=== PATIENT | male | born 1940 | race Caucasian/White ===

== ENCOUNTER 2024-05-17 09:43 | Outpatient (AMB) | payer MEDICARE, SELFPAY ==
--- NOTE | 2024-05-17 10:10 | A.OFFVIS_ITS ---
Vital Signs 3 05/17/24 10:15 Height 5 ft 9 in Weight 172 lb BMI 25.4 BP 135/62 Blood Pressure Location Lt brachial Position Sitting Respiration 16 Pulse 58 Pulse Source Pulse Oximeter Pulse Oximetry (%) 96 Oxygen Delivery Method Room Air Intake Visit Reasons: Chronic Low Back Pain Allergies No Known Allergies Allergy (Verified 05/17/24 10:16) Medication List - Last Reconciled 05/17/24 by Denise Velazco LPN alfuzosin ER 10 mg PO DAILY atorvastatin 40 mg PO DAILY chlorthalidone 25 mg PO DAILY famotidine 20 mg PO BID levothyroxine 137 mcg PO DAILY losartan 100 mg PO DAILY naproxen sodium (Aleve) 220 mg PO Q12H PRN sucralfate 1 g PO BID HPI HPI Chronic Low Back Pain: Details: 84-year-old male who presents to the office today for evaluation of chronic back pain. The patient reports he has a long-standing history of chronic back pain which is worse on the left side. He recalls he had burning sensation down the legs last year. He had completed physical therapy without much improvement. He reports worsening pain with walking upstairs and mild pain with walking downstairs. He also had difficulty sitting down. He was seen by Dr. Finn, who did not believe that he was a candidate for surgery, and recommended physical therapy or shots. He had an MRI done about 6 months ago. He was evaluated by chief of spinal surgery at [facility] who also informed that he was not a candidate surgery and recommend shots. He has had shots without much improvement in his pain. Physical Exam Vital Signs: Last Vital Signs Pulse 58 05/17/24 10:15 Resp 16 05/17/24 10:15 BP 135/62 05/17/24 10:15 Pulse Ox 96 05/17/24 10:15 Oxygen Delivery Method Room Air 05/17/24 10:15 BMI result Body Mass Index 25.4 General: Appears afebrile. Alert and oriented. Mood and affect appropriate. Follows and participates in conversation appropriately. Respiratory effort is unlabored. Able to transition from sit to stand unassisted. Ambulates with bilaterally normal heel strike and toe off. Results Reviewed Results Reviewed: Assessment & Plan Assessment & Plan (1) Lumbar spinal stenosis: Code(s): M48.061 - Spinal stenosis, lumbar region without neurogenic claudication Category: Medical Plan 84-year-old gentleman with a long-standing history of both central and spinal components of stenosis. He has burning pain down his left leg, likely secondary to spinal stenosis at the L3-L4 region. I discussed both vertiflex procedure as well as minimal invasive spinal decompression with spine surgery. We went over details of both procedures. I think he is a suitable candidate for either option. He will think about which option to pursue and let us know and we will either book him for vertiflex procedure or refer him to spine surgery colleagues accordingly. Scribed for Dr. Lozano by Sangeeta emergency medical service manager, on 05/17/2024. I, Dr. Lozano, have personally reviewed and agree with the information entered by the scribe Coding Level of Care Code New Pt Level 4 (97334) Diagnoses Lumbar spinal stenosis M48.061
[2024-05-17 10:15] VITALS: BP 135/62; PULSE 58; RESP 16; O2SAT 96; BMI 25.4
== END 2024-05-17 10:49 | disposition home or self-care (01) ==
PROVIDERS: PCP Internal Medicine; Referring Provider Internal Medicine; Visit Provider Internal Medicine
DX: M48.061 Spinal stenosis, lumbar region without neurogenic claudication (principal)
CPT/HCPCS: 99204

== ENCOUNTER → 2024-05-17 09:43 | Outpatient (BNVA) | payer MEDICARE, SELFPAY | PROVIDERS: PCP Internal Medicine; Referring Provider Internal Medicine; Visit Provider Internal Medicine | DX: M48.061 Spinal stenosis, lumbar region without neurogenic claudication (principal) | CPT/HCPCS: 99202 ==

== ENCOUNTER 2024-07-14 09:10 | Outpatient (AMB) | payer MEDICARE, SELFPAY ==
[2024-07-14 09:47] VITALS: BMI 23.6
--- NOTE | 2024-07-14 09:47 | HO.SPINEOV ---
Vital Signs 07/14/24 09:47 Height 5 ft 9 in Weight 160 lb BMI 23.6 Intake Visit Reasons: Lumbar spinal stenosis Intake Note: Mr. Aldana is here today c/o low back pain and Left thigh burning sensation down to the calf . Hourly Shift Manager Required: No Allergies No Known Allergies Allergy (Verified 07/14/24 09:48) Physical Exam Vital Signs: BMI result Body Mass Index 23.6 Assessment & Plan Assessment & Plan (1) Lumbar stenosis with neurogenic claudication: Code(s): M48.062 - Spinal stenosis, lumbar region with neurogenic claudication Category: Medical Plan Dear colleague Thank you for referring Jarad Aldana to the office today with a chief complaint of bilateral leg pain, left more than right walking and standing. HPI: This 84-year-old male is having a classic story of neurogenic claudication for more than a year. He states that he has left-sided back pain that radiates down his left leg and to a lesser degree to the right leg with walking and standing. He can walk 100 ft were stand for 5 minutes before the symptoms start. He now ambulates with a cane to relieve his symptoms. Leaning forward over a shopping cart or sitting down alleviates the symptoms. The pain feels like a burning sensation and cramps in the calves. He has tried multiple epidural steroid injections. He has tried physical therapy for the last 8 months. He tried gabapentin and tramadol and he is now using Aleve and Tylenol which is not helping either. He saw spinal specialist in [place] who recommended a laminectomy but made him aware that this would not help for his back pain. PMH: Perforated colon 19 years ago. Hypertension. Medications: Losartan, sucralfate, Pepcid, chlorthalidone, Aleve, Tylenol Allergies: NKDA Social history: , retired. Nonsmoker Physical Exam: Pleasant male. He walks in a flexed position. He is able to reproduce the symptoms in the office after short period of standing. No motor or sensory deficits. Radiological Studies: MRI done at [facility] on 01/15/2024 shows a mild degenerative scoliosis starting at L3-4 but more importantly there is moderate to severe L4-5 spinal stenosis with bilateral lateral recess stenosis. Impression/Plan: This 84-year-old male is suffering from neurogenic claudication due to L4-5 spinal stenosis. I offered him an L4-5 decompression on 10/12/2024. Of note, in contrast to the spine surgeon in [place], I do think the left-sided back pain will respond to the surgery as this is not an axial type back pain but radicular pain. The patient will get preoperative clearance from his primary care physician. Thank you for allowing me to participate in your patients care. total time spent was 50 minutes in counseling ,coordination of plan, personal review of imaging, surgical decision making and subsequent plan Santana Castellanos MD, PhD Spine Fellowship Trained Neurosurgeon Director, [facility] Coding Level of Care Code New Pt Level 4 (12082) Diagnoses Lumbar stenosis with neurogenic claudication M48.062
== END 2024-07-14 11:06 | disposition home or self-care (01) ==
PROVIDERS: PCP Internal Medicine; Referring Provider Internal Medicine; Visit Provider Neurological Surgery
DX: M48.062 Spinal stenosis, lumbar region with neurogenic claudication (principal)
CPT/HCPCS: 99204

== ENCOUNTER → 2024-07-14 09:10 | Outpatient (BNVA) | payer MEDICARE, SELFPAY | PROVIDERS: PCP Internal Medicine; Visit Provider Neurological Surgery | DX: M48.062 Spinal stenosis, lumbar region with neurogenic claudication (principal) | CPT/HCPCS: 99202 ==

== ENCOUNTER 2024-11-23 09:49 | Day surgery (SDC) | payer MEDICARE, SELFPAY ==
[2024-09-22 11:24] VITALS: BMI 23.3
--- NOTE | 2024-11-22 11:59 | HO.ANESPROP2 ---
Documented by User: Deanna Youngblood NP 11/22/24 12:02 HPI - Anesthesia Eval Consult details Narrative: 84yo M for L4-5 lumbar decompression Medically optimized per PCP [facility] Active Problems Active Problems: All Active Problems Lumbar stenosis with neurogenic claudication (Acute) Lumbar spinal stenosis (Acute) Past Medical History Medical History (Updated 10/25/24 @ 15:[address], RN) BPH (benign prostatic hyperplasia) Stage 3 chronic kidney disease Iliac artery aneurysm, 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 Spinal stenosis of lumbosacral region Dental infection (~06/2024) Back pain Hx-TIA (transient ischemic attack) (~2021) HLD (hyperlipidemia) HTN (hypertension) Hypothyroidism GERD (gastroesophageal reflux disease) 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 History of urinary retention Hx of diverticulitis of colon Surgical History Surgical History (Updated 11/23/24 @ 10:45 by Vandana Davies RN) History of carpal tunnel release History of skin surgery Hx of nasal septoplasty Hx of colonoscopy History of colon surgery (~2005) Social History Social History (Updated 09/22/24 @ 11:[address] RN) Household Members: Spouse Housing: House Are you a primary youth career specialist to a significant other at home: No Do you presently have visiting nurse or other home services: No Patient Tobacco Use Status: Former Tobacco user Tobacco use type: Cigarette Smoked in Last 30 Days: No Use of substances other than those prescribed or required for medical reasons: No Substance Use Type: Marijuana Substance Use Type Other:: FORMER MARIJUANA WITH VAPE Substance Use Frequency: Daily Have you been hit, kicked, punched, or otherwise hurt by someone within the past year? If so, by whom?: No Are you DNR?: No Advance Directives: No Advance Directives Information Provided: No Advance Directives on File: No Recently lost weight without trying: No How much weight loss: Not applicable Eating poorly because of decreased appetite: No Nutrition screen score: 0 Nutrition Risks: No Nutritional Risk Meds Allergies Allergy/AdvReac Type Severity Reaction Status Date / Time No Known Allergies Allergy Verified 09/22/24 11:44 Home Medications ?Medication ?Instructions ?Recorded ?Confirmed ?Last Taken ?Type alfuzosin 10 mg tablet,extended 10 mg PO DAILY 05/17/24 09/22/24 Unknown History release 24 hr atorvastatin 40 mg tablet 40 mg PO DAILY 05/17/24 09/22/24 Unknown History chlorthalidone 25 mg tablet 25 mg PO DAILY 05/17/24 09/22/24 Unknown History famotidine 20 mg tablet 20 mg PO BID 05/17/24 09/22/24 Unknown History levothyroxine 137 mcg tablet 137 mcg PO DAILY 05/17/24 09/22/24 Unknown History losartan 100 mg tablet 100 mg PO DAILY 05/17/24 09/22/24 Unknown History naproxen sodium 220 mg capsule 220 mg PO Q12H PRN Pain 05/17/24 09/22/24 Unknown History (Aleve) sucralfate 1 gram tablet 1 g PO BID 05/17/24 09/22/24 Unknown History aspirin 81 mg tablet,delayed 81 mg PO DAILY 09/22/24 09/22/24 Unknown History release cholecalciferol (vitamin D3) 25 25 mcg PO DAILY 09/22/24 09/22/24 Unknown History mcg (1,000 unit) capsule (Vitamin D3) cyanocobalamin (vitamin B-12) 3,000 mcg PO DAILY 09/22/24 09/22/24 Unknown History 1,000 mcg tablet (Vitamin B-12) ferrous sulfate 325 mg (65 mg 325 mg PO DAILY 09/22/24 09/22/24 Unknown History iron) tablet (iron) hyoscyamine sulfate 0.125 mg 0.125 mg PO QID 09/22/24 09/22/24 Unknown History tablet (Levsin) Exam Height,Weight and Vital Signs: Height 5 ft 9 in Weight 71.668 kg Pertinent Lab Results Pertinent Lab Results: 09/2024 Labs from outside facility CBC OK BMP BUN/Creat elevated 35/1.9 Narrative Narrative: EKG 09/2024 SR @ 87 PSVCs Assessment and Plan Assessment Anesthesia Assessment: Chart Reviewed Documented by User: Jennifer Washburn MD 11/23/24 10:45 [facility] Past Medical History Medical History (Updated 10/25/24 @ 15:[address] RN) BPH (benign prostatic hyperplasia) Stage 3 chronic kidney disease Iliac artery aneurysm, 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 Spinal stenosis of lumbosacral region Dental infection (~06/2024) Back pain Hx-TIA (transient ischemic attack) (~2021) HLD (hyperlipidemia) HTN (hypertension) Hypothyroidism GERD (gastroesophageal reflux disease) 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 History of urinary retention Hx of diverticulitis of colon Family History Family history of problems with anesthesia: No Surgical History Surgical History (Updated 11/23/24 @ 10:45 by Vandana Davies RN) History of carpal tunnel release History of skin surgery Hx of nasal septoplasty Hx of colonoscopy History of colon surgery (~2005) History of Problems with Anesthesia: No Social History Social History (Updated 09/22/24 @ 11:[address] RN) Household Members: Spouse Housing: House Are you a primary youth career specialist to a significant other at home: No Do you presently have visiting nurse or other home services: No Patient Tobacco Use Status: Former Tobacco user Tobacco use type: Cigarette Smoked in Last 30 Days: No Use of substances other than those prescribed or required for medical reasons: No Substance Use Type: Marijuana Substance Use Type Other:: FORMER MARIJUANA WITH VAPE Substance Use Frequency: Daily Have you been hit, kicked, punched, or otherwise hurt by someone within the past year? If so, by whom?: No Are you DNR?: No Advance Directives: No Advance Directives Information Provided: No Advance Directives on File: No Recently lost weight without trying: No How much weight loss: Not applicable Eating poorly because of decreased appetite: No Nutrition screen score: 0 Nutrition Risks: No Nutritional Risk Meds Allergies Allergy/AdvReac Type Severity Reaction Status Date / Time No Known Allergies Allergy Verified 09/22/24 11:44 Home Medications ?Medication ?Instructions ?Recorded ?Confirmed ?Last Taken ?Type alfuzosin 10 mg tablet,extended 10 mg PO DAILY 05/17/24 09/22/24 Unknown History release 24 hr atorvastatin 40 mg tablet 40 mg PO DAILY 05/17/24 09/22/24 Unknown History chlorthalidone 25 mg tablet 25 mg PO DAILY 05/17/24 09/22/24 Unknown History famotidine 20 mg tablet 20 mg PO BID 05/17/24 09/22/24 Unknown History levothyroxine 137 mcg tablet 137 mcg PO DAILY 05/17/24 09/22/24 Unknown History losartan 100 mg tablet 100 mg PO DAILY 05/17/24 09/22/24 Unknown History naproxen sodium 220 mg capsule 220 mg PO Q12H PRN Pain 05/17/24 09/22/24 Unknown History (Aleve) sucralfate 1 gram tablet 1 g PO BID 05/17/24 09/22/24 Unknown History aspirin 81 mg tablet,delayed 81 mg PO DAILY 09/22/24 09/22/24 Unknown History release cholecalciferol (vitamin D3) 25 25 mcg PO DAILY 09/22/24 09/22/24 Unknown History mcg (1,000 unit) capsule (Vitamin D3) cyanocobalamin (vitamin B-12) 3,000 mcg PO DAILY 09/22/24 09/22/24 Unknown History 1,000 mcg tablet (Vitamin B-12) ferrous sulfate 325 mg (65 mg 325 mg PO DAILY 09/22/24 09/22/24 Unknown History iron) tablet (iron) hyoscyamine sulfate 0.125 mg 0.125 mg PO QID 09/22/24 09/22/24 Unknown History tablet (Levsin) Exam Airway Mallampati Class: II TM Dist: >3cm Neck ROM: Full Assessment and Plan Assessment Anesthesia Assessment: Anesthesia Plan Discussed Final Anesthetic Review Family History of Problems with Anesthesia: No History of Problems with Anesthesia: No NPO: Yes ASA Class: III Final Preanesthetic Review: No Changes in Pt Med Stat, Meds/Allgs Chart Reviewed, Consent Obtained/Reviewed and Anes Risks/Benef Reviewed Patient Risk: Intermediate Procedure Risk: Intermediate Anesthetic Plan Anesthetic Plan: GA Disposition: Standard PACU
[2024-11-23] VITALS (9 sets, daily range): BP systolic 153–178; BP diastolic 53–64; PULSE 57–70; RESP 12–17; TEMP 36.4–36.9; O2SAT 95–100; BMI 23.8
--- NOTE | ~2024-11-23 | FL_ITS ---
EXAMINATION: FL GUIDANCE ONLY HISTORY: L4-5 DECOMPRESSION COMPARISON: None available. TECHNIQUE: Fluoroscopy time: 2.9 minutes. Cumulative Dose: 1.8128 mGy. DAP: 0.7886 mGym2 Images: 1. FINDINGS: A single fluoroscopic spot film of the lumbar spine in the lateral projection demonstrates a probe corrected to the L4-5 intervertebral disc space from a posterior approach. FL/FL guidance in OR IMPRESSION: Fluoroscopy during procedure. Please see procedure report for additional information. Electronically signed by: Tacos Moseley MD 11/24/2024 11:17 AM EDT
--- NOTE | 2024-11-23 10:30 | PC.NURSE ---
Patient in preop. Had recent oral surgery a week ago and was put on, per him, prophylactic oral antibiotics. Patient still taking this antibiotic, last dose yesterday. Dr. Washburn and Dr. Castellanos made aware. Okay to proceed with surgery at this time.
[2024-11-23] MEDS: Gabapentin 300 MG CAPSULE PO (10:52)
[2024-11-23] MEDS: Lactated Ringers 1,000 ML 100 ML IVCONT (10:52)
[2024-11-23] MEDS: methocarbamoL 750 MG TABLET PO (10:52)
--- NOTE | 2024-11-23 11:27 | MHC.SHP ---
Pre-Procedural Eval Section A - 24 Hr Update-Section A only Date of Service: 11/23/24 The patient is an INPATIENT: No Section B - Complete if H&P > 30 days Chief Complaint: Spinal stenosis, lumbar region with neurogenic Details of Present Illness: Bilateral leg pain, left more than right Allergies: Allergies Allergy/AdvReac Type Severity Reaction Status Date / Time No Known Allergies Allergy Verified 11/23/24 10:45 Review of Systems Sugical H&P ROS: Negative: Constitution, Cardiovascular, Respiratory, Neurological, Psychiatric, Hem-Onc, Allergic/Immunologic, Gastrointestinal, Genitourinary, Musculoskeletal, Integumentary, Endocrine and Eyes/Ears/Nose/Throat Exam Surgical H&P Exam: Normal: HEENT, Normal: Heart, Normal: Lungs, Normal: Extremities, Normal: Abdomen, Normal: Skin (Awake, alert) and Normal: Neurological Plan Diagnosis/Plan: Unchanged I have reviewed the history and physical and performed a pertinent physical examination on my patient. No changes have occurred unless specified. L4-5 decompression Time Spent With Patient Time: Total time managing care of this patient today ____ minutes.
[2024-11-23] MEDS: ceFAZolin Sodium/Dextrose,Iso 2 GM/50 ML PIGGYBACK IV (12:31)
--- NOTE | 2024-11-23 12:47 | PM.DS ---
DS: Providers Provider Date of Service: 11/23/24 Date of discharge: 11/23/24 Primary care physician: Carey Mckeon MD Admitting clinician: Santana Castellanos DS: Diagnosis Discharge Diagnosis (1) Lumbar stenosis with neurogenic claudication: Status: Acute DS: Summary Time Attestation Discharge Coordination Time (in mins): 5 Quality: Safe Use of Opioids Does Pt have an Active Cancer Diagnosis on the Problem List?: No Quality: Stroke Does the patient have a stroke diagnosis?: No Physical Exam Vital Signs: Vital Signs: Last Vital Signs Temp 97.5 F 11/23/24 10:36 Pulse 57 11/23/24 10:36 Resp 16 11/23/24 10:36 BP 178/61 H 11/23/24 10:36 Pulse Ox 98 11/23/24 10:36 O2 Del Method Room Air 11/23/24 10:36 BMI result Body Mass Index 23.8 Discharge Plan Discharge Patient Disposition: Home, Self-Care Referrals: Carey Mckeon MD [Primary Care Provider] - 1 Week Discharge Medications: New oxycodone 5 mg tablet 5 mg PO Q4H PRN (Reason: pain) Qty: 20 0RF Rx Instructions: Partial Fill upon patient request. docusate sodium [Colace] 100 mg capsule 100 mg PO BID Qty: 20 0RF Continued cyanocobalamin (vitamin B-12) [Vitamin B-12] 1,000 mcg Tablet 3,000 mcg PO DAILY hyoscyamine sulfate [Levsin] 0.125 mg Tablet 0.125 mg PO QID ferrous sulfate [iron] 325 mg (65 mg iron) Tablet 325 mg PO DAILY cholecalciferol (vitamin D3) [Vitamin D3] 25 mcg (1,000 unit) Capsule 25 mcg PO DAILY amoxicillin 875 mg tablet PO alfuzosin 10 mg tablet extended release 24 hr 10 mg PO DAILY sucralfate 1 gram tablet 1 g PO BID losartan 100 mg tablet 100 mg PO DAILY atorvastatin 40 mg tablet 40 mg PO DAILY famotidine 20 mg tablet 20 mg PO BID chlorthalidone 25 mg tablet 25 mg PO DAILY levothyroxine 137 mcg tablet 137 mcg PO DAILY naproxen sodium [Aleve] 220 mg capsule 220 mg PO Q12H PRN (Reason: Pain) Held aspirin 81 mg Tablet,Delayed Release (Dr/Ec) 81 mg PO DAILY Hold Instructions: Resume on 11/30/24. You may resume aspirin 1 week after surgery Discharge Orders: Discharge Order (Routine); Ordered 11/23/24 Ordered By: Jericho Carter Diet: Advance to usual diet Activity on Discharge: As tolerated Activity Restrictions/Additional Instructions: After your spinal surgery we ask you to observe the following restrictions/guidelines: Activity: It is normal to feel some discomfort as you increase your activity, but that will improve with time. We ask you avoid heavy lifting or acitivities that cause pain. As a general rule, 8lbs is a safe limit for lifting right after surgery. Walk as much as you feel comfortable but not to exhaustion. You will feel extra tired the first few days after surgery. Stay well hydrated. It is OK to walk up and down stairs You may return to driving when you are off narcotics (such as vicodin, oxycodone, dilaudid, etc), and you are back to normal functional capacity. If you have any concerns please check with office before driving. Return to work is specific to each patient and each surgery, so please speak with your doctor/PA at first follow up. Please bring paperwork such as FMLA at that time if you need it filled out. Medications: For optimum pain control, it is best to start with a combination of 500 mg of Tylenol every 4 hours with 600 mg of Motrin every 8 hours, and use narcotics as needed in between for breakthrough pain. We will give you a short supply of narcotics after surgery (usually one weeks worth). If you need more please call the office but do not use more than prescribed. You will need to give our office 48 hours notice if you need narcotics refilled and we do not fill narcotics on weekends or evenings. If you are on a narcotic, it is a good idea to take a stool softener such as colace or senna to avoid constipation If you take blood thinner such as aspirin, Plavix, Coumadin, Effient, Eliquis etc for conditions such as Afib, DVT, Pulmonary embolus, coronary disease, stents etc please speak with your surgeon about specific details as to when you can resume these medications. You can resume NSAIDs on post op day 1 (eg: Motrin, Naproxen, etc). Follow up: Please call the office, , after surgery to arrange a 3 week follow up for wound check. Wound Care: You may remove your dressing on the first day after surgery. ?You may ?leave open to air. Please do not remove the steri strips underneath. they will fall off on their own in one week. IT IS NORMAL FOR THE WOUND TO OOZE OR BE BLOODY FOR A FEW DAYS AFTER SURGERY. ?IF THIS HAPPENS JUST PLACE NEW DRESSING OVER IT TO AVOID STAINING CLOTHES. You may shower on post op day # 1 We ask that you do not let the water soak the wound. If it does get wet, just towel dry lightly. Please do not scrub your incision or place any type of chemical/ointment on the wound. No tub baths, pools or jacuzzis for one month. If you have any leaking or redness from your wound, or fevers, please call office Print Language: Uzbek
[2024-11-23] MEDS: Acetaminophen 1,000 MG/100 ML PIGGYBACK 400 MG IV (13:15)
--- NOTE | 2024-11-23 13:28 | P.OP_ITS ---
Operative Note Operative Note Date of Service: 11/23/24 Narrative: Preoperative Diagnosis: L4-5 spinal stenosis/lateral recess stenosis/neural foraminal stenosis Operation: L4-5 Laminotomy, Partial facetectomy and foraminotomy with use of microscope Consent Informed Consent was obtained for this operation. I have explained the nature, purpose and benefits of the operation. I have discussed the risks and benefit of the operation including possible complications or adverse events with patient/family. Alternative(s) were discussed with the patient with their relative benefits and risks as well as the consequences of not accepting the operation were included in obtaining consent. Surgeon: LAURI FRASER MD, PHD Procedure Assisted By: Jericho Stephen Description of Procedure This patient is suffering from neurogenic claudication a left-sided back pain. MRI shows spinal stenosis L4-5. The patient was offered a decompression. The procedure complications were explained. The patient was consented. The patient was brought to the operating room and endotracheally intubated. The patient was turned in prone position on the Domenic frame. Prep and drape was done followed by timeout. The Physician assistant director of security provided access. A mid lumbar incision was made followed by release of the paravertebral muscle on the left side to expose the L4-5 lamina and facet joints. An intraoperative x-ray was obtained to confirm the correct level. The microscope was brought in. I took over the procedure. The high-speed drill was used to do a L4-5 laminotomy until flavum ligament was reached. A #2 Kerrison was used to expand the laminotomy near flush to the pedicles and to include a partial facetectomy. The flavum ligament was opened and resected with a #3 Kerrison to decompress the underlying thecal sac. The flavum ligament was removed to decompress the lateral recess and the exiting L5 nerve root. The spinous process was undercut and then flavum ligament was resected contralaterally. This resulted in a deployment of the thecal sac and good decompression of the bilateral lateral recesses. A long nerve hook could be easily passed along the medial side of the pedicles as a sign of adequate decompression. The microscope was removed. Hemostasis was done. The physician assistant director of security close the Incision in 2 layers. Steri-Strips were used to approximate incision. An OpSite with Tegaderm was used to cover the incision. All sponge needle counts were correct. Patient was extubated and transported in stable is to recovery room. Anesthesia: General Estimated Blood Loss (ml): 20 Complications: None Duration of Surgery: Under 60 Minutes Postoperative Plan: Discharge to home
== END 2024-11-23 15:09 | disposition home or self-care (01) ==
PROVIDERS: PCP Internal Medicine; Visit Provider Neurological Surgery
PROC: (CPT 63047; principal; 2024-11-23 12:40)
DX: M48.062 Spinal stenosis, lumbar region with neurogenic claudication (principal); M54.16 Radiculopathy, lumbar region; M79.605 Pain in left leg; M79.604 Pain in right leg; R26.2 Difficulty in walking, not elsewhere classified; I12.9 Hypertensive chronic kidney disease with stage 1 through stage 4 chronic kidney disease, or unspecified chronic kidney disease; N18.30 Chronic kidney disease, stage 3 unspecified; E78.5 Hyperlipidemia, unspecified; I72.3 Aneurysm of iliac artery; Z87.19 Personal history of other diseases of the digestive system; Z79.1 Long term (current) use of non-steroidal anti-inflammatories (NSAID); Z99.89 Dependence on other enabling machines and devices; Z79.899 Other long term (current) drug therapy; Z98.890 Other specified postprocedural states; Z87.891 Personal history of nicotine dependence
CPT/HCPCS: 63047; J0131; J0690; J1100; J1885; J2003; J2371; J2405; J2704; J3010

== ENCOUNTER → 2024-11-23 09:49 | Outpatient (BNV) | payer MEDICARE, SELFPAY | PROVIDERS: PCP Internal Medicine; Visit Provider Neurological Surgery | DX: M48.062 Spinal stenosis, lumbar region with neurogenic claudication (principal) | CPT/HCPCS: 63047; 99499 ==

== ENCOUNTER 2024-12-13 14:18 | Outpatient (AMB) | payer MEDICARE, SELFPAY ==
--- OUTSIDE RECORDS SUMMARY | 2024-12-13 14:22 | XMS_ITS | Clinical Summary ---
Author Organization Formerly [facility] Address [address] [place] [address] Care Team Providers Care Cattle Dealer Name Role Phone Carey Mckeon MD Primary Care Provider [phone] Allergies No known active allergies Medications thyroid (ARMOUR) 120 MG tablet Take 120 mg by mouth daily. Active PANTOprazole (PROTONIX) 40 MG EC tablet Take 40 mg by mouth every morning before breakfast. Active losartan (COZAAR) 100 MG tablet Take 100 mg by mouth daily. Active chlorthalidone (HYGROTON) 25 MG tablet Take 25 mg by mouth daily. Active naproxen sodium (ALEVE) 220 mg tablet Take 220 mg by mouth 3 (three) times a day with meals. Take with meals or food to reduce stomach upset. Active acetaminophen (TYLENOL) 325 MG tablet Take 650 mg by mouth 4 times daily (every 6 hours) as needed for mild pain. Active ketotifen (ZADITOR) 0.025 % ophthalmic solution Administer 1 drop to both eyes 2 (two) times a day. Active Social History Tobacco Use Types Packs/Day Years Used Date Smoking Tobacco: Former Cigarettes Q uit: 01/18/1994 Smokeless Tobacco: Never Alcohol Use Standard Drinks/Week Comments Yes 0 (1 standard drink = 0.6 oz pur e alcohol) very RARELY Sex and Gender Information Value Date Recorded Sex Assigned at Not on file Legal Sex Male 11:07 AM EDT Gender Identity Not on file Sexual Orientation Not on file Last Filed Vital Signs Vital Sign Reading Time Taken Comments Blood Pressure 131/80 01/19/2019 10:57 AM EDT Pulse 90 01/19/2019 10:57 AM EDT Temperature 36.3 ??C (97.3 ??F) 01/19/2019 9:32 AM ED T Respiratory Rate 16 01/19/2019 10:57 AM EDT Oxygen Saturation 98% 01/19/2019 10:57 AM EDT Inhaled Oxygen Concentration - - Weight - - Height - - Body Mass Index - - Plan of Treatment Health Maintenance Due Date Last Done Comments DTaP/Tdap/Td Vaccines (1 - Tdap) 1961 Pneumococcal Vaccines 50+ (1 of 1 - PCV) 1992 Zoster (Shingles) Vaccine (1 of 2) 1992 RSV Vaccine 60 years and old er and Patients (1 - 1-dose 75+ series) 2017 COVID-19 Vaccine ( - 2023-2 5 season) 2024 Influenza Vaccine 03/02/2025 Colonoscopy (Out of Age Range) 01/19/2029 01/19/2019 Hepatitis B Vaccines Aged Out No long er eligible based on patient's age to complete this topic Insurance MEDICARE PART A & B [facility] Care Teams Cattle Dealer Relationship Specialty Start Date End Date Carey Mckeon MD [address] [address] PCP - General Internal Medicine 01/18/19
--- OUTSIDE RECORDS SUMMARY | 2024-12-13 14:22 | XMS_ITS ---
Author Name [facility] Organization Unknown Encounters Encounter Type Encounter Reason Primary Diagnosis Location Date Ambulatory [facility] 05/12/2024 Care Team Organization Name Specialty Phone Email Start Date End Da [facility] 2024
--- NOTE | 2024-12-13 14:48 | HO.SPINEOV ---
Intake Visit Reasons: 1st post op Intake Note: Mr. Aldana is here today for his 1st post op. Seam Hammerer Required: No Allergies No Known Allergies Allergy (Verified 12/13/24 14:49) Assessment & Plan Assessment & Plan (1) Lumbar stenosis with neurogenic claudication: Code(s): M48.062 - Spinal stenosis, lumbar region with neurogenic claudication Category: Medical Plan Jarad is a pleasant 84 year old male who underwent L4-[address] Castellanos a few weeks ago. Unfortunately, since his surgery he reports that he has essentially experienced the same pain that he had prior to surgery, aside from feeling about 1-2 days of relief directly after the procedure. Given this, he is still completing his ADLs, and attempting to walk daily. He reports that he only took 2-3 oxycodone, and has been using [id number] medications since then to help mitigate his pain as he does not like narcotic pain medication due to the side effects. We extensively discussed the postoperative healing course, and I believe he is likely suffering from some postoperative inflammation that we will resolve on its own. No new neurological deficits. The patient ambulates well and rises from a seated position without difficulty. His posterior incision site is well healing with no signs of drainage. I would like Jarad to follow up with us again in 6 weeks for a 2nd postop visit. Conrado Castellanos MD,PhD [facility] Coding Level of Care Code Global (80861) Diagnoses Lumbar stenosis with neurogenic claudication M48.062
== END 2024-12-13 15:11 | disposition home or self-care (01) ==
LOC: HO.HNS 14:19
PROVIDERS: PCP Internal Medicine; Visit Provider Physician Assistant
DX: M48.062 Spinal stenosis, lumbar region with neurogenic claudication (principal)
CPT/HCPCS: 99024

== ENCOUNTER → 2024-12-13 14:18 | Outpatient (BNVA) | payer MEDICARE, SELFPAY | PROVIDERS: PCP Internal Medicine; Visit Provider Physician Assistant | DX: Z48.811 Encounter for surgical aftercare following surgery on the nervous system (principal); Z98.890 Other specified postprocedural states | CPT/HCPCS: 99212 ==

== ENCOUNTER 2025-01-24 13:17 | Outpatient (REF) | payer MEDICARE, SELFPAY ==
--- NOTE | ~2025-01-24 | XR_ITS ---
EXAMINATION: XR LUMBAR SPINE 4 OR MORE VIEWS HISTORY: M48.061 - Spinal stenosis, lumbar region without neurogenic claudication COMPARISON: There are no prior studies for comparison. FINDINGS: AP, and neutral, flexion, and extension lateral views of the lumbar spine are submitted. Osseous mineralization is normal. There is moderate levoscoliosis and straightening of the normal lumbar lordosis. Five nonrib-bearing lumbar vertebral bodies are identified, maintaining normal height without evidence of fracture or spondylolisthesis. There is moderate degenerative disc disease with disc space narrowing and osteophyte formation, most prominent at L4-5 and L5-S1. There is no abnormal motion with flexion or extension. 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 The visualized paraspinal soft tissues are unremarkable. XR/XR lumbar spine 4V min IMPRESSION: Moderate levoscoliosis and degenerative disc disease as described. No abnormal motion with flexion or extension. Electronically signed by: Tacos Moseley MD 01/24/2025 02:43 PM EDT
== END 2025-01-24 13:18 | disposition home or self-care (01) ==
LOC: HO.HOSX 13:17
PROVIDERS: PCP Internal Medicine; Visit Provider Physician Assistant
DX: M48.061 Spinal stenosis, lumbar region without neurogenic claudication (principal)
CPT/HCPCS: 72110; 99212

== ENCOUNTER 2025-01-24 13:17 | Outpatient (AMB) | payer MEDICARE, SELFPAY ==
--- NOTE | 2025-01-24 13:20 | A.SPINEOV_ITS ---
Intake Visit Reasons: 2nd post op Intake Note: Mr. Aldana is here today for his 2nd post op visit. Administrative Library Assistant Required: No Allergies No Known Allergies Allergy (Verified 01/24/25 13:21) Assessment & Plan Assessment & Plan (1) Lumbar spinal stenosis: Code(s): M48.061 - Spinal stenosis, lumbar region without neurogenic claudication Category: Medical (2) Lumbar spinal stenosis: Code(s): M48.061 - Spinal stenosis, lumbar region without neurogenic claudication Category: Medical Plan Operation: L4-5 Laminotomy, Partial facetectomy and foraminotomy Jarad is a pleasant 84-year-old male who underwent L4-[address] Castellanos about 2 months ago. Unfortunately, he continues to report the same low back pain and left leg pain that he had prior to surgery. He states that he did restart immunotherapy for his skin cancer about a month ago, and asked questions regarding this. Although this may protracted is healing course, I do not believe it is solely responsible for his continued pain. Despite his pain, he has tried to remain mobile and continue ambulating with the assistance of his cane. He has continued to complete ADLs to the best of his ability. He asked s everal questions regarding the postoperative healing course, all of which I answered to the best of my ability. No new neurological deficits. The patient ambulates well with the assistance of a cane. I would like to send Jarad for a course of physical therapy to see if they can work out some of the musculoskel Conrado Castellanos MD,PhD [facility] etal pain then he may be having alongside his baseline nerve compression pain. I advised him to call the clinic after physical therapy is complete, and if he is not starting to feel better make improvements we may need to order a repeat lumbar MRI. For the time being I would like him to obtain standing x-rays. Orders: Orders PT Evaluation and Treatment Today M48.061 - Spinal stenosis, lumbar region without neurogenic claudication XR lumbar spine 4V min Today M48.061 - Spinal stenosis, lumbar region without neurogenic claudication Coding Level of Care Code Global (21256) Diagnoses Lumbar spinal stenosis M48.061
--- OUTSIDE RECORDS SUMMARY | 2025-01-24 15:39 | XMS_ITS | Clinical Summary ---
Author Organization [facility] Address [address] [place] [address] Care Team Providers Care Blister Packing Machine Tender Name Role Phone Carey Mckeon MD Primary Care Provider [phone] Allergies No known active allergies Medications thyroid [...] 90 01/19/2019 10:57 AM EDT Temperature 36.3 C (97.3 F) 01/19/2019 9:32 AM EDT Respiratory Rate 16 01/19/2019 10:57 AM EDT [...] - 1-dose 75+ series) 2017 COVID-19 Vaccine (1 - 2023-2 5 season) 2024 Influenza Vaccine 03/02/2025 Colonoscopy (Out of Age Range) 01/19/2029 01/19/2019 Hepatitis B Vaccines Aged Out No long er eligible based on patient's age to complete this topic Insurance MEDICARE PART A & B [facility] Care Teams Blister Packing Machine Tender Relationship Specialty Start Date End Date Carey Mckeon MD [address] [address] PCP - General Internal Medicine 01/18/19
== END 2025-01-24 14:20 | disposition home or self-care (01) ==
LOC: HO.HNS 13:18
PROVIDERS: PCP Internal Medicine; Visit Provider Physician Assistant
DX: M48.061 Spinal stenosis, lumbar region without neurogenic claudication (principal)
CPT/HCPCS: 99024

== ENCOUNTER → 2025-01-24 13:55 | Outpatient (BNV) | payer MEDICARE, SELFPAY | PROVIDERS: PCP Internal Medicine; Visit Provider Radiology Diagnostic Radiology | DX: M51.369 Other intervertebral disc degeneration, lumbar region without mention of lumbar back pain or lower extremity pain (principal) | CPT/HCPCS: 72110 ==

== ENCOUNTER 2025-05-25 12:57 | Outpatient (AMB) | payer MEDICARE, SELFPAY ==
--- NOTE | 2025-05-25 13:22 | HO.SPINEOV ---
Vital Signs 05/25/25 13:25 Height 5 ft 9 in Weight 155 lb BMI 22.9 Intake Visit Reasons: MRI f/u Intake Note: Mr. Aldana is here today to F/u on the results to his MRI. MRI done at [facility]. Paint Line Production Supervisor Required: No Allergies No Known Allergies Allergy (Verified 05/25/25 13:23) Physical Exam Vital Signs: BMI result Body Mass Index 22.9 Assessment & Plan Assessment & Plan (1) Neuroforaminal stenosis of lumbosacral spine: Code(s): M48.07 - Spinal stenosis, lumbosacral region Category: Medical Plan Dear colleague, On 05/25/2025, I saw for follow-up Mr. Jarad Aldana. He underwent a lumbar decompression L4-5 in October 2024 for symptoms of neurogenic claudication with the left side is much more involved than the right side. Unfortunately, the surgery did not provide relief despite a repeat MRI showing a adequate decompression of the central canal at L4-5. However, the MRI also shows a left L5 neuroforaminal stenosis. The pain radiates into the left buttock down to the thigh and posterolateral area of the left leg. We had an extensive discussion about the next step. He denies axial low back pain and therefore I would not advise him to undergo a lumbar fusion. The pain continues to be radicular and a left L5 foraminotomy seems to be the most appropriate approach. I did warn him that if this does not help that I do not have any other surgical options for him. He wants to proceed in his tentatively scheduled for 07/18/2025. He will stop his baby aspirin 1 week prior to surgery. I spent 20 minutes in his consult to review imaging and discussing plan of care Thank you for allowing me take care of your patient. Santana Castellanos MD, PhD Spine Fellowship Trained Neurosurgeon Director, [facility] Coding Level of Care Code Est Pt Level 3 (56602) Diagnoses Neuroforaminal stenosis of lumbosacral spine M48.07
[2025-05-25 13:25] VITALS: BMI 22.9
--- OUTSIDE RECORDS SUMMARY | 2025-05-25 14:57 | XMS_ITS | Clinical Summary ---
Author Organization [facility] Address [address] [place] [address] Care Team Providers Care Production Operations Engineer Name Role Phone Carey Mckeon MD Primary Care Provider [phone] Allergies No known active allergies Medications thyroid [...] Health Maintenance Due Date Last Done Comments Advance Care Planning 1940 DTaP/Tdap/Td Vaccines (1 - Tdap) 1961 Pneumococcal Vaccines 50+ (1 of 1 - PCV) 1992 Zoster (Shingles) Vaccine (1 of 2) 1992 RSV Vaccine 50 years and old er and Patients (1 - 1-dose 75+ series) 2017 Influenza Vaccine 03/02/2025 COVID-19 Vaccine ( - 2023-2 5 season) 2025 Colonoscopy (Out of Age Range) 01/19/2029 01/19/2019 Hepatitis B Vaccines Aged Out No long er eligible based on patient's age to complete this topic Insurance MEDICARE PART A & B [facility] Care Teams Production Operations Engineer Relationship Specialty Start Date End Date Carey Mckeon MD [address] [address] PCP - General Internal Medicine 01/18/19
--- OUTSIDE RECORDS SUMMARY | 2025-05-25 14:57 | XMS_ITS | Clinical Summary ---
Author Organization [facility] Address [address] [place] [address] [place] [phone] Phone Care Team Providers Care Production Potter Name Role Phone Carey Mckeon MD Primary Care Provider Allergies Active Allergy Reactions Criticality Noted Date Comments Pollen Extract 02/06/2020 Medications acetaminophen (TYLENOL 8 HOUR) 650 MG 8 hr tablet Take 650 mg by mouth every 8 hours as needed Active alfuzosin (UROXATRAL) 10 MG 24 hr tablet Take 10 mg by mouth 1 (one) time each day in the evening Active aspirin 81 MG chewable tablet Chew 81 mg in the morning. 12/07/2021 Active atorvastatin (LIPITOR) 40 MG tablet Take 40 mg by mouth 1 (one) time each day in the evening 12/06/2021 Active chlorthalidone 25 MG tablet TAKE 1/2 TO 1 TABLET (12.5-25 MG TOTAL) BY MOUTH DAILY 01/19/2025 Active cyanocobalamin (VITAMIN B-12) 100 MCG tablet Take 50 mcg by mouth 1 (one) time each day Active docusate sodium (COLACE) 100 MG capsule Take by mouth 11/23/2024 Active hyoscyamine (LEVSIN) 0.125 MG SL tablet TAKE ONE TABLETS BY MOUTH THREE TIMES A DAY 02/15/2018 Active levothyroxine (SYNTHROID, LEVOTHROID) 137 MCG tablet Take 137 mcg by mouth every morning 07/10/2021 Active losartan (COZAAR) 100 MG tablet Take 100 mg by mouth in the morning. 09/15/2018 Active L-Lysine HCl 500 MG tablet Take 500 mg by mouth in the morning and 500 mg in the evening. Active metoprolol succinate XL (TOPROL XL) 25 MG 24 hr tablet Take 25 mg by mouth in the morning. 02/12/2025 Active naproxen (NAPROSYN) 500 MG tablet Take 500 mg by mouth in the morning and 500 mg in the evening. 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 Encounters Date Type Department Care Team Description 03/01/2025 3:00 PM EDT Office Visit [facility] [address] [place] [address] Meño Child MD Stage 3b chronic kidney disease (HCC) (Primary Dx); Hypertensive disorder from Last 3 Months Immunizations Immunization Administration Dates Next Due Influenza (IM) Preservative Free 06/02/2016 Influenza Split 04/29/2010 Influenza Split High Dose Pr eservative Free IM 05/15/2024,05/12/2021,06/02/2019,06/07,05/16/2015,05/17/2014 Influenza Vaccine, Quadrival ent, Adjuvanted 06/01/2022 Influenza, Quadrivalent, Pre servative Free 04/30/2020 Pfizer SARS-COV-2 11/20/2021,09/28/2020,09/06/19 21 Pneumococcal Polysaccharide 05/16/2015 Shingrix 02/19/2023,09/24/2022 Td, Unspecified 04/26/2007 Tdap 06/11/2017 Social History Tobacco Use Types Packs/Day Years Used Date Smoking Tobacco: Never Assessed Sex and Gender Information Value Date Recorded Sex Assigned at Not on file Legal Sex Male 4:00 PM EDT Gender Identity Not on file Sexual Orientation Not on file Plan of Treatment Health Maintenance Due Date Last Done Comments Pneumococcal Vaccine: 50+ Years (2 of 2 - PCV) 05/16/2016 05/16/2015 Influenza Vaccine (#1) 2025 4, 06/01/2022, 05/12/2021, Additional history exists Hepatitis B Vaccine Aged Out No longe r eligible based on patient's age to complete this topic Insurance Medicare [facility] Care Teams Production Potter Relationship Specialty Start Date End Date Carey Mckeon MD [address] [place] [address] [address] [place] [address] PCP - General Internal Medicine 12/27/24
--- OUTSIDE RECORDS SUMMARY | 2025-05-25 14:57 | XMS_ITS | Encounter Summary ---
Author Organization [facility] Address [address] [place] [address] Phone Care Team Providers Care Veneer Trimmer Name Role Phone Carey Mckeon MD Primary Care Provider Encounter Details Date Type Department Care Team (Late st Contact Info) Description 12/27/2024 Documentation Only [facility], [address] [place] [phone] [place], [place] [address] [place] [phone] Social History Tobacco Use Types Packs/Day Years Used Date Smoking Tobacco: Never Assessed Sex and Gender Information Value Date Recorded Sex Assigned at Not on file Legal Sex Male 4:00 PM EDT Gender Identity Not on file Sexual Orientation Not on file documented as of this encounter Plan of Treatment Not on file documented as of this encounter Visit Diagnoses Not on filedocumented in this encounter Care Teams Veneer Trimmer Relationship Specialty Start Date End Date Carey Mckeon MD [address] [place] [address] [address] [place] [address] PCP - General Internal Medicine 12/27/24 documented as of this encounter
== END 2025-05-25 13:59 | disposition home or self-care (01) ==
LOC: HO.HNS 12:58
PROVIDERS: PCP Internal Medicine; Visit Provider Neurological Surgery
DX: M48.07 Spinal stenosis, lumbosacral region (principal)
CPT/HCPCS: 99213

== ENCOUNTER → 2025-05-25 12:57 | Outpatient (BNVA) | payer MEDICARE, SELFPAY | PROVIDERS: PCP Internal Medicine; Visit Provider Neurological Surgery | DX: M48.07 Spinal stenosis, lumbosacral region (principal); Z79.82 Long term (current) use of aspirin | CPT/HCPCS: 99212 ==

== ENCOUNTER 2025-07-18 06:51 | Day surgery (SDC) | payer MEDICARE, SELFPAY ==
--- OUTSIDE RECORDS SUMMARY | 2025-06-26 16:44 | XMS_ITS | Encounter Summary ---
Author Organization [facility] Address [address] [place] [address] Phone Care Team Providers Care Bowling Ball Finisher Name Role Phone Ed Hunt MD Unavailable Sandra Martínez CRUSHER SCREEN REPAIRER Unavailable Brodie Multani MD Unavailable [phone] Carey Mckeon MD Unavailable [phone] Main Sanchez MD Unavailable Unavailable KymberlyLarry dela cruz MD Unavailable [phone] Carey Mckeon MD Primary Care Provider Carey Mckeon MD Unavailable [phone] Jean Boone MD Unavailable [phone] Encounter Details Date Type Department Care Team (Late st Contact Info) Description 02/21/2020 Transcribe Orders [facility] [address] [place] [address] Carey Mckeon MD [address] [place] [address] [place] [phone] [email or web address] Chronic obstructive pulmonary disease, unspecified COPD type (Primary Dx) Social History Tobacco Use Types Packs/Day Years Used Date Smoking Tobacco: Former Smokeless Tobacco: Former Alcohol Use Standard Drinks/Week Comments No 0 (1 standard drink = 0.6 oz pur e alcohol) Sex and Gender Information Value Date Recorded Sex Assigned at Male 09/03/2021 11:07 AM EST Legal Sex Male 10:11 PM EDT Gender Identity Male 09/03/2021 11:07 AM EST Sexual Orientation Straight 09/03/2021 11 :07 AM EST documented as of this encounter Plan of Treatment Upcoming Encounters Date Type Department Care Team (Late st Contact Info) Description 07/04/2025 9:40 AM EST Office Visit [facility] 14 [facility] [address] [place] [address] Carey Mckeon MD 14 [facility] [address] [place] [address] 08/24/2025 7:45 AM EST Appointment [facility] [address] [place] [address] Shimon Prince MD [address] [place] [phone] [email or web address] 11/26/2025 11:20 AM EDT Office Visit [facility] [address] [address] Carey Mckeon MD [address] [place] [address] 12/25/2025 11:40 AM EDT Office Visit [facility] at [address] [address] Jean Boone MD [address] [place] [phone] documented as of this encounter Results * Pulmonary Function Test Reason for Exam: COPD; Performing Location: [facility] (03/01/2020 8:44 AM EDT) FEV1 FVC FEV1/FVC TLC DLCO Anatomical Region Laterality Modality Other Impressions 03/01/2020 8:44 AM EDT 6-MINUTE DISTANCE WALK A standard 6-minute distance walk was performed according to ATS criteria on this 79 y.o. year-old male for evaluation of COPD with the patient breathing room air. At rest, the oxygen saturation was 98% with a heart rate of 74 bpm. During ambulation, the oxygen saturation reached a christos of 90%, the heart rate increased physiologically to a maximum of 103 bpm and the respiratory dyspnea index reached a maximum of 6 on a scale from 0 to 10. After one minute of recovery, the oxygen saturation was 100%, the hear rate was 83 bpm and the respiratory dyspnea index was 5. The patient ambulated 1380 feet or 420 meters, which is mildly impaired. The patient reported back pain during the study. IMPRESSION: Abnormal 6-minute distance walk study as evidenced by a mildly impaired walk distance, ambulatory desaturations down to 90% on room air, a physiologic increase in heart rate with exercise and an increase in the respiratory dyspnea index with exercise. us Carey Mckeon MD PFT ORDERABLES Final Result documented in this encounter Visit Diagnoses Diagnosis Chronic obstructive pulmonary disease, unspecified COPD type- Primary Chronic obstructive pulmonary disease, unspecified COPD type documented in this encounter Additional Health Concerns Infection Onset Date Last Indicated Resolved Time CoV-Exposed Comment:Recent close contact documented in the COVID-19 Amb Triage Form 10/14/2021 10/16/2021 10/25/2021 1:22 AM E DT CoV-Risk Comment:Per Ambulatory Triage Form 10/17/2021 10/17/202110/28 1:21 AM EDT CoV-Presumed 12/14/2021 12/14/2021 01/04/2022 1:22 AM EDT documented as of this encounter Care Teams Bowling Ball Finisher Relationship Specialty Start Date End Date Carey Mckeon MD [address] [place] [address] [address] [place] [address] PCP - General 08/05/17 Ed Hunt MD [address] [place] [address], [facility] [address] [place] [address] Historical LMR Provider 05/17/17 08/09/21 NayeligiSandra, JABARI [address] [place] [address] Historical LMR Provider 05/17/17 Brodie Multani MD [address] [address] Historical LMR Provider 05/17/17 08/09/21 Carey Mckeon MD [address] [place] [address] Historical LMR Provider 05/17/17 Main Sanchez MD Historical LMR Provider 05/17/17 08/09/21 Larry Traylor MD [address] [place] [address] Historical LMR Provider 05/17/17 Carey Mckeon MD [address] [place] [address] Insurance Assigned Provider 11/06/23 Jean Boone MD [address] [place] [phone] Medical Oncology 11/15/24 documented as of this encounter Additional Source Comments The information contained in this document represents components of the legal health record. It is not the complete legal health record.[facility]
--- OUTSIDE RECORDS SUMMARY | 2025-06-26 16:44 | XMS_ITS | Encounter Summary ---
Author Organization [facility] Address [address] [place] [address] Phone Care Team Providers Care Torts Law Professor Name Role Phone Ed Hunt MD Unavailable [phone] Sandra Martínez GELATIN PLANT SUPERVISOR Unavailable [phone] Brodie Multani MD Unavailable [phone] Carey Mckeon MD Unavailable [phone] Main Sanchez MD Unavailable Unavailable KymberlyLarry dela cruz MD Unavailable [phone] Carey Mckeon MD Primary Care Provider [phone] Carey Mckeon MD Unavailable [phone] Jean Boone MD Unavailable [phone] Reason for Referral * MRI/CAT Scan - Closed Specialty Diagnoses / Procedures Referred By Contac t Referred To Contact Radiology Diagnoses Spinal stenosis of lumbar region, unspecified whether neurogenic claudication present Pain of left hip Procedures MRI Lumbar Spine MRI Lumbar Spine Charisma Ruiz PA Phone: tel: fax: [email or web address] Referral ID Status Reason Start Date Expiration Date Visits Re quested Visits Authorized [id number] Closed 05/13/2020 05/13/2021 1 1 Encounter Details Date Type Department Care Team (Latest Contact Info) Description 05/13/2020 Ancillary Orders [facility] Department [address] [place] [address] Charisma Ruiz PA [address] [place] [address] [email or web address] Spinal stenosis of lumbar region, unspecified whether neurogenic claudication present; Pain of left hip Social History Tobacco Use Types Packs/Day Years [...] Description 07/04/2025 9:40 AM EST Office Visit [facility] Internal Medicine [address] [address] Carey cMkeon MD [address] [place] [address] 08/24/2025 7:45 AM EST Appointment [facility] [address] [place] [address] Shimon Prince MD [address] [place] [address] [email or web address] 11/26/2025 11:20 AM EDT Office Visit [facility] Internal Medicine [address] [address] Carey Mckeon MD [address] [address] 12/25/2025 11:40 AM EDT Office Visit [facility] at [address] [address] Jean Boone MD [address] [place] [address] [email or web address] documented as of this encounter Results * MRI LUMBAR SPINE (NEURO) WITHOUT CONTRAST (05/17/2020 3:34 PM EDT) Anatomical Region Laterality Modality L-spine Magnetic Resonan ce 05/17/2020 3:49 PM EDT Impressions 05/17/2020 3:54 PM EDT 1. Small right paramedian focal disc protrusion at L2-3 displacing the emerging right nerve root. 2. Bilateral foraminal disc bulge at L3-4 without clear HNP. No root compression or significant stenosis. 3. Mild central and moderate bilateral foraminal stenosis at L4-5. POS [id number] Narrative 05/17/2020 3:54 PM EDT TECHNIQUE: Nonenhanced exam No comparison FINDINGS: Mild to moderate levoscoliosis. No spondylolisthesis. No worrisome marrow changes. Normal conus position and appearance T11-L1: No disc bulge or protrusion or stenosis L1-2: Very minimal broad disc bulge but no focal protrusion or stenosis L2-3: Mild broad disc bulge but there is also a focal right paramedian protrusion deforming the thecal sac and displacing the emerging right nerve root. No significant stenosis. L3-4: Moderate broad disc bulge without focal protrusion but more conspicuous in both exit foramina. No root compression or significant stenosis despite moderate facet and ligamentous hypertrophy. L4-5: Prominent broad, concentric disc bulge without focal protrusion. Ridgelike endplate spurs and posterior hypertrophy result in a trefoil shaped canal with only mild central stenosis and moderate bilateral foraminal narrowing. L5-S1: Minimal broad disc bulge without focal protrusion. No stenosis Procedure Note Edu Baldwin MD - 05/17/2020 TECHNIQUE: Nonenhanced exam No comparison FINDINGS: Mild to moderate levoscoliosis. No spondylolisthesis. No worrisome marrowchanges. Normal conus position and appearance T11-L1: No disc bulge or protrusion or stenosis L1-2: Very minimal broad disc bulge but no focal protrusion or stenosis L2-3: Mild broad disc bulge but there is also a focal right paramedianprotrusion deforming the thecal sac and displacing the emerging rightnerve root. No significant stenosis. L3-4: Moderate broad disc bulge without focal protrusion but moreconspicuous in both exit foramina. No root compression or significantstenosis despite moderate facet and ligamentous hypertrophy. L4-5: Prominent broad, concentric disc bulge without focal protrusion.Ridgelike endplate spurs and posterior hypertrophy result in a trefoilshaped canal with only mild central stenosis and moderate bilateralforaminal narrowing. L5-S1: Minimal broad disc bulge without focal protrusion. No stenosis IMPRESSION: 1. Small right paramedian focal disc protrusion at L2-3 displacing theemerging right nerve root. 2. Bilateral foraminal disc bulge at L3-4 without clear HNP. No rootcompression or significant stenosis. 3. Mild central and moderate bilateral foraminal stenosis at L4-5. POS [id number] Charisma [facility] [place] XSPECIALTY Final Res ult documented in this encounter Visit Diagnoses Diagnosis Spinal stenosis of lumbar region, unspecified whether neurogenic claudication present Pain of left hip Spinal stenosis of lumbar region, unspecified whether neurogenic claudication present Pain of left hip documented in this encounter Additional Health Concerns Infection Onset Date Last Indicated Resolved Time CoV-Exposed Comment:Recent close contact documented in the COVID-19 Amb Triage Form 10/14/2021 10/16/2021 10/25/2021 1:22 AM E DT CoV-Risk Comment:Per Ambulatory Triage Form 10/17/2021 10/17/202110/28 1:21 AM EDT CoV-Presumed 12/14/2021 12/14/2021 01/04/2022 1:22 AM EDT documented as of this encounter Care Teams Torts Law Professor Relationship Specialty Start Date End Date Carey Mckeon MD [address] [place] [address] [place] [address] PCP - General 08/05/17 Ed Hunt MD [address] [place] [address], [address] [place] [address] Historical LMR Provider 05/17/17 08/09/21 Sandra Martínez, GELATIN PLANT SUPERVISOR [address] [place] [address] Historical LMR Provider 05/17/17 Brodie Multani MD [address] [place] [address], 2nd [place] [address] Historical LMR Provider 05/17/17 08/09/21 Carey Mckeon MD [address] [place] [address] Historical LMR Provider 05/17/17 Main Sanchez MD Historical LMR Provider 05/17/17 08/09/21 Larry Traylor MD [address] [place] [address] Historical LMR Provider 05/17/17 Carey Mckeon MD [address] [place] [address] Insurance Assigned Provider 11/06/23 Jean Boone MD [address] [place] [address] Medical Oncology 11/15/24 documented as of this encounter Additional Source Comments The information contained in this document represents components of the legal health record. It is not the complete legal health record.[facility]
--- OUTSIDE RECORDS SUMMARY | 2025-06-26 16:44 | XMS_ITS | Encounter Summary ---
Author Organization [facility] Address [address] [place] [address] Phone Care Team Providers Care Manager Of Digital Name Role Phone Sandra Martínez PEOPLESOFT HCM DEVELOPER Unavailable [phone] Carey Mckeon MD Unavailable [phone] Carey Mckeon MD Primary Care Provider + [phone] Carey Mckeon MD Unavailable [phone] Jean Boone MD Unavailable [phone] Encounter Details Date Type Department Care Team (Late st Contact Info) Description 12/05/2021 Procedure Pass [facility], [address] [address] Social History Tobacco Use Types Packs/Day Years Used Date Smoking Tobacco: Former Cigarettes Q uit: 1991 Smokeless Tobacco: Former Alcohol Use Standard Drinks/Week Comments No 0 (1 standard drink = 0.6 oz pur e alcohol) Sex and Gender Information Value Date Recorded Sex Assigned at Male 09/03/2021 11:07 AM EST Legal Sex Male 10:11 PM EDT Gender Identity Male 09/03/2021 11:07 AM EST Sexual Orientation Straight 09/03/2021 11 :07 AM EST documented as of this encounter Functional Status * Calculated C-SSRS Risk Score (Lifetime/Recent) Answer Date of Assessment Author No Risk Indicated 12/05/2021 2:09 PM EDT Pam Blanco, RN * Major Suicide Severity Rating Scale (Screener/Recent Self-Report) Question Answer Date of Assessment Author 1. Wish to be (Past 1 Month) No 022 2:09 PM EDT Pam Blanco RN 2. Non-Specific Active Suici anca Thoughts (Past 1 Month) No 12/05/2021 2:09 PM EDT Pam Blanco, KATHY 6. Suicidal Behavior (Lifetime) No 2:09 PM EDT Pam Blanco, RN documented as of this encounter Plan of Treatment Upcoming Encounters Date Type Department Care Team (Late st Contact Info) Description 07/04/2025 9:40 AM EST Office Visit [facility] Internal Medicine 14 [facility] [address] [place] [address] Carey Mckeon MD [address] [address] 08/24/2025 7:45 AM EST Appointment [facility] [place] [address] [place] [address] 3rd [place] [address] Shimon Prince MD [address] [place] [address] [email or web address] 11/26/2025 11:20 AM EDT Office Visit [facility] Internal Medicine [address] [address] Carey Mckeon MD [address] [address] 12/25/2025 11:40 AM EDT Office Visit [facility] at [address] [address] Jean Boone MD [address] [place] [address] documented as of this encounter Visit Diagnoses Not on filedocumented in this encounter Additional Health Concerns Infection Onset Date Last Indicated Resolved Time CoV-Presumed 12/14/2021 12/14/2021 01/04/2022 1:22 AM EDT documented as of this encounter Care Teams Manager Of Digital Relationship Specialty Start Date End Date Carey Mckeon MD [address] [place] [address] PCP - General 08/05/17 Sandra Martínez, PEOPLESOFT HCM DEVELOPER [address] [place] [address] Historical LMR Provider 05/17/17 Carey Mckeon MD [address] [place] [address] Historical LMR Provider 05/17/17 Carey Mckeon MD [address] [place] [address] Insurance Assigned Provider 11/06/23 Jean Boone MD [address] [place] [address] Medical Oncology 11/15/24 documented as of this encounter Additional Source Comments The information contained in this document represents components of the legal health record. It is not the complete legal health record.[facility]
--- OUTSIDE RECORDS SUMMARY | 2025-06-26 16:44 | XMS_ITS | Encounter Summary ---
Author Organization [facility] Address [address] [place] [address] Phone Care Team Providers Care Physiology Teacher Name Role Phone Sandra Martínez ARCHITECTURE CONSULTANT Unavailable [phone] Carey Mckeon MD Unavailable [phone] Carey Mckeon MD Primary Care Provider + [phone] Carey Mckeon MD Unavailable [phone] Jean Boone MD Unavailable [phone] Encounter Details Date Type Department Care Team (Late st Contact Info) Description 09/04/2021 Procedure Pass [facility], Ct Scan - [address] [address] Social History Tobacco Use Types Packs/Day Years [...] Description 07/04/2025 9:40 AM EST Office Visit [facility] Internal Medicine 14 [facility] [address] [place], [place] [phone] Carey Mckeon MD 14 [facility] [address] [place], [place] [phone] 08/24/2025 7:45 AM EST Appointment [facility] [place] [address] 3rd [place] [address] Shimon Prince MD [address] [place] [address] [email or web address] 11/26/2025 11:20 AM EDT Office Visit [facility] Internal Medicine 14 [facility] [address] [place] [address] Carey Mckeon MD 14 [facility] [address] [place] [address] 12/25/2025 11:40 AM EDT Office Visit [facility] [address] [place] [address] Jean Boone MD [address] [place] [address] documented as of this encounter Visit Diagnoses [...] documented as of this encounter Care Teams Physiology Teacher Relationship Specialty Start Date End Date Carey Mckeon MD 14 [facility] [address] [place] [address] PCP - General 08/05/17 Sandra Martínez, JABARI 14 [facility] [address] [place] [address] [email or web address] Historical LMR Provider 05/17/17 Carey Mckeon MD [address] [place] [address] [email or web address] Historical LMR Provider 05/17/17 Carey Mckeon MD [address] [place] [address] [email or web address] Insurance Assigned Provider 11/06/23 Jean Boone MD [address] [place] [address] [email or web address] Medical Oncology 11/15/24 documented as of this encounter Additional Source Comments The information contained in this document represents components of the legal health record. It is not the complete legal health record.[facility]
--- OUTSIDE RECORDS SUMMARY | 2025-06-26 16:44 | XMS_ITS | Clinical Summary ---
Author Organization [facility] Address [address] [place] [address] Care Team Providers Care Manufacturing Teacher Name Role Phone Carey Mckeon MD Primary Care Provider [phone] Allergies No known active allergies Medications thyroid [...] topic Insurance MEDICARE PART A [facility] B [facility] Care Teams Manufacturing Teacher Relationship Specialty Start Date End Date Carey Mckeon MD [address] [address] PCP - General Internal Medicine 01/18/19
--- OUTSIDE RECORDS SUMMARY | 2025-06-26 16:44 | XMS_ITS | Encounter Summary ---
Author Organization [facility] Address [address] [place] [address] Phone Care Team Providers Care Squeegeer And Former Name Role Phone Ed Hunt MD Unavailable [phone] Sandra Martínez GERM DRIER Unavailable Brodie Multani MD Unavailable Carey Mckeon MD Unavailable Main Sanchez MD Unavailable Unavailable KymberlyLarry dela cruz MD Unavailable [phone] Carey Mckeon MD Primary Care Provider [phone] Carey Mckeon MD Unavailable Jean Boone MD Unavailable [phone] Encounter Details Date Type Department Care Team (Latest Contact Info) Description 05/13/2020 Ancillary Orders Virtual Department [address] [place] [address] Charisma Riuz, KINZA [address] [place] [address] [email or web address] Spinal stenosis of lumbar region, unspecified whether neurogenic claudication present Social History Tobacco Use Types Packs/Day Years [...] 9:40 AM EST Office Visit [facility] Internal Medicine 14 [facility] [address] [place] [address] Carey Mckeon MD 14 [facility] [address] [place] [address] 08/24/2025 7:45 AM EST Appointment [facility] [address] 3rd [place] [address] Shimon Prince MD [address] [place] [address] [email or web address] 11/26/2025 11:20 AM EDT Office Visit [facility] Internal Medicine 14 [facility] [address] [place] [address] Carey Mckeon MD 14 [facility] [address] [place] [address] 12/25/2025 11:40 AM EDT Office Visit [facility] [address] [place] [address] Jean Boone MD [address] [place] [address] documented as of this encounter Visit Diagnoses Diagnosis Spinal stenosis of lumbar region, unspecified whether neurogenic claudication present documented in this encounter Additional Health Concerns Infection Onset Date Last Indicated Resolved Time CoV-Exposed Comment:Recent close contact documented in the COVID-19 Amb Triage Form 10/14/2021 10/16/2021 10/25/2021 1:22 AM E DT CoV-Risk Comment:Per Ambulatory Triage Form 10/17/2021 10/17/202110/28 1:21 AM EDT CoV-Presumed 12/14/2021 12/14/2021 01/04/2022 1:22 AM EDT documented as of this encounter Care Teams Squeegeer And Former Relationship Specialty Start Date End Date Carey Mckeon MD [address] [place] [address] PCP - General 08/05/17 Ed Hunt MD [address] [place] [address], [address] [place] [address] Historical LMR Provider 05/17/17 08/09/21 Sandra Martínez CNP [address] [place] [address] Historical LMR Provider 05/17/17 Brodie Multani MD [address] [place] [address], 2nd [place] [address] Historical LMR Provider 05/17/17 08/09/21 Carey Mckeon MD [address] [place] [address] Historical LMR Provider 05/17/17 Main Sanchez MD Historical LMR Provider 05/17/17 08/09/21 Larry Traylor MD [address] [place] [address] Historical LMR Provider 05/17/17 Carey Mckeon MD [address] [place] [address] [email or web address] Insurance Assigned Provider 11/06/23 Jean Boone MD [address] [place] [address] [email or web address] Medical Oncology 11/15/24 documented as of this encounter Additional Source Comments The information contained in this document represents components of the legal health record. It is not the complete legal health record.[facility]
--- OUTSIDE RECORDS SUMMARY | 2025-06-26 16:44 | XMS_ITS | Encounter Summary ---
Author Organization [facility] Address [address] [place] [address] Phone Care Team Providers Care Hog Room Supervisor Name Role Phone Ed Hunt MD Unavailable Sandra Martínez ASSEMBLY MACHINE OPERATOR Unavailable [phone] Brodie Multani MD Unavailable Carey Mckeon MD Unavailable Main Sanchez MD Unavailable Unavailable Larry Traylor MD Unavailable [phone] Carey Mckeon MD Primary Care Provider [phone] Carey Mckeon MD Unavailable [phone] Jean Boone MD Unavailable [phone] Encounter Details Date Type Department Care Team (Late st Contact Info) Description 05/13/2020 Procedure Pass [address] [place] [address] Social History Tobacco Use Types Packs/Day Years [...] AM EST documented as of this encounter Last Filed Vital Signs Vital Sign Reading Time Taken Comments Blood Pressure - - Pulse - - Temperature - - Respiratory Rate - - Oxygen Saturation - - Inhaled Oxygen Concentration - - Weight 72.6 kg (160 lb) 05/13/2020 7:08 PM EDT Height 177.8 cm (5' 10 ) 05/13/2020 7:08 PM EDT Body Mass Index 22.96 05/13/2020 7:08 PM EDT documented in this encounter Plan of Treatment Upcoming Encounters Date Type Department Care Team (Late st Contact Info) Description 07/04/2025 9:40 AM EST Office Visit [facility] Internal Medicine 14 [facility] [address] [place] [address] Carey Mckeon MD 14 [facility] [address] [place] [address] [email or web address] 08/24/2025 7:45 AM EST Appointment [facility] [address] [place] [address] Shimon Prince MD [address] [place] [address] [email or web address] 11/26/2025 11:20 AM EDT Office Visit [facility] Internal Medicine 14 [facility] [address] [place] [address] Carey Mckeon MD [address] [address] 12/25/2025 11:40 AM EDT Office Visit [facility] at [address] [address] Jean Boone MD [address] [place] [address] documented as of this encounter Visit Diagnoses [...] documented as of this encounter Care Teams Hog Room Supervisor Relationship Specialty Start Date End Date Carey Mckeon MD [address] [place] [address] [place] [address] PCP - General 08/05/17 Ed Hunt MD [address] [place] [address], [address] [place] [address] Historical LMR Provider 05/17/17 08/09/21 Sandra Martínez CNP [address] [place] [address] Historical LMR Provider 05/17/17 Brodie Multani MD [address] [place] [address], 2nd [place] [address] Historical LMR Provider 05/17/17 08/09/21 Carey Mckeon MD [address] [place] [address] [place] [address] Historical LMR Provider 05/17/17 Main Sanchez MD Historical LMR Provider 05/17/17 08/09/21 Larry Traylor MD [address] [place] [address] Historical LMR Provider 05/17/17 Carey Mckeon MD 14 [facility] [address] [place] [address] [email or web address] Insurance Assigned Provider 11/06/23 Jean Boone MD 30 [place] [address] [email or web address] Medical Oncology 11/15/24 documented as of this encounter Additional Source Comments The information contained in this document represents components of the legal health record. It is not the complete legal health record.[facility]
--- OUTSIDE RECORDS SUMMARY | 2025-06-26 16:44 | XMS_ITS | Encounter Summary ---
Author Organization [facility] Address [address] [place] [address] Phone Care Team Providers Care Clerical Proofreader Name Role Phone Sandra Martínez FILM PROCESS OPERATOR Unavailable [phone] Carey Mckeon MD Unavailable [phone] Carey Mckeon MD Primary Care Provider + [phone] Carey Mckeon MD Unavailable [phone] Jean Boone MD Unavailable [phone] Encounter Details Date Type Department Care Team (Late st Contact Info) Description 12/05/2021 Procedure Pass [facility], [address] [address] Social History Tobacco Use Types Packs/Day Years [...] 2:09 PM EDT Pam Blanco, RN * [place] Suicide Severity Rating Scale (Screener/Recent Self-Report) Question [...] Description 07/04/2025 9:40 AM EST Office Visit [facility] Internal Medicine [address] [facility] [address] [place] [address] Carey Mckeon MD [address] [address] 08/24/2025 7:45 AM EST Appointment [facility] [place] [address] [place] [address] 3rd [place] [address] Shimon Prince MD [address] [place] [address] [email or web address] 11/26/2025 11:20 AM EDT Office Visit [facility] Internal Medicine [address] [address] Carey Mckeon MD [address] [address] 12/25/2025 11:40 AM EDT Office Visit [facility] at [address] [address] Jean Boone MD [address] [place] [address] documented as of this encounter Visit Diagnoses Not on filedocumented in this encounter Additional Health Concerns Infection Onset Date Last Indicated Resolved Time CoV-Presumed 12/14/2021 12/14/2021 01/04/2022 1:22 AM EDT documented as of this encounter Care Teams Clerical Proofreader Relationship Specialty Start Date End Date Carey Mckeon MD [address] [place] [address] PCP - General 08/05/17 Sandra Martínez, FILM PROCESS OPERATOR [address] [place] [address] Historical LMR Provider 05/17/17 Carey Mckeon MD [address] [place] [address] Historical LMR Provider 05/17/17 Carey Mckeon MD [address] [place] [address] Insurance Assigned Provider 11/06/23 Jean Boone MD [address] [place] [address] Medical Oncology 11/15/24 documented as of this encounter Additional Source Comments The information contained in this document represents components of the legal health record. It is not the complete legal health record.[facility]
--- OUTSIDE RECORDS SUMMARY | 2025-06-26 16:45 | XMS_ITS | Encounter Summary ---
Author Organization [facility] Address [address] [place] [address] Phone Care Team Providers Care Junior Qa Analyst Name Role Phone Ed Hunt MD Unavailable [phone] Sandra Martínez [facility] Unavailable Brodie Multani MD Unavailable [phone] Carey Mckeon MD Unavailable [phone] Main Sanchez MD Unavailable Unavailable Larry Traylor MD Unavailable [phone] Carey Mckeon MD Primary Care Provider [phone] Carey Mckeon MD Unavailable [phone] Jean Boone MD Unavailable [phone] Reason for Referral * MRI/CAT Scan - Closed Specialty Diagnoses / Procedures Referred By Contac t Referred To Contact Radiology Diagnoses Impingement syndrome of shoulder region, left Procedures MRI Shoulder (Left) Agustin David MD Phone: tel: fax: mailto:[email or web address] Referral ID Status Reason Start Date Expiration Date Visits Re quested Visits Authorized [id number] Closed 06/21/2019 06/20/2020 1 1 Encounter Details Date Type Department Care Team (Late st Contact Info) Description 06/21/2019 Ancillary Orders [facility] Department [address] [place] [address] Agustin David MD [address] [place] [address] [email or web address] Impingement syndrome of shoulder region, left Social History Tobacco Use Types Packs/Day Years [...] Description 07/04/2025 9:40 AM EST Office Visit [facility] Internal Medicine [address] [place] [address] Carey Mckeon MD [address] [place] [address] 08/24/2025 7:45 AM EST Appointment [facility] [address] [place] [address] Shimon Prince MD [address] [place] [address] [email or web address] 11/26/2025 11:20 AM EDT Office Visit [facility] Internal Medicine [address] [address] Carey Mckeon MD [address] [place] [address] 12/25/2025 11:40 AM EDT Office Visit [facility] at [address] [address] Jean Boone MD [address] [place] [address] [email or web address] documented as of this encounter Results * MRI SHOULDER WITHOUT CONTRAST (LEFT) (06/24/2019 4:29 PM EST) Anatomical Region Laterality Modality Shoulder Left Magnetic Resonan ce 06/26/2019 2:28 PM EST Impressions 06/26/2019 2:33 PM EST 1. Distal supraspinatus and infraspinatus tendon partial tears. 2. Mild AC joint osteoarthritis. POS - [id number] Narrative 06/26/2019 2:33 PM EST HISTORY: Impingement syndrome of shoulder region, left COMPARISON: Left shoulder radiograph 01/18/2018. TECHNIQUE: Exam performed on a 1.5 Anitha high-field MRI scanner. Axial T1 and proton density with fat suppression, oblique coronal proton density with fat suppression and T2 with fat suppression, oblique sagittal T1 and T2 with fat suppression sequences were obtained. MRI LEFT SHOULDER FINDINGS: Acromion: No os acromiale. Type I acromion. No anterior or lateral downsloping. Rotator cuff muscle/tendon: Intermediate signal intensity in the supraspinatus and infraspinous tendons representing tendinopathy. Focal linear fluid signal intensity in the bursal surfaces of the distal supraspinatus and infraspinatus tendons as well as increased T2 signal in the musculotendinous junction of the supraspinatus tendon representing partial- thickness tears. Subscapularis tendon is intact. No rotator cuff muscle edema or atrophy. Labrum/biceps tendon: No labral or biceps tendon tear. Bone marrow/joint: Mild acromioclavicular joint osteoarthritis with mild joint space narrowing, subchondral edema and small degenerative cysts. No suspicious bone lesions. Glenohumeral joint space is maintained. No malalignment. No joint effusion. Trace fluid in the subacromial subdeltoid bursa. No fluid in the subcoracoid bursa. No suprascapular or spinoglenoid notch mass. Procedure Note Prabhjot Tyler MD - 06/26/2019 HISTORY: Impingement syndrome of shoulder region, left COMPARISON: Left shoulder radiograph 01/18/2018. TECHNIQUE: Exam performed on a 1.5 Anitha high-field MRI scanner. Axial T1and proton density with fat suppression, oblique coronal proton densitywith fat suppression and T2 with fat suppression, oblique sagittal T1 andT2 with fat suppression sequences were obtained. MRI LEFT SHOULDER FINDINGS: Acromion: No os acromiale. Type I acromion. No anterior or lateraldownsloping. Rotator cuff muscle/tendon: Intermediate signal intensity in thesupraspinatus and infraspinous tendons representing tendinopathy. Focallinear fluid signal intensity in the bursal surfaces of the distalsupraspinatus and infraspinatus tendons as well as increased T2 signal inthe musculotendinous junction of the supraspinatus tendon representingpartial-thickness tears. Subscapularis tendon is intact. No rotator cuffmuscle edema or atrophy. Labrum/biceps tendon: No labral or biceps tendon tear. Bone marrow/joint: Mild acromioclavicular joint osteoarthritis with mildjoint space narrowing, subchondral edema and small degenerative cysts. Nosuspicious bone lesions. Glenohumeral joint space is maintained. Nomalalignment. No joint effusion. Trace fluid in the subacromialsubdeltoid bursa. No fluid in the subcoracoid bursa. No suprascapular orspinoglenoid notch mass. IMPRESSION: 1. Distal supraspinatus and infraspinatus tendon partial tears. 2. Mild AC joint osteoarthritis. POS - [id number] Agustin David MD IMG MR EXTREMITY Final Result documented in this encounter Visit Diagnoses Diagnosis Impingement syndrome of shoulder region, left Impingement syndrome of shoulder region, left documented in this encounter Additional Health Concerns Infection Onset Date Last Indicated Resolved Time CoV-Exposed Comment:Recent close contact documented in the COVID-19 Amb Triage Form 10/14/2021 10/16/2021 10/25/2021 1:22 AM E DT CoV-Risk Comment:Per Ambulatory Triage Form 10/17/2021 10/17/202110/28 1:21 AM EDT CoV-Presumed 12/14/2021 12/14/2021 01/04/2022 1:22 AM EDT documented as of this encounter Care Teams Junior Qa Analyst Relationship Specialty Start Date End Date Carey Mckeon MD [address] [place] [address] PCP - General 08/05/17 Ed Hunt MD [address] [place] [address], [address] [place] [address] Historical LMR Provider 05/17/17 08/09/21 Sandra Martínez CNP [address] [place] [address] Historical LMR Provider 05/17/17 Brodie Multani MD [address] [place] [address], [address] [place] [address] Historical LMR Provider 05/17/17 08/09/21 Carey Mckeon MD [address] [place] [address] Historical LMR Provider 05/17/17 Main Sanchez MD Historical LMR Provider 05/17/17 08/09/21 Larry Traylor MD [address] [place] [address] Historical LMR Provider 05/17/17 Carey Mckeon MD [address] [place] [address] [email or web address] Insurance Assigned Provider 11/06/23 Jean Boone MD [address] [place] [address] [email or web address] Medical Oncology 11/15/24 documented as of this encounter Additional Source Comments The information contained in this document represents components of the legal health record. It is not the complete legal health record.[facility]
--- OUTSIDE RECORDS SUMMARY | 2025-06-26 16:45 | XMS_ITS | Encounter Summary ---
Author Organization [facility] Address [address] [place] [address] Phone Care Team Providers Care Radio Division Lieutenant Name Role Phone Sandra Martínez INTERIOR DESIGN PROGRAM CHAIR Unavailable + [phone] Carey Mckeon MD Unavailable [phone] Carey Mckeon MD Primary Care Provider [phone] Carey Mckeon MD Unavailable [phone] Jean Booen MD Unavailable [phone] Encounter Details Date Type Department Care Team (Late st Contact Info) Description 08/14/2022 Procedure Pass OR Admitting Dept - Virtual Department [address] [place] [address] [phone] Social History Tobacco Use Types Packs/Day Years [...] Encounters Date Type Department Care Team (Late Contact Info) Description 07/04/2025 9:40 AM EST Office Visit [facility] [place] [facility] 14 [facility] [address] [place] [address] Carey Mckeon MD 14 [facility] [address] [place], [place] [phone] 08/24/2025 7:45 AM EST Appointment [facility] 3[facility] [place] [address] Shimon Prince MD [address] [place] [address] [email or web address] 11/26/2025 11:20 AM EDT Office Visit [facility] Internal Medicine [address] [address] Carey Mckeon MD [address] [place] [address] 12/25/2025 11:40 AM EDT Office Visit [facility] at [facility] 30 [place] [address] Jean Boone MD 30 [place] [address] documented as of this encounter Visit Diagnoses Not on filedocumented in this encounter Additional Health Concerns Assessment Noted Time PHQ-2 Depression Total Score: 0 07/20/20 22 2:08 PM EST documented as of this encounter Care Teams Radio Division Lieutenant Relationship Specialty Start Date End Date Carey Mckeon MD [address] [address] PCP - General 08/05/17 Sandra Martínez CNP [address] [address] Historical LMR Provider 05/17/17 Carey Mckeon MD [address] [place], [place] [address] [place] [address] [email or web address] Historical LMR Provider 05/17/17 Carey Mckeon MD [address] [place] [address] [address] [place] [address] [email or web address] Insurance Assigned Provider 11/06/23 Jean Boone MD [address] [place] [address] [email or web address] Medical Oncology 11/15/24 documented as of this encounter Additional Source Comments The information contained in this document represents components of the legal health record. It is not the complete legal health record.[facility]
--- OUTSIDE RECORDS SUMMARY | 2025-06-26 16:45 | XMS_ITS | Encounter Summary ---
Author Organization [facility] Address [address] [place] [address] Phone Care Team Providers Care Mitochondrial Disorders Counselor Name Role Phone Sandra Martínez OFFBEARER SEWER PIPE Unavailable + [phone] Carey Mckeon MD Unavailable [phone] Carey Mckeon MD Primary Care Provider [phone] Carey Mckeon MD Unavailable [phone] Jean Boone MD Unavailable [phone] Encounter Details Date Type Department Care Team (Late st Contact Info) Description 10/07/2021 Procedure Pass [facility] Ct Scan - [address] [address] Social History Tobacco Use Types Packs/Day Years [...] Description 07/04/2025 9:40 AM EST Office Visit [facility] 14 [facility] [address] [place] [address] Carey Mckeon MD 14 [facility] [address] [place], [place] [phone] [email or web address] 08/24/2025 7:45 AM EST Appointment [facility] [place] [address] 3rd [place] [address] Shimon Prince MD [address] [place] [address] [email or web address] 11/26/2025 11:20 AM EDT Office Visit [facility] Medicine 14 [facility] [address] [place] [address] Carey Mckeon MD 14 [facility] [address] [place] [address] 12/25/2025 11:40 AM EDT Office Visit [facility] 30 [place] [address] Jean Boone MD [address] [place] [address] documented as of this encounter Visit Diagnoses [...] documented as of this encounter Care Teams Mitochondrial Disorders Counselor Relationship Specialty Start Date End Date Carey Mckeon MD 14 [facility] [address] [place] [address] PCP - General 08/05/17 Sandra Martínez CNP 14 [facility] [address] [place] [address] [email or web address] Historical LMR Provider 05/17/17 Carey Mckeon MD [address] [place] [address] [place] [address] Historical LMR Provider 05/17/17 Carey Mckeon MD [address] [place] [address] Insurance Assigned Provider 11/06/23 Jean Boone MD [address] [place] [address] [email or web address] Medical Oncology 11/15/24 documented as of this encounter Additional Source Comments The information contained in this document represents components of the legal health record. It is not the complete legal health record.[facility]
--- OUTSIDE RECORDS SUMMARY | 2025-06-26 16:45 | XMS_ITS | Encounter Summary ---
Author Organization [facility] Address [address] [place] [address] Phone Care Team Providers Care Driver License Reviewing Officer Name Role Phone Ed Hunt MD Unavailable Sandra Martínez GENERAL II FARMWORKER Unavailable Brodie Multani MD Unavailable [phone] Carey Mckeon MD Unavailable Main Sanchez MD Unavailable Unavailable Larry Traylor MD Unavailable [phone] Carey Mckeon MD Primary Care Provider [phone] Carey Mckeon MD Unavailable [phone] Jean Boone MD Unavailable [phone] Encounter Details Date Type Department Care Team (Late st Contact Info) Description 03/08/2019 Procedure Pass [address] [address] Social History Tobacco Use Types Packs/Day Years [...] - - Weight 72.6 kg (160 lb) 03/10/2019 1:07 PM EDT Height 177.8 cm (5' 10 ) 03/10/2019 1:07 PM EDT Body Mass Index 22.96 03/10/2019 1:07 PM EDT documented in this encounter Plan of Treatment Upcoming Encounters Date Type Department Care Team (Late st Contact Info) Description 07/04/2025 9:40 AM EST Office Visit [facility] Internal Medicine 14 [facility] [address] [place] [address] Carey Mckeon MD 14 [facility] [address] [place] [address] 08/24/2025 7:45 AM EST Appointment [facility] [address] [place] [address] Shimon Prince MD [address] [place] [address] [email or web address] 11/26/2025 11:20 AM EDT Office Visit [facility] Internal Medicine 14 [facility] [address] [place] [address] Carey Mckeon MD 14 [facility] [address] [place] [address] 12/25/2025 11:40 AM EDT Office Visit [facility] at [address] [address] Jean Boone MD [address] [place] [address] documented as of this encounter Visit Diagnoses [...] documented as of this encounter Care Teams Driver License Reviewing Officer Relationship Specialty Start Date End Date Carey Mckeon MD [address] [place] [address] [place] [address] PCP - General 08/05/17 Ed Hunt MD [address] [place] [address], [address] [place] [address] Historical LMR Provider 05/17/17 08/09/21 Sandra Martínez CNP [address] [place] [address] Historical LMR Provider 05/17/17 Brodie Multani MD [address] [place] [address], 2nd [place] [address] Historical LMR Provider 05/17/17 08/09/21 Carey Mckeon MD [address] [place] [address] [place] [address] Historical LMR Provider 05/17/17 Main Sanchez MD Historical LMR Provider 05/17/17 08/09/21 Larry Traylor MD [address] [place] [address] Historical LMR Provider 05/17/17 Carey Mckeon MD 14 [facility] [address] [place] [address] [email or web address] Insurance Assigned Provider 11/06/23 Jean Boone MD [address] [place] [address] [email or web address] Medical Oncology 11/15/24 documented as of this encounter Additional Source Comments The information contained in this document represents components of the legal health record. It is not the complete legal health record.[facility]
--- OUTSIDE RECORDS SUMMARY | 2025-06-26 16:45 | XMS_ITS | Encounter Summary ---
Author Organization [facility] Address [address] [place] [address] Phone Care Team Providers Care Electric Range Servicer Name Role Phone Sandra Martínez STRIP MILL OPERATOR Unavailable + [phone] Carey Mckeon MD Unavailable [phone] aCrey Mckeon MD Primary Care Provider + [phone] Carey Mckeon MD Unavailable [phone] Jean Boone MD Unavailable [phone] Encounter Details Date Type Department Care Team (Late st Contact Info) Description 12/31/2023 Procedure Pass [address] [place] [address] Social History Tobacco Use Types Packs/Day Years Used Date Smoking Tobacco: Former Cigarettes Q uit: 1991 Smokeless Tobacco: Former Alcohol Use Standard Drinks/Week Comments No 0 (1 standard drink = 0.6 oz pur e alcohol) Education Answer Date Recorded Are you interested in more education? Not on steven e 11/27/2022 Are you concerned about learning? Not on file 11/27/2022 No 11/27/2022 No 11/27/2022 Digital Access Answer Date Recorded No 12/23/2022 No 12/23/2022 Reliable internet access at home? Not on file 12/23/2022 Device with a working camera? Not on file Intimate Partner Violence Answer Date R ecorded Denied Basic Needs Not on file 07/21/2023 In the past 12 months have y ou been in a relationship with a person who hurts, threatens, or tries to control you? No 07/21/2023 Worried food would run out Not on file 07/21 In the past 12 months have y ou been in a relationship with a person who hurts, threatens, or tries to control you? No 07/21/2023 Sex and Gender Information Value Date Recorded Sex Assigned at Male 09/03/2021 11:07 AM EST Legal Sex Male 10:11 PM EDT Gender Identity Male 09/03/2021 11:07 AM EST Sexual Orientation Straight 09/03/2021 11 :07 AM EST documented as of this encounter Plan of Treatment Upcoming Encounters Date Type Department Care Team (Late st Contact Info) Description 07/04/2025 9:40 AM EST Office Visit [facility] Internal Medicine [address] [address] Carey Mckeon MD [address] [place] [address] 08/24/2025 7:45 AM EST Appointment [facility] [address] [place] [address] 3rd [place] [address] Shimon Prince MD [address] [place] [address] [email or web address] 11/26/2025 11:20 AM EDT Office Visit [facility] Internal Medicine [address] [address] Carey Mckeon MD [address] [place] [address] 12/25/2025 11:40 AM EDT Office [facility] at [facility] 30 [place] [address] Jean Boone MD [address] [place] [address] documented as of this encounter Visit Diagnoses Not on filedocumented in this encounter Additional Health Concerns Assessment Noted Time PHQ-2 Depression Total Score: 1 07/21/20 23 3:34 PM EST documented as of this encounter Care Teams Electric Range Servicer Relationship Specialty Start Date End Date Carey Mckeon MD [address] [place] [address] [place] [address] [email or web address] PCP - General 08/05/17 Sandra Martínez, STRIP MILL OPERATOR [address] [place] [address] [place] [address] [email or web address] Historical LMR Provider 05/17/17 Carey Mckeon MD [address] [place] [address] Historical LMR Provider 05/17/17 Carey Mckeon MD [address] [place] [address] Insurance Assigned Provider 11/06/23 Jean Boone MD [address] [place] [address] [email or web address] Medical Oncology 11/15/24 documented as of this encounter Additional Source Comments The information contained in this document represents components of the legal health record. It is not the complete legal health record.[facility]
--- OUTSIDE RECORDS SUMMARY | 2025-06-26 16:45 | XMS_ITS | Encounter Summary ---
Author Organization [facility] Address [address] [place] [phone] Phone Care Team Providers Care Custom Harvester Name Role Phone Ed Hunt MD Unavailable [phone] Sandra Martínez ERECTING CRANE OPERATOR Unavailable Brodie Multani MD Unavailable [phone] Carey Mckeon MD Unavailable [phone] Main Sanchez MD Unavailable Unavailable KymberlyLarry dela cruz MD Unavailable [phone] Carey Mckeon MD Primary Care Provider [phone] Carey Mckeon MD Unavailable [phone] Jean Boone MD Unavailable [phone] Reason for Referral * MRI/CAT Scan - Closed Specialty Diagnoses / Procedures Referred By Contac t Referred To Contact Radiology Diagnoses Pelvic and perineal pain Procedures MRI Pelvis (Bone) Agustin David MD Phone: tel: fax: mailto:[email or web address] Referral ID Status Reason Start Date Expiration Date Visits Re quested Visits Authorized [id number] Closed 03/08/2019 03/07/2020 1 1 Encounter Details Date Type Department Care Team (Late st Contact Info) Description 03/08/2019 Ancillary Orders [facility] Department [address] [place] [id number] Agustin David MD [address] [place] [phone] [email or web address] Pelvic and perineal pain Social History Tobacco Use Types Packs/Day Years [...] Description 07/04/2025 9:40 AM EST Office Visit [facility] Internal Medicine [address] [address] Carey Mckeon MD [address] [place] [phone] 08/24/2025 7:45 AM EST Appointment [facility] [address] [place] [address] Shimon Prince MD [address] [place] [phone] [email or web address] 11/26/2025 11:20 AM EDT Office Visit [facility] Internal Medicine [address] [address] Carey Mckeon MD [address] [address] 12/25/2025 11:40 AM EDT Office Visit [facility] at [address] [address] Jean Boone MD [address] [place] [phone] [email or web address] documented as of this encounter Results * MRI PELVIS (BONY FOCUS) WITHOUT CONTRAST (03/16/2019 7:30 AM EDT) Anatomical Region Laterality Modality Pelvis Magnetic Resonan ce 03/16/2019 4:49 PM EDT Impressions 03/17/2019 11:04 AM EDT No acute findings. Large LEFT hydrocele or large epididymal head cyst measuring up to 8 cm. Lower lumbar spine degenerative disc disease. POS - [id number] Edited by: Riana Gonzalez on 03/17/2019 10:44 AM Narrative 03/17/2019 11:04 AM EDT EXAM: MRI PELVIS (BONY FOCUS) WITHOUT CONTRAST HISTORY: Pelvic and perineal pain, pain in left hip TECHNIQUE: Multiplanar multisequence MRI imaging of the pelvis with the following sequences: Axial T1, axial T2, axial STIR, coronal T1, coronal STIR, sagittal STIR, sagittal T1. COMPARISON: None. FINDINGS: There is no bone marrow edema, fracture or dislocation. There is no evidence for sacroiliitis. The sacroiliac joints appear normal. There is mild bilateral hip degenerative joint space narrowing bilaterally. There is minimal acetabular and subcapital femoral neck spurring. There is no soft tissue mass. No evidence for bursitis or effusions. Superior to the LEFT testis there is either a large hydrocele or large epididymal cyst measuring up to 8 cm. There is severe degenerative loss of disc height at L4-L5 and L5-S1. Diffuse disc bulging/posterior ridgelike spurring, bilateral facet hypertrophy with mild to moderate canal stenosis at L4-L5. Mild disc bulging with posterior ridgelike spurring at L5-S1 with mild canal narrowing. Procedure Note Radha Mccormick MD - 03/17/2019 EXAM: MRI PELVIS (BONY FOCUS) WITHOUT CONTRAST HISTORY: Pelvic and perineal pain, pain in left hip TECHNIQUE: Multiplanar multisequence MRI imaging of the pelvis with thefollowing sequences: Axial T1, axial T2, axial STIR, coronal T1, coronalSTIR, sagittal STIR, sagittal T1. COMPARISON: None. FINDINGS: There is no bone marrow edema, fracture or dislocation. There is noevidence for sacroiliitis. The sacroiliac joints appear normal. There ismild bilateral hip degenerative joint space narrowing bilaterally. Thereis minimal acetabular and subcapital femoral neck spurring. There is nosoft tissue mass. No evidence for bursitis or effusions. Superior to the LEFT testis there is either a large hydrocele or largeepididymal cyst measuring up to 8 cm. There is severe degenerative loss of disc height at L4-L5 and L5-S1.Diffuse disc bulging/posterior ridgelike spurring, bilateral facethypertrophy with mild to moderate canal stenosis at L4-L5. Mild discbulging with posterior ridgelike spurring at L5-S1 with mild canalnarrowing. IMPRESSION: No acute findings. Large LEFT hydrocele or large epididymal head cyst measuring up to 8 cm. Lower lumbar spine degenerative disc disease. POS - [id number] Edited by: Riana Gonzalez on 03/17/2019 10:44 AM Agustin David MD IMG MR PELVIS Final R esult documented in this encounter Visit Diagnoses Diagnosis Pelvic and perineal pain Pelvic and perineal pain documented in this encounter Additional Health Concerns Infection Onset Date Last Indicated Resolved Time CoV-Exposed Comment:Recent close contact documented in the COVID-19 Amb Triage Form 10/14/2021 10/16/2021 10/25/2021 1:22 AM E DT CoV-Risk Comment:Per Ambulatory Triage Form 10/17/2021 10/17/202110/28 1:21 AM EDT CoV-Presumed 12/14/2021 12/14/2021 01/04/2022 1:22 AM EDT documented as of this encounter Care Teams Custom Harvester Relationship Specialty Start Date End Date Carey Mckeon MD [address] [place] [phone] [email or web address] PCP - General 08/05/17 Ed Hunt MD [address] [facility], [address] [place] [address] Historical LMR Provider 05/17/17 08/09/21 Sandra Martínez CNP [address] [place] [id number] Historical LMR Provider 05/17/17 Brodie Multani MD [address] [place] [address], [address] [place] [address] Historical LMR Provider 05/17/17 08/09/21 Carey Mckeon MD [address] [place] [address] Historical LMR Provider 05/17/17 Main Sanchez MD Historical LMR Provider 05/17/17 08/09/21 Larry Traylor MD [address] [place] [address] Historical LMR Provider 05/17/17 Carey Mckeon MD [address] [place] [id number] Insurance Assigned Provider 11/06/23 Jean Boone MD [address] [place] [id number] Medical Oncology 11/15/24 documented as of this encounter Additional Source Comments The information contained in this document represents components of the legal health record. It is not the complete legal health record.[facility]
--- OUTSIDE RECORDS SUMMARY | 2025-06-26 16:45 | XMS_ITS | Clinical Summary ---
Author Organization [facility] Address [address] [place] [id number] Phone Care Team Providers Care Combine Mechanic Name Role Phone Sandra Martínez BRAIDER SETTER Unavailable [phone] Carey Mckeon MD Unavailable Carey Mckeon MD Primary Care Provider + [phone] Carey Mckeon MD Unavailable [phone] Jean Boone MD Unavailable [phone] Allergies Active Allergy Reactions Criticality Noted Date Comments Pollen Extracts 02/06/2020 Medications lysine 500 mg Tab Take 500 mg by mouth 2 (two) times a day. Orally Active triamcinolone acetonide 0.025 % cream Apply 1 application. topically as needed. 05/24/20 20 Active dicyclomine (BENTYL) 10 MG capsule Take 10 mg by mouth 4 (four) times a day as needed. Active aspirin 81 mg chewable tablet Take 1 tablet (81 mg total) by mouth daily. 30 tablet 5 12/08/19 22 Active acetaminophen (TYLENOL) 650 MG CR tablet Take 650 mg by mouth every 8 (eight) hours as needed for pain (specific location in comments). Active cyanocobalamin, vitamin B-12, (VITAMIN B-12 ORAL) Take by mouth. Active naproxen (NAPROSYN) 500 MG tabletIndications :Lumbosacral spinal stenosis Take 1 tablet (500 mg total) by mouth 2 (two) times a day with meals for 14 days. 28 tablet 06/13/20 24 Active sucralfate (CARAFATE) 1 gram tablet Take 1 g by mouth. TAKE 1 TABLET ON AN EMPTY STOMACH BEFORE MEALS AND BEFORE BEDTIME ORALLY 2-4 TIMES A DAY 09/11/19 25 Active cholecalciferol (VITAMIN D3) 2,000 unit tablet Take 2,000 Units by mouth daily. Active famotidine (PEPCID) 20 MG tablet Take 20 mg by mouth 2 (two) times a day. Active hyoscyamine (LEVSIN SL) 0.125 mg SL tabletIndications :Urinary frequency,Irritab le bowel syndrome, unspecified type TAKE ONE TABLETS BY MOUTH THREE TIMES A DAY 270 tablet 3 12/04/19 25 Active losartan (COZAAR) 100 MG tabletIndications :Essential hypertension TAKE 1 TABLET BY MOUTH EVERY DAY 90 tablet 3 01/09/20 25 Active alfuzosin (UROXATRAL) 10 mg 24 hr tabletIndications :Lower urinary tract symptoms (LUTS) TAKE 1 TABLET BY MOUTH EVERYDAY AT BEDTIME 90 tablet 2 04/05/20 25 Active chlorthalidone (HYGROTON) 25 MG tabletIndications :Primary hypertension TAKE 1/2 TO 1 TABLET BY MOUTH DAILY 90 tablet 04/16/20 25 Active levothyroxine (SYNTHROID, LEVOTHROID) 137 MCG tabletIndications :Hypothyroidism, unspecified type Take 1 tablet (137 mcg total) by mouth every morning. 90 tablet 2 05/15/20 25 Active metoprolol succinate (TOPROL-XL) 25 MG 24 hr tabletIndications :Primary hypertension TAKE 1 TABLET (25 MG TOTAL) BY MOUTH DAILY. 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 Tylenol available if needed. Hypertensive disorder 12/05/2021 Assessment & Plan (12/05/2021 6:47 PM EDT): Patient does have hypertension which is typically managed with chlorthalidone, losartan, and alpha-maya. -Formulary substitution for alfuzosin with tamsulosin -Chlorthalidone and losartan held to allow for permissive hypertension during his CVA evaluation Reflux esophagitis 12/05/2021 Assessment & Plan (12/05/2021 6:46 PM EDT): PPI continued. Zenker's diverticulum 12/05/2021 Assessment & Plan (12/05/2021 6:46 PM EDT): Recent surgery for his diverticulum, 12/03. Soft diet needed for the next 1 to 2 weeks. Chronic low back pain 12/05/2021 Assessment & Plan (12/05/2021 6:45 PM EDT): Patient usually takes Aleve, which was held for now in the setting of DVT prophylaxis with Lovenox. -Tylenol available as needed for mild pain -Lidocaine patch ordered, daily as needed Vision loss of left eye 12/05/2021 Assessment & Plan (12/05/2021 7:21 PM EDT): Multiple episodes of left eyes central vision loss, today with outpatient ophthalmology slit-lamp exam confirming multiple abnormalities with pallor and edema of the optic nerve. Differential including acute CVA and sent to the ED for evaluation. -CTA head and neck showed no evidence for acute infarct or intracranial hemorrhage. No abrupt cut off of flow in the intracranial arteries. 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 -[facility] team recommended additional imaging with MRI of the brain and orbits with contrast which has been ordered -Monitor on cardiac telemetry -Aspirin 325 mg given tonight with 81 mg daily to follow beginning 12/06 -Atorvastatin 80 mg given tonight awaiting lipid panel. Evidence of vessel stenosis/atherosclerosis on his CTA. -Additional stroke labs requested with hemoglobin A1c, lipid panel, TSH. CRP elevated 11.6, ESR within normal limits, PT/INR 13.2 and 1.2 respectively. -PT/OT evaluations requested -NEWSPAPER PHOTO EDITOR evaluation requested. Diet advanced to soft diet to protect his esophagus after recent surgery. Well-tolerated in the ED with nursing swallow screen in the ED. -Permissive hypertension in the first 24 to 48 hours -Reconsult [facility] after imaging Neurology also requested spinal fluid analysis for cell count/differential, protein, glucose, Lyme IgG/IgM, VZV IgG/IgM, oligoclonal bands (requires concurrent SPEP), and save extra CSF for further studies if needed. With IR not available on the weekend I did call the ED to see if this could be performed before patient went upstairs. Spoke with Yoel FELDMAN, who will be speaking with the covering MD. 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 -eye lubricant ordered -Continue outpatient PT Left carpal tunnel syndrome Encounters Date Type Department Care Team Description 06/18/2025 2:40 PM EST Office Visit [facility] at [address] [address] Jean Boone MD Squamous cell carcinoma of skin of right cheek (Primary Dx) 06/08/2025 Orders Only [facility] at [address] [address] Provider, MD Francie 06/07/2025 9:30 AM EST - 06/07/2025 11:59 PM EST Hospital Encounter [facility], Pet/Ct - [address] [address] Jean Boone MD Discharge Disposition: Home or Self Care 05/28/2025 Refill [facility] Medical [facility] Internal Medicine [address] [address] Carey Mckeon MD Medication Refill (Atorvastatin) 05/23/2025 11:30 AM EDT Office Visit [facility] [address] [place] [address] Guillaume Patel MD Vision loss of left eye (Primary Dx); Ischemic optic neuropathy of left eye 05/17/2025 Telephone [facility] Internal Medicine [address] [address] Carey Mckeon MD referral 05/17/2025 Refill [facility] Internal Medicine [address] [address] Riana Merino APRN Medication Refill (Metoprolol) 05/15/2025 Refill [facility] Internal Medicine [address] [address] Ashwini Santos CMA Medication Refill (Levothyroxine) 05/06/2025 12:37 PM EDT - 05/06/2025 11:59 PM EDT Hospital Encounter [address] [address] Conrado Ramirez PA Discharge Disposition: Home or Self Care 05/01/2025 Procedure Pass [address] [address] 05/01/2025 Transcribe Orders Virtual Department [address] [place] [id number] Conrado Ramirez PA Spinal stenosis, lumbar region with neurogenic claudication (Primary Dx) 04/16/2025 Refill [facility] Internal Medicine [address] [address] Lita Castro PA-C Medication Refill 04/05/2025 Refill [facility] Internal Medicine [address] [address] Carey Mckeon MD Medication Refill (Alfuzosin) from Last 3 Months Immunizations Immunization Administration Dates Next Due COVID-19 (Pre-05/24) Pfizer Vaccine, mRNA, PF 11/20/2021,09/28/2020,09/06/2020 INFLUENZA, SPLIT VIRUS, TRIVALENT PF 06/02/2016 Influenza High-Dose Quadriva lent Preservative Free IM 04/26/2023 Influenza High-Dose Trivalen t Preservative Free IM 05/15/2024,05/12/2021,06/02/2019,06/07,05/16/2015,05/17/2014 Influenza Quadrivalent Adjuv anted Preservative Free IM 06/01/2022 Influenza Quadrivalent Prese rvative Free IM 04/30/2020 Influenza Split (Incl. Purif ied Surface Antigen) 04/29/2010 Influenza Trivalent Adjuvant ed Preservative free IM 05/18/2025 Pneumococcal polysaccharide PPSV23 05/16/2015 RSV Vaccine (monovalent, adjuvanted) 05/12/2023 Td, unspecified formulation 04/26/2007 Tdap 06/11/2017 Zoster recombinant 02/19/2023,09/24/2022 Family History Medical History Relation Comments Coronary artery disease Father Pneumonia Father Other Mother hip operation Blindness Neg Hx Glaucoma Neg Hx Relation Status Comments Daughter Alive Father Mother Son Alive Social History Tobacco Use Types Packs/Day Years Used Date Smoking Tobacco: Former Cigarettes Q uit: 1992 Smokeless Tobacco: Former Tobacco Cessation:Counseling Given: Not Answered Alcohol Use Standard Drinks/Week Comments No 0 [...] ecorded Denied Basic Needs Not on file 11/15/2024 In the past 12 months have y ou been in a relationship with a person who hurts, threatens, or tries to control you? No 11/15/2024 Worried food would run out Not on file 11/15 In the past 12 months have y ou been in a relationship with a person who hurts, threatens, or tries to control you? No 11/15/2024 Sex and Gender Information Value Date Recorded Sex Assigned at Male 09/03/2021 11:07 AM EST Legal Sex Male 10:11 PM EDT Gender Identity Male 09/03/2021 11:07 AM EST Sexual Orientation Straight 09/03/2021 11 :07 AM EST Last Filed Vital Signs Vital Sign Reading Time Taken Comments Blood Pressure 132/74 06/18/2025 2:40 PM EST Pulse 88 06/18/2025 2:40 PM EST Temperature 36.3 C (97.3 F) 06/18/2025 2:40 PM EST Respiratory Rate 18 11/14/2024 10:05 AM EDT Oxygen Saturation 98% 06/18/2025 2:40 PM EST Inhaled Oxygen Concentration - - Weight 69.2 kg (152 lb 8 oz) 06/18/2025 2:40 PM EST Height 175.3 cm (5' 9.02 ) 06/18/2025 2:40 PM ES T Body Mass Index 22.51 06/18/2025 2:40 PM EST Plan of Treatment Upcoming Encounters Date Type Department Care Team (Late st Contact Info) Description 07/04/2025 9:40 AM EST Office Visit [facility] Internal Medicine [address] [address] Carey Mckeon MD [address] [place] [address] 08/24/2025 7:45 AM EST [facility]ment [facility] [place] [address] Shimon Prince MD [address] [place] [id number] [email or web address] 11/26/2025 11:20 AM EDT Office Visit [facility] Internal Medicine 14 [facility] [address] [place] [address] Carey Mckeon MD 14 [facility] [address] [place] [address] 12/25/2025 11:40 AM EDT Office Visit [facility] at [facility] [address] [place] [address] Jean Boone MD [address] [place] [address] [email or web address] Health Maintenance Due Date Last Done Comments PNEUMOCOCCAL VACCINES (50+ years) (2 of 2 - PCV) 05/16/2016 05/16/2015 COVID-19 VACCINE ( season) 2025 05/18/2025, 05/04/2023, 06/01/2022, Additional history exists TSH LEVEL 09/29/2025 09/29/2024, 12/01, 11/19/2022, Additional history exists CREATININE LEVEL 11/07/2025 11/07/2024, , 12/21/2023, Additional history exists POTASSIUM LEVEL 11/07/2025 11/07/2024, 09/03, 12/21/2023, Additional history exists DEPRESSION SCREENING 11/15/2025 11/15/2024 BLOOD PRESSURE 12/16/2025 06/18/2025 Adult Td,Tdap Booster 06/11/2027 06/11/2017, 007 ZOSTER VACCINES Completed 02/19/2023, 09/24/2022 RSV VACCINE Completed 05/12/2023 INFLUENZA VACCINE Completed 05/18/2025, , 04/26/2023, Additional history exists HEPATITIS A VACCINES Aged Out No long er eligible based on patient's age to complete this topic HIB VACCINES Aged Out No longer eligi ble based on patient's age to complete this topic MENINGOCOCCAL VACCINES (ACWY) Aged Out No longer eligible based on patient's age to complete this topic MENINGOCOCCAL VACCINES (B) Aged Out N o longer eligible based on patient's age to complete this topic Medical Devices Not on file Procedures Procedure Name Priority Date/Time Associated Diagnosis Comments OUTSIDE IMAGING Routine 06/08/2025 7:36 AM EST NM PET [address] SKULL BASE TO MID THIGHS Routine 06/07/2025 10:53 AM EST Squamous cell carcinoma of skin of right cheek OCT, OPTIC NERVE - OU - BOTH EYES Routine 05/23/2025 1:00 PM EDT Vision loss of left eye FUNDUS PHOTOS - OU - BOTH EYES Routine 05/23/2025 1:00 PM EDT Vision loss of left eye [place] VISUAL FIELD - OD - RIGHT EYE Routine 05/23/2025 12:14 PM EDT Vision loss of left eye MRI LUMBAR SPINE (NEURO) WITH AND WITHOUT CONTRAST Routine 05/06/2025 1:41 PM EDT Spinal stenosis, lumbar region with neurogenic claudication COMPREHENSIVE METABOLIC PANEL (CMP) Routine 11/07/2024 12:04 PM EDT Primary hypertension Stage 3 chronic kidney disease, unspecified whether stage 3a or 3b CKD TSH WITH REFLEX Routine 09/29/2024 8:43 AM EST Acquired hypothyroidism from Last 3 Months or Most Recently Relevant to Health Maintenance Results * Outside Imaging Report Only (06/08/2025 7:36 AM EST) Historical Provider MD GUERRERO XR CHEST Final Res ult * NM PET CT Skull Base to Mid Thighs (06/07/2025 10:53 AM EST) Anatomical Region Laterality Modality Positron Emissio n Tomography (PET) Narrative 06/07/2025 9:42 AM EST [facility] Jean GUERRERO NM PET Final Result * OCT, Optic Nerve - OU - Both Eyes - Cirrus; RNFL, GCC; Macula, Disc; HD Radial Disc KATARINA, HD 5-Line Disc KATARINA (05/23/2025 1:00 PM EDT) Narrative THERESE - 05/25/2025 1:23 PM EDT Images from the original result were not included. Right Eye Quality: Good. Retinal nerve fiber layer thickness (um): 84. Optic nerve head and nerve fiber layer: Normal. Ganglion cell or retinal thickness: Normal. Left Eye Quality: Good. Retinal nerve fiber layer thickness (um): 73. Optic nerve head and nerve fiber layer: Abnormal superior. Ganglion cell or retinal thickness: Diffuse thinning. Notes Guillaume Patel MD OPHTHALMOLOGY IMAGING Final Re sult THERESE * Fundus Photos - OU - Both Eyes (05/23/2025 1:00 PM EDT) Anatomical Region Laterality Modality Head Photography Narrative 05/25/2025 1:23 PM EDT Images from the original result were not included. Right Eye Disease has: been stable. Left Eye Disease has: been stable. Notes Result [facility] Guillaume Patel MD OPHTHALMOLOGY IMAGING Final Re sult * [place] Visual Field - OD - Right Eye (05/23/2025 12:14 PM EDT) [facility] Mean Deviation (OD) - Right Eye -1.28 dB [place] Anatomical Region Laterality Modality Head Visual Field Narrative 05/25/2025 1:23 PM EDT Pattern: 24-2. Strategy: SALAZAR - Standard. Reliability: Poor. Mean Deviation: -1.28 dB dB. Foveal threshold: Normal. Findings: Non-specific defects. Range Manager Comments: OS not performed due to vision worse than 20/200 with eccentric fixation. us Guillaume Patel MD OPHTHALMOLOGY IMAGING Final Re sult * MRI LUMBAR SPINE (NEURO) WITH AND WITHOUT CONTRAST (05/06/2025 1:41 PM EDT) Anatomical Region Laterality Modality L-spine Magnetic Resonan ce 05/07/2025 1:48 PM EDT Impressions 05/07/2025 1:57 PM EDT 1. Lumbar degenerative disc disease with a mild levoconvex scoliosis apex at L3-4. Postoperative change for left hemilaminectomy at L4-5. The degree of degenerative change appears similar to January 15, 2024 lumbar spine MRI. Narrative 05/07/2025 1:57 PM EDT MRI LUMBAR SPINE (NEURO) WITH AND WITHOUT CONTRAST Referring clinician's provided indication for this examination in Epic: Outside Radiology Order; spinal stenosis TECHNIQUE: MRI LUMBAR SPINE (NEURO) WITH AND WITHOUT CONTRAST Multi-sequence, multi-planar MRI of the lumbar spine was performed without and with intravenous contrast. COMPARISON: MRI lumbar spine January 15, 2024 FINDINGS: LUMBAR SPINE: Alignment and Vertebrae: No lumbar compression fracture or spondylolisthesis. There is a mild levoconvex lumbar scoliosis apex at L3-4. Marrow: No bone marrow replacing lesion. Benign intraosseous hemangioma within L2 vertebral body. Discs and Endplates: There is moderate intervertebral disc height loss L3-4, C4- 5, and L5-S1. There is endplate irregularity is mild marrow edema related to degenerative endplate change at L3-4, L4-5, and L5-S1. Conus: The conus terminates at the T12-L1 level. The conus appears normal in signal intensity. Contrast: No abnormal intradural enhancement. Soft Tissue: Normal. No prevertebral edema. Other Findings: The infrarenal abdominal aorta measures 35 mm in maximal diameter. There is an aneurysmal left common iliac artery similar the prior study. Findings by level: T12-L1: No spinal canal or neural foraminal narrowing. L1-L2: There is a disc bulge without spinal canal or neural foraminal narrowing. L2-L3: There is disc bulge and facet arthropathy without spinal canal or left neural foraminal narrowing. There is mild the right neural foraminal narrowing. L3-L4: There is right subarticular narrowing due to disc bulge and facet arthropathy there is mild left and moderate right neural foraminal narrowing similar the prior study. L4-L5: There is a left hemilaminectomy. No spinal canal narrowing. There is moderate bilateral neural foraminal narrowing right worse than left similar the prior study. L5-S1: There is a disc bulge and facet arthropathy without spinal canal narrowing. There is mild right and moderate left neural foraminal narrowing similar prior study. Procedure Note Selvin Dillon DO - 05/07/2025 MRI LUMBAR SPINE (NEURO) WITH AND WITHOUT CONTRAST Referring clinician's provided indication for this examination in Epic:Outside Radiology Order; spinal stenosis TECHNIQUE: MRI LUMBAR SPINE (NEURO) WITH AND WITHOUT CONTRAST Multi-sequence, multi-planar MRI of the lumbar spine was performed withoutand with intravenous contrast. COMPARISON: MRI lumbar spine January 15, 2024 FINDINGS: LUMBAR SPINE: Alignment and Vertebrae: No lumbar compression fracture orspondylolisthesis. There is a mild levoconvex lumbar scoliosis apex atL3-4. Marrow: No bone marrow replacing lesion. Benign intraosseous hemangiomawithin L2 vertebral body. Discs and Endplates: There is moderate intervertebral disc height lossL3-4, C4- 5, and L5-S1. There is endplate irregularity is mild marrow edemarelated to degenerative endplate change at L3-4, L4-5, and L5-S1. Conus: The conus terminates at the T12-L1 level. The conus appears normalin signal intensity. Contrast: No abnormal intradural enhancement. Soft Tissue: Normal. No prevertebral edema. Other Findings: The infrarenal abdominal aorta measures 35 mm in maximaldiameter. There is an aneurysmal left common iliac artery similar theprior study. Findings by level: T12-L1: No spinal canal or neural foraminal narrowing. L1-L2: There is a disc bulge without spinal canal or neural foraminalnarrowing. L2-L3: There is disc bulge and facet arthropathy without spinal canal orleft neural foraminal narrowing. There is mild the right neural foraminalnarrowing. L3-L4: There is right subarticular narrowing due to disc bulge and facetarthropathy there is mild left and moderate right neural foraminalnarrowing similar the prior study. L4-L5: There is a left hemilaminectomy. No spinal canal narrowing. Thereis moderate bilateral neural foraminal narrowing right worse than leftsimilar the prior study. L5-S1: There is a disc bulge and facet arthropathy without spinal canalnarrowing. There is mild right and moderate left neural foraminalnarrowing similar prior study. IMPRESSION: 1. Lumbar degenerative disc disease with a mild levoconvex scoliosis apexat L3- 4. Postoperative change for left hemilaminectomy at L4-5. The degreeof degenerative change appears similar to January 15, 2024 lumbar spineMRI. Conrado ECHOLS IMG MR XSPECIALTY Final Result * (ABNORMAL) Comprehensive metabolic panel (11/07/2024 12:04 PM EDT) SODIUM 141 133 - 146 mmol/L [facility] POTASSIUM 3.7 3.3 - 5.1 mmol/L [facility] CHLORIDE 105 96 - 108 mmol/L [facility] CO2 26 21 - 35 mmol/L [facility] BUN 41(H) 6 - 19 mg/dL [facility] CREATININE 1.70(H) 0.5 - 1.5 mg/dL [facility] GLUCOSE 67(L) 70 - 99 mg/dL [facility] ALBUMIN 3.9 3.9 - 4.8 g/dL [facility] TOTAL PROTEIN 6.5 6.5 - 8.0 g/dL [facility] CALCIUM 9.5 8.4 - 10.3 mg/dL [facility] ALKALINE PHOSPHATASE 114 39 - 117 U/L [facility] TOTAL BILIRUBIN 0.3 0.0 - 1.2 mg/dL [facility] AST 14 0 - 37 U/L [facility] ALT 13 0 - 40 U/L [facility] GLOBULIN 2.6 1 - 4.8 g/dL [facility] EGFR 40(L) >59 mL/min/1.7 3m2 [facility] Comment:Estimated glomerular filtration rate calculated using the CKD-EPI refit equation. ANION GAP 14 10 - 20 mmol/L [facility] Blood 11/07/2024 12:0 4 PM EDT 11/07/2024 12:06 PM EDT us Carey Mckeon MD LAB BLOOD BKR ORDERABLES Fin al Result [address] [address] * (ABNORMAL) TSH with reflex (09/29/2024 8:43 AM EST) TSH 12.00(H) 0.27 - 4.20 uIU/mL [facility] Blood 09/29/2024 8:43 AM EST 09/29/2024 8:46 AM EST Carey Mckeon MD LAB BLOOD BKR ORDERABLES Fin al Result Performing Organization Address [facility] Co de Phone Number [address] [address] from Last 3 Months or Most Recently Relevant to Health Maintenance Insurance MEDICARE PART A & B [facility] MEDICARE SUPPLEMENT Member Subscriber Plan / Payer (Ef fective 2020-Present) Name:Jarad Aldana Relation to Subscriber:Self Name:Jarad Aldana Payer ID:[id number] (NAIC) Group ID:Not on file Type:HMO Address: [facility] CLAIMS DIVISION [address] [place] [id number] MEDICARE PART A & B MEDICARE SUPPLEMENT MEDICARE PART A & B Member Subscriber Plan / Payer (Ef fective 2007-Present) Name:Jarad Aldana Member ID:[id number] Relation to Subscriber:Self Name:Jarad Aldana Subscriber ID:[id number] Payer ID:[id number] Group ID:Not on file Type:Medicare Address: [employer] [address] [place] [id number] [place] [address] MEDICARE SUPPLEMENT MEDICARE PART A & B MEDICARE SUPPLEMENT MEDICARE PART A & B MEDICARE SUPPLEMENT Member Subscriber Plan / Payer (Ef fective 2007-Present) Name:Lazaro Aldanay Member ID:[id number] Relation to Subscriber:Self Name:JovanLazaroy Subscriber ID:[id number] Payer ID:[id number] Group ID:Not on file Type:Medicare Address: [facility] [employer] [facility] [address] [place] [phone] [facility] MEDICARE SUPPLEMENT Member Subscriber Plan / Payer (Ef fective 2007-Present) Name:Jovan Jarad Member ID:[id number] Relation to Subscriber:Self Name:Jarad Aldana Subscriber ID:[id number] Payer ID:[id number] Group ID:Not on file Type:Medicare Address: [employer] [address] MEDICARE SUPPLEMENT [facility] MEDICARE SUPPLEMENT MEDICARE PART A & B [facility] MEDICARE SUPPLEMENT [facility] Address: [facility] CLAIMS DIVISION [address] [place] [address] Advance Directives For more information, please contact: [phone] (9AM - 5PM [facility], Wednesday-Wednesday) Documents on File Type Date Recorded Patient Development Planner Expl anation Healthcare Proxy 12/08/2021 1:12 PM * Full Code (Latest Code Status on File) Date Activated Date Inactivated Comments 12/05/2021 6:41 PM Question Answer Comments Code Status Confirmed With: Patient Care Teams Combine Mechanic Relationship Specialty Start Date End Date Carey Mckeon MD [address] [place] [address] [place] [address] PCP - General 08/05/17 Sandra Martínez, JABARI [address] [place] [address] [address] [place] [address] Historical LMR Provider 05/17/17 Carey Mckeon MD [address] [place] [address] [address] [place] [address] Historical LMR Provider 05/17/17 Carey Mckeon MD 14 [facility] [address] [place] [address] [email or web address] Insurance Assigned Provider 11/06/23 Jean Boone MD [address] [place] [address] [email or web address] Medical Oncology 11/15/24 Additional Source Comments The information contained in this document represents components of the legal health record. It is not the complete legal health record.[facility]
--- OUTSIDE RECORDS SUMMARY | 2025-06-26 16:45 | XMS_ITS | Encounter Summary ---
Author Organization [facility] Address [address] [place] [address] Phone Care Team Providers Care Farm Supervisor Name Role Phone Sandra Martínez AMBULATORY SERVICES REPRESENTATIVE Unavailable + [phone] Carey Mckeon MD Unavailable [phone] Carey Mckeon MD Primary Care Provider + [phone] Carey Mckeon MD Unavailable [phone] Jean Boone MD Unavailable [phone] Encounter Details Date Type Department Care Team (Late st Contact Info) Description 12/05/2021 Procedure Pass [facility], Ct Scan - [address] [address] Social History Tobacco Use Types Packs/Day Years [...] 2:09 PM EDT Pam Blanco, RN * [place] Suicide Severity Rating Scale (Screener/Recent Self-Report) Question Answer Date of Assessment Author 1. Wish to be (Past 1 Month) No 022 2:09 PM EDT Pam Blanco RN 2. Non-Specific Active Suici anca Thoughts (Past 1 Month) No 12/05/2021 2:09 PM EDT Pam Blanco, KATHY 6. Suicidal Behavior (Lifetime) No 2:09 PM EDT Pam Blanco RN documented as of this encounter Plan of Treatment Upcoming Encounters Date Type Department Care Team (Late st Contact Info) Description 07/04/2025 9:40 AM EST Office Visit [facility] Internal Medicine 14 [facility] [address] [place] [address] Carey Mckeon MD [address] [address] 08/24/2025 7:45 AM EST Appointment [facility] [place] [address] [place] [address] 3rd [place] [address] Shimon Prince MD [address] [place] [address] [email or web address] 11/26/2025 11:20 AM EDT Office Visit [facility] Internal Medicine [address] [address] Carey Mckeon MD [address] [address] 12/25/2025 11:40 AM EDT Office Visit [facility] at [address] [address] Jean Boone MD [address] [place] [address] documented as of this encounter Visit Diagnoses Not on filedocumented in this encounter Additional Health Concerns Infection Onset Date Last Indicated Resolved Time CoV-Presumed 12/14/2021 12/14/202101/04/2022 1:22 AM EDT documented as of this encounter Care Teams Farm Supervisor Relationship Specialty Start Date End Date Carey Mckeon MD [address] [place] [address] PCP - General 08/05/17 Sandra Martínez, AMBULATORY SERVICES REPRESENTATIVE [address] [place] [address] Historical LMR Provider 05/17/17 Carey Mckeon MD [address] [place] [address] Historical LMR Provider 05/17/17 Carey Mckeon MD [address] [place] [address] Insurance Assigned Provider 11/06/23 Jean Boone MD [address] [place] [address] Medical Oncology 11/15/24 documented as of this encounter Additional Source Comments The information contained in this document represents components of the legal health record. It is not the complete legal health record.[facility]
--- OUTSIDE RECORDS SUMMARY | 2025-06-26 16:45 | XMS_ITS | Encounter Summary ---
Author Organization [facility] Address [address] [place] [address] Phone Care Team Providers Care Systems Support Engineer Name Role Phone Ed Hunt MD Unavailable [phone] Sadnra Martínez DIALYSIS REGISTERED NURSE Unavailable Brodie Multani MD Unavailable Carey Mckeon MD Unavailable Main Sanchez MD Unavailable Unavailable KymberlyLarry dela cruz MD Unavailable [phone] Carey Mckeon MD Primary Care Provider [phone] Carey Mckeon MD Unavailable [phone] Jean Boone MD Unavailable [phone] Encounter Details Date Type Department Care Team (Latest Contact Info) Description 07/01/2021 Transcribe Orders Virtual Department 30 [place] [address] Paolo Jha MD [address] [place] [address] [email or web address] Dysphagia, unspecified type (Primary Dx) Social History Tobacco Use [...] Description 07/04/2025 9:40 AM EST Office Visit [facility] Internal Medicine 14 [facility] [address] [place] [address] Carey Mckeon MD [address] [address] 08/24/2025 7:45 AM EST Appointment [facility] [address] 3rd [place] [address] Shimon Prince MD [address] [place] [address] [email or web address] 11/26/2025 11:20 AM EDT Office Visit [facility] Internal Medicine [address] [address] Carey Mckeon MD [address] [address] 12/25/2025 11:40 AM EDT Office Visit [facility] 30 [place] [address] Jean Boone MD [address] [place] [address] documented as of this encounter Results * FL BARIUM SWALLOW ESOPHAGRAM DOUBLE CONTRAST (07/11/2021 10:00 AM EST) Anatomical Region Laterality Modality Chest Computed Radiogr aphy 07/11/2021 10:3 6 AM EST Impressions 07/11/2021 10:44 AM EST Slight increase in size of chronic Zenker's diverticulum since 2016 without aspiration or significant esophageal dysmotility or gross mucosal pathology demonstrated. Normal spontaneous gastroesophageal reflux and small chronic stable hiatal hernia. FLUOROSCOPY TIME: min. 52 sec; 113 IMAGES/FRAMES POS - [id number] Narrative 07/11/2021 10:44 AM EST COMPARISON: 05/27/2016 FINDINGS: A preliminary lateral view the neck reveals no significant interval changes. A standard double contrast study was performed and recorded on digital rapid sequence, spot, and overhead views. Following ingestion of the contrast mixture deglutition was assessed fluoroscopically. There is a chronically prominent prominent cricopharyngeus muscle impression bordering achalasia with minimal interval increase in size of the chronic Zenker's diverticulum, currently measuring approximately 14 mm in width, 18 mm in length, and 11 mm in AP dimension with the neck measuring approximately 6 mm in length. No aspiration or nasopharyngeal reflux identified. No abnormal propulsive waves demonstrated in the thoracic esophagus. Small chronic sliding-type hiatal hernia with minimal spontaneous gastroesophageal reflux but no esophageal mucosal ulceration or stricture apparent. Procedure Note Paolo Ayala MD - 07/11/2021 COMPARISON: 05/27/2016 FINDINGS: A preliminary lateral view the neck reveals no significant intervalchanges. A standard double contrast study was performed and recorded ondigital rapid sequence, spot, and overhead views. Following ingestion of the contrast mixture deglutition was assessedfluoroscopically. There is a chronically prominent prominentcricopharyngeus muscle impression bordering achalasia with minimalinterval increase in size of the chronic Zenker's diverticulum, currentlymeasuring approximately 14 mm in width, 18 mm in length, and 11 mm in APdimension with the neck measuring approximately 6 mm in length. Noaspiration or nasopharyngeal reflux identified. No abnormal propulsivewaves demonstrated in the thoracic esophagus. Small chronic sliding-typehiatal hernia with minimal spontaneous gastroesophageal reflux but noesophageal mucosal ulceration or stricture apparent. IMPRESSION: Slight increase in size of chronic Zenker's diverticulum since 2015without aspiration or significant esophageal dysmotility or gross mucosalpathology demonstrated. Normal spontaneous gastroesophageal reflux andsmall chronic stable hiatal hernia. FLUOROSCOPY TIME: min. 52 sec; 113 IMAGES/FRAMES POS - [id number] Paolo Jha MD [facility] Final Resu lt documented in this encounter Visit Diagnoses Diagnosis Dysphagia, unspecified type- Primary Dysphagia, unspecified type documented in this encounter Additional Health Concerns Infection Onset Date Last Indicated Resolved Time CoV-Exposed Comment:Recent close contact documented in the COVID-19 Amb Triage Form 10/14/2021 10/16/2021 10/25/2021 1:22 AM E DT CoV-Risk Comment:Per Ambulatory Triage Form 10/17/2021 10/17/202110/28 1:21 AM EDT CoV-Presumed 12/14/2021 12/14/2021 01/04/2022 1:22 AM EDT documented as of this encounter Care Teams Systems Support Engineer Relationship Specialty Start Date End Date Carey Mckeon MD [address] [place] [address] PCP - General 08/05/17 Ed Hunt MD [address] [place] [address] Historical LMR Provider 05/17/17 08/09/21 Sandra Martínez CNP [address] [place] [address] Historical LMR Provider 05/17/17 Brodie Multani MD [address] [place] [address], [facility] [place] [address] Historical LMR Provider 05/17/17 08/09/21 Carey Mckeon MD [address] [place], [place] [address], [place] [address] [email or web address] Historical LMR Provider 05/17/17 Main Sanchez MD Historical LMR Provider 05/17/17 08/09/21 Larry Traylor MD [address] [place] [address] Historical LMR Provider 05/17/17 Carey Mckeon MD 14 [facility] [address] [place] [address] [email or web address] Insurance Assigned Provider 11/06/23 Jean Boone MD [address] [place] [address] [email or web address] Medical Oncology 11/15/24 documented as of this encounter Additional Source Comments The information contained in this document represents components of the legal health record. It is not the complete legal health record.[facility]
--- OUTSIDE RECORDS SUMMARY | 2025-06-26 16:45 | XMS_ITS | Encounter Summary ---
Author Organization [facility] Address [address] [place] [address] [place] [address] Phone Care Team Providers Care Lease Administration Supervisor Name Role Phone Sandra Martínez ZYGLO INSPECTOR Unavailable + [phone] Carey Mckeon MD Unavailable [phone] Carey Mckeon MD Primary Care Provider + [phone] Carey Mckeon MD Unavailable [phone] Jean Boone MD Unavailable [phone] Reason for Referral * MRI/CAT Scan - Closed Specialty Diagnoses / Procedures Referred By Contac t Referred To Contact Radiology Diagnoses Diverticulum of esophagus, acquired Nose polyp Procedures CT Face Aleksey Naranjo MD Phone: tel: fax: [email or web address] Referral ID Status Reason Start Date Expiration Date Visits Re quested Visits Authorized [id number] Closed 03/12/2022 03/12/2023 1 1 Encounter Details Date Type Department Care Team (Latest Contact Info) Description 03/12/2022 Transcribe Orders Virtual Department 30 [place] [address] Aleksey Naranjo MD [address] [place] [address], [address] [place] [address] [email or web address] Diverticulum of esophagus, acquired (Primary Dx); Nose polyp Social History Tobacco Use Types Packs/Day Years [...] Description 07/04/2025 9:40 AM EST Office Visit [facility] Internal Medicine [address] [address] Caery Mckeon MD [address] [place] [address] 08/24/2025 7:45 AM EST Appointment [facility] [place] [address] Shimon Prince MD [address] [place] [address] [email or web address] 11/26/2025 11:20 AM EDT Office Visit [facility] Internal Medicine [address] [address] Carey Mckeon MD [address] [place] [address] 12/25/2025 11:40 AM EDT Office Visit [facility] at [address] [address] Jean oBone MD [address] [place] [address] documented as of this encounter Results * CT FACE WITHOUT CONTRAST (04/07/2022 10:31 AM EDT) Anatomical Region Laterality Modality Face Computed Tomogra phy 04/07/2022 11:2 6 AM EDT Impressions 04/07/2022 11:56 AM EDT 1.Opacification of the right posterior ethmoid air cells with mucoperiosteal thickening at the right sphenoid sinus. Partial occlusion of the right sphenoethmoid recess. Narrative 04/07/2022 11:[address] FACE WITHOUT CONTRAST TECHNIQUE: Multidetector-row CT of the face was performed without intravenous contrast using tailored dose modulation techniques. Images were reconstructed in the axial, coronal, and sagittal planes. COMPARISON: MRI brain 12/05/2021 FINDINGS: Aerodigestive Tract: The mucosa appears symmetrical. Salivary Glands: No obvious lesion is present. Paranasal Sinuses and Mastoids: There is opacification of the right posterior ethmoid air cells with mucoperiosteal thickening of the right sphenoid sinus. The right sphenoethmoid recess is partially occluded.. No osseous destruction demonstrated. Bilateral joby bullosa are demonstrated, right greater than left. The ostiomeatal complexes are patent bilaterally. The paranasal sinuses are otherwise well- aerated. The mastoids are well-aerated. The nasal septum is mildly undulating. Petrous Apices, Clivus, Basilar Cisterns, Cavernous Sinuses, Sella, Jugular Foramina and Poststyloid Parapharyngeal Spaces: No skull base lesion. Lymph Nodes: There are no nodes meeting CT criteria for pathologic involvement. Brain and Orbits: Atherosclerotic calcification of the carotid siphon. No detectable abnormality is present in the imaged portions of the brain and orbits within limitations of nontargeted renal. Bones and Soft Tissues: Degenerative changes are present in the cervical spine. Procedure Note Kary Gleason MD - 04/07/2022 CT FACE WITHOUT CONTRAST TECHNIQUE: Multidetector-row CT of the face was performed withoutintravenous contrast using tailored dose modulation techniques. Imageswere reconstructed in the axial, coronal, and sagittal planes. COMPARISON: MRI brain 12/05/2021 FINDINGS: Aerodigestive Tract: The mucosa appears symmetrical. Salivary Glands: No obvious lesion is present. Paranasal Sinuses and Mastoids: There is opacification of the rightposterior ethmoid air cells with mucoperiosteal thickening of the rightsphenoid sinus. The right sphenoethmoid recess is partially occluded.. Noosseous destruction demonstrated. Bilateral joby bullosa aredemonstrated, right greater than left. The ostiomeatal complexes arepatent bilaterally. The paranasal sinuses are otherwise well- aerated. Themastoids are well-aerated. The nasal septum is mildly undulating. Petrous Apices, Clivus, Basilar Cisterns, Cavernous Sinuses, Sella, Jugular Foramina and Poststyloid Parapharyngeal Spaces: No skull baselesion. Lymph Nodes: There are no nodes meeting CT criteria for pathologicinvolvement. Brain and Orbits: Atherosclerotic calcification of the carotid siphon. Nodetectable abnormality is present in the imaged portions of the brain andorbits within limitations of nontargeted renal. Bones and Soft Tissues: Degenerative changes are present in the cervicalspine. IMPRESSION: 1.Opacification of the right posterior ethmoid air cells withmucoperiosteal thickening at the right sphenoid sinus. Partial occlusionof the right sphenoethmoid recess. Aleksey Naranjo MD IM CT HEAD/NECK Final Result documented in this encounter Visit Diagnoses Diagnosis Diverticulum of esophagus, acquired- Primary Nose polyp Unspecified nasal polyp Diverticulum of esophagus, acquired Nose polyp Unspecified nasal polyp documented in this encounter Care Teams Lease Administration Supervisor Relationship Specialty Start Date End Date Carey Mckeon MD 14 [facility] [address] [place] [address] PCP - General 08/05/17 Sandra Martínez, JABARI [address] [place] [address] [address] [place] [address] [email or web address] Historical LMR Provider 05/17/17 Carey Mckeon MD [address] [place] [address] [place] [address] [email or web address] Historical LMR Provider 05/17/17 Carey Mckeon MD [address] [place] [address] [place] [address] [email or web address] Insurance Assigned Provider 11/06/23 Jean Boone MD [address] [place] [address] [email or web address] Medical Oncology 11/15/24 documented as of this encounter Additional Source Comments The information contained in this document represents components of the legal health record. It is not the complete legal health record.[facility]
--- OUTSIDE RECORDS SUMMARY | 2025-06-26 16:45 | XMS_ITS | Encounter Summary ---
Author Organization [facility] Address [address] [place] [address] Phone Care Team Providers Care Plush Weaver Name Role Phone Sandra Martínez EQUIPMENT MECHANIC Unavailable [phone] Carey Mckeon MD Unavailable [phone] Carey Mckeon MD Primary Care Provider + [phone] Carey Mckeon MD Unavailable [phone] Jean Boone MD Unavailable [phone] Encounter Details Date Type Department Care Team (Late st Contact Info) Description 08/20/2021 Procedure Pass OR Admitting Dept - Virtual Department [address] [place] [address] Social History Tobacco Use Types Packs/Day Years [...] Description 07/04/2025 9:40 AM EST Office Visit [facility] Internal Medicine 14 [facility] [address] [place], [place] [phone] Carey Mckeon MD 14 [facility] [address] [place] [address] [email or web address] 08/24/2025 7:45 AM EST Appointment [facility] [place] [address] 3rd [place] [address] Shimon Prince MD [address] [place] [address] [email or web address] 11/26/2025 11:20 AM EDT Office Visit [facility] Internal Medicine 14 [facility] [address] [place] [address] Carey Mckeon MD [address] [place] [address] 12/25/2025 11:40 AM EDT Office Visit [facility] at [facility] 30 [place] [address] Jean Boone MD [address] [place] [address] documented as of this encounter Visit Diagnoses [...] documented as of this encounter Care Teams Plush Weaver Relationship Specialty Start Date End Date Carey Mckeon MD 14 [facility] [address] [place] [address] PCP - General 08/05/17 Sandra Martínez, JABARI 14 [facility] [address] [place] [address] [email or web address] Historical LMR Provider 05/17/17 Carey Mckeon MD [address] [place] [address] [email or web address] Historical LMR Provider 05/17/17 Carey Mckeon MD [address] [place] [address] [email or web address] Insurance Assigned Provider 11/06/23 Jean Boone MD [address] [place] [address] [email or web address] Medical Oncology 11/15/24 documented as of this encounter Additional Source Comments The information contained in this document represents components of the legal health record. It is not the complete legal health record.[facility]
--- OUTSIDE RECORDS SUMMARY | 2025-06-26 16:45 | XMS_ITS | Encounter Summary ---
Author Organization [facility] Address [address] [place] [address] Phone Care Team Providers Care Manager Discovery Name Role Phone Ed Hunt MD Unavailable Sandra Martínez CORRUGATOR OPERATOR HELPER Unavailable [phone] Brodie Multani MD Unavailable [phone] Carey Mckeon MD Unavailable [phone] Main Sanchez MD Unavailable Unavailable KymberlyLarry dela cruz MD Unavailable [phone] Carey Mckeon MD Primary Care Provider [phone] Carey Mckeon MD Unavailable [phone] Jean Boone MD Unavailable [phone] Encounter Details Date Type Department Care Team (Late st Contact Info) Description 06/17/2020 Procedure Pass [facility] 30 [place] [address] Social History Tobacco Use Types Packs/Day Years [...] Description 07/04/2025 9:40 AM EST Office Visit [facility] Internal Medicine [address] [address] Carey Mckeon MD [address] [place] [address] [email or web address] 08/24/2025 7:45 AM EST Appointment [facility] [place] [facility] 3rd [place] [address] Shimon Prince MD [address] [place] [address] [email or web address] 11/26/2025 11:20 AM EDT Office Visit [facility] Internal Medicine [address] [place] [address] Carey Mckeon MD [address] [place] [address] [email or web address] 12/25/2025 11:40 AM EDT Office Visit [facility] at [address] [address] Jean Boone MD [address] [place] [address] [email or web address] documented as of this encounter Visit Diagnoses [...] as of this encounter Care Teams Manager Discovery Relationship Specialty Start Date End Date Carey Mckeon MD [address] [place] [address] PCP - General 08/05/17 Ed Hunt MD [address] [place] [address], [address] [place] [address] [email or web address] Historical LMR Provider 05/17/17 08/09/21 Sandra Martínez, CORRUGATOR OPERATOR HELPER [address] [place] [address] Historical LMR Provider 05/17/17 Brodie Multani MD [address] [place] [address], 2nd [place] [address] Historical LMR Provider 05/17/17 08/09/21 Carey Mckeon MD [address] [place] [address] Historical LMR Provider 05/17/17 Main Sanchez MD Historical LMR Provider 05/17/17 08/09/21 Larry Traylor MD [address] [place] [address] Historical LMR Provider 05/17/17 Carey Mckeon MD [address] [place] [address] Insurance Assigned Provider 11/06/23 Jean Boone MD [address] [place] [address] [email or web address] Medical Oncology 11/15/24 documented as of this encounter Additional Source Comments The information contained in this document represents components of the legal health record. It is not the complete legal health record.[facility]
--- OUTSIDE RECORDS SUMMARY | 2025-06-26 16:45 | XMS_ITS | Encounter Summary ---
Author Organization [facility] Address [address] [place] [address] Phone Care Team Providers Care Legal Consultant Name Role Phone Ed Hunt MD Unavailable Sandra Martínez CHARTER PILOT Unavailable [phone] Brodie Multani MD Unavailable Carey Mckeon MD Unavailable Main Sanchez MD Unavailable Unavailable Larry Traylor MD Unavailable Carey Mckeon MD Primary Care Provider [phone] Carey Mckeon MD Unavailable Jean Boone MD Unavailable [phone] Encounter Details Date Type Department Care Team (Late st Contact Info) Description 01/28/2021 Prep for Surgery [facility] Orthopedics & Sports Medicine [address] [place] [address] Hilda Krueger MD [address] [place] [address] Orthopedics & Sports Medicine, [facility] [place] [address] Social History Tobacco Use Types Packs/Day Years [...] Description 07/04/2025 9:40 AM EST Office Visit [facility] Internal Medicine 14 [facility] [address] [place] [address] Carey Mckeon MD [address] [address] 08/24/2025 7:45 AM EST Appointment [facility] [address] [place] [address] 3rd [place] [address] Shimon Prince MD [address] [place] [address] [email or web address] 11/26/2025 11:20 AM EDT Office Visit [facility] Internal Medicine 14 [facility] [address] [place] [address] Carey Mckeon MD [address] [place] [address] 12/25/2025 11:40 AM EDT Office Visit [facility] Center at [address] [address] Jean Boone MD [address] [place] [address] documented as of this encounter Visit Diagnoses [...] documented as of this encounter Care Teams Legal Consultant Relationship Specialty Start Date End Date Carey Mckeon MD [address] [place] [address] PCP - General 08/05/17 Ed Hunt MD [address] [place] [address], [address] [place] [address] Historical LMR Provider 05/17/17 08/09/21 Sandra Martínez CNP [address] [place] [address] Historical LMR Provider 05/17/17 Brodie Multani MD [address] [place] [address], 2nd [place] [address] Historical LMR Provider 05/17/17 08/09/21 Carey Mckeon MD [address] [place] [address] Historical LMR Provider 05/17/17 Main Sanchez MD Historical LMR Provider 05/17/17 08/09/21 Larry Traylor MD [address] [place] [address] Historical LMR Provider 05/17/17 Carey Mckeon MD [address] [place] [address] [email or web address] Insurance Assigned Provider 11/06/23 Jean Boone MD [address] [place] [address] [email or web address] Medical Oncology 11/15/24 documented as of this encounter Additional Source Comments The information contained in this document represents components of the legal health record. It is not the complete legal health record.[facility]
--- OUTSIDE RECORDS SUMMARY | 2025-06-26 16:45 | XMS_ITS | Encounter Summary ---
Author Organization [facility] Address [address] [place] [address] Phone Care Team Providers Care Financial Compliance Officer Name Role Phone Ed Hunt MD Unavailable [phone] Sandra Martínez HOUSE DETECTIVE Unavailable [phone] Brodie Multani MD Unavailable Carey Mckeon MD Unavailable Main Sanchez MD Unavailable Unavailable Larry Traylor MD Unavailable [phone] Carey Mckeon MD Primary Care Provider [phone] Carey Mckeon MD Unavailable [phone] Jean Boone MD Unavailable [phone] Encounter Details Date Type Department Care Team (Late st Contact Info) Description 07/21/2021 Procedure Pass [address] [place] [address] Social History Tobacco Use Types Packs/Day Years [...] - Inhaled Oxygen Concentration - - Weight 70.3 kg (155 lb) 07/24/2021 5:01 PM EST Height 177.8 cm (5' 10 ) 07/24/2021 5:01 PM EST Body Mass Index 22.24 07/24/2021 5:01 PM EST documented in this encounter Plan of Treatment Upcoming Encounters Date Type Department Care Team (Late st Contact Info) Description 07/04/2025 9:40 AM EST Office Visit [facility] Internal Medicine 14 [facility] [address] [place] [address] Carey Mckeon MD 14 [facility] [address] [place] [address] 08/24/2025 7:45 AM EST Appointment [facility] [address] [place] [address] Shimon Prince MD [address] [place] [address] [email or web address] 11/26/2025 11:20 AM EDT Office Visit [facility] Internal Medicine 14 [facility] [address] [place] [address] Carey Mckeon MD 14 [facility] [address] [place] [address] 12/25/2025 11:40 AM EDT Office Visit [facility] at [address] [address] Jean Boone MD [address] [place] [address] documented as of this encounter Visit Diagnoses [...] documented as of this encounter Care Teams Financial Compliance Officer Relationship Specialty Start Date End Date Carey Mckeon MD [address] [place] [address] [place] [address] PCP - General 08/05/17 Ed Hunt MD [address] [place] [address], [address] [place] [address] Historical LMR Provider 05/17/17 08/09/21 Sandra Martínez CNP [address] [place] [address] Historical LMR Provider 05/17/17 Brodie Multani MD [address] [place] [address], 2nd [place] [address] Historical LMR Provider 05/17/17 08/09/21 Carey Mckeon MD [address] [place] [address] [place] [address] Historical LMR Provider 05/17/17 Main Sanchez MD Historical LMR Provider 05/17/17 08/09/21 Larry Traylor MD [address] [place] [address] Historical LMR Provider 05/17/17 Carey Mckeon MD 14 [facility] [address] [place] [address] [email or web address] Insurance Assigned Provider 11/06/23 Jean Boone MD [address] [place] [address] [email or web address] Medical Oncology 11/15/24 documented as of this encounter Additional Source Comments The information contained in this document represents components of the legal health record. It is not the complete legal health record.[facility]
--- OUTSIDE RECORDS SUMMARY | 2025-06-26 16:45 | XMS_ITS | Encounter Summary ---
Author Organization [facility] Address [address] [place] [address] Phone Care Team Providers Care Care Connector Name Role Phone Carey Mckeon MD Primary Care Provider Encounter Details Date Type Department Care Team (Late st Contact Info) Description 12/27/2024 Documentation Only [facility], [address] [place] [phone] Juwan [place], [place] [address] [place] [phone] Social History Tobacco Use Types Packs/Day Years [...] on filedocumented in this encounter Care Teams Care Connector Relationship Specialty Start Date End Date Carey Mckeon MD [address] [place] [address] [address] [place] [address] PCP - General Internal Medicine 12/27/24 documented as of this encounter
--- OUTSIDE RECORDS SUMMARY | 2025-06-26 16:45 | XMS_ITS | Encounter Summary ---
Author Organization [facility] Address [address] [place] [address] Phone Care Team Providers Care Corporate Director Talent Assessment Name Role Phone Sandra Martínez CASTING WHEEL OPERATOR Unavailable [phone] Carey Mckeon MD Unavailable [phone] Carey Mckeon MD Primary Care Provider [phone] Carey Mckeon MD Unavailable [phone] Jean Boone MD Unavailable [phone] Encounter Details Date Type Department Care Team (Late st Contact Info) Description 06/08/2025 Orders Only [facility] at [address] [address] Provider, MD [facility] [place] [address] Social History Tobacco Use Types Packs/Day Years [...] Description 07/04/2025 9:40 AM EST Office Visit [facility] Internal Medicine [address] [address] Carey Mckeon MD [address] [place] [address] [email or web address] 08/24/2025 7:45 AM EST Appointment [facility] [place] [address] [place] [address] 3rd [place] [address] Shimon Prince MD [address] [place] [address] [email or web address] 11/26/2025 11:20 AM EDT Office Visit [facility] Internal Medicine [address] [address] Carey Mckeon MD [address] [place] [address] 12/25/2025 11:40 AM EDT Office Visit [facility] at [address] [address] Jean Boone MD [address] [place] [address] documented as of this encounter Procedures Procedure Name Priority Date/Time Associated Diagnosis Comments OUTSIDE IMAGING Routine 06/08/2025 7:36 AM EST documented in this encounter Results * Outside Imaging Report Only (06/08/2025 7:36 AM EST) us Historical Provider IMManasa XR CHEST Final Res ult documented in this encounter Visit Diagnoses Not on filedocumented in this encounter Additional Health Concerns Assessment Noted Time PHQ-2 Depression Total Score: 2 11/16/19 25 1:52 PM EDT documented as of this encounter Care Teams Corporate Director Talent Assessment Relationship Specialty Start Date End Date Carey Mckeon MD [address] [place] [address] PCP - General 08/05/17 Sandra Martínez, CASTING WHEEL OPERATOR [address] [place] [address] Historical LMR Provider 05/17/17 Carey Mckeon MD [address] [place] [address] Historical LMR Provider 05/17/17 Carey Mckeon MD [address] [place] [address] Insurance Assigned Provider 11/06/23 Jean Boone MD [address] [place] [address] Medical Oncology 11/15/24 documented as of this encounter Additional Source Comments The information contained in this document represents components of the legal health record. It is not the complete legal health record.[facility]
--- OUTSIDE RECORDS SUMMARY | 2025-06-26 16:45 | XMS_ITS | Encounter Summary ---
Author Organization [facility] Address [address] [place] [address] Phone Care Team Providers Care Carrier Loader Name Role Phone Nayeligi Sandra Nelli HOSE MENDER Unavailable Carey Mckeon MD Unavailable [phone] Carey Mckeon MD Primary Care Provider [phone] Carey Mckeon MD Unavailable [phone] Jean Boone MD Unavailable [phone] Encounter Details Date Type Department Care Team (Latest Contact Info) Description 01/31/2024 Transcribe Orders [facility] 30 [place] [address] Katya Camacho CNP 10 [place] [address] [email or web address] Anemia, unspecified type (Primary Dx) Social History Tobacco [...] Description 07/04/2025 9:40 AM EST Office Visit [facility] Internal Medicine [address] [address] Carey Mckeon MD [address] [place] [address] 08/24/2025 7:45 AM EST Appointment [facility] [place] [address] Shimon Prince MD [address] [place] [address] [email or web address] 11/26/2025 11:20 AM EDT Office Visit [facility] Internal Medicine [address] [address] Carey Mckeon MD [address] [address] 12/25/2025 11:40 AM EDT Office [facility] Center at [facility] 30 [place] [address] Jean Boone MD 30 [place] [address] [email or web address] documented as of this encounter Visit Diagnoses Diagnosis Anemia, unspecified type- Primary documented in this encounter Additional Health Concerns Assessment Noted Time PHQ-2 Depression Total Score: 1 07/21/20 23 3:34 PM EST documented as of this encounter Care Teams Carrier Loader Relationship Specialty Start Date End Date Carey Mckeon MD [address] [place] [address] [email or web address] PCP - General 08/05/17 Sandra Martínez CNP [address] [place] [address] [email or web address] Historical LMR Provider 05/17/17 Carey Mckeon MD [address] [place] [address] Historical LMR Provider 05/17/17 Carey Mckeon MD [address] [place] [address] Insurance Assigned Provider 11/06/23 Jean Boone MD [address] [place] [address] Medical Oncology 11/15/24 documented as of this encounter Additional Source Comments The information contained in this document represents components of the legal health record. It is not the complete legal health record.[facility]
--- OUTSIDE RECORDS SUMMARY | 2025-06-26 16:45 | XMS_ITS | Encounter Summary ---
Author Organization [facility] Address [address] [place] [address] Phone Care Team Providers Care Information Security Analyst Name Role Phone Nayeligi Sandra Nelli VENEER SLICING MACHINE OPERATOR Unavailable Carey Mckeon MD Unavailable [phone] Carey Mckeon MD Primary Care Provider [phone] Carey Mckeon MD Unavailable [phone] Jean Boone MD Unavailable [phone] Encounter Details Date Type Department Care Team (Latest Contact Info) Description 03/06/2024 Transcribe Orders [facility] [address] [address] Katya Camacho CNP [address] [place], [place] [phone] [email or web address] Anemia, unspecified type (Primary Dx) Social History [...] Description 07/04/2025 9:40 AM EST Office Visit [facility] Internal Medicine [address] [address] Carey Mckeon MD [address] [place] [address] 08/24/2025 7:45 AM EST Appointment [facility] [place] [address] Shimon Prince MD [address] [place] [address] [email or web address] 11/26/2025 11:20 AM EDT Office Visit [facility] Internal Medicine [address] [address] Carey Mckeon MD [address] [address] 12/25/2025 11:40 AM EDT Office Visit [facility] Center at [facility] 30 [place] [address] Jean Boone MD 30 [place] [address] [email or web address] documented as of this encounter Results * (ABNORMAL) CBC and differential (03/06/2024 2:20 PM EDT) WBC 7.06 4.00 - 11.00 K/uL [facility] RBC 3.37(L) 3.90 - 5.69 M/uL [facility] HGB 10.3(L) 12.4 - 17.3 g/dL [facility] HCT 32.6(L) 37.0 - 51.0 % [facility] PLT 222 140 - 430 K/uL [facility] MCV 96.7 78.0 - 97.0 fL [facility] MCH 30.6 25.0 - 33.0 pg [facility] MCHC 31.6(L) 32.0 - 36.0 g/dL [facility] RDW 12.5 11.0 - 15.0 % [facility] MPV 11.5 8.4 - 12.8 fl [facility] DIFF METHOD Auto [facility] NEUTS 67.4 43.0 - 75.0 % [facility] LYMPHS 15.3(L) 18.2 - 47.4 % [facility] MONOS 6.8 4.00 - 11.00 % [facility] EOS 9.8(H) 0.0 - 8.0 % [facility] BASOS 0.4 0.0 - 2.0 % [facility] Granulocytes, immature (%) 0.3 0.0 - 0.9 % [facility] ABSOLUTE NEUTS 4.76 1.80 - 7.70 K/uL [facility] ABSOLUTE LYMPHS 1.08 1.00 - 3.10 K/uL [facility] ABSOLUTE MONOS 0.48 0.20 - 0.80 K/uL [facility] ABSOLUTE EOS 0.69 0.00 - 0.80 K/uL [facility] ABSOLUTE BASOS 0.03 0.00 - 0.09 K/uL [facility] Granulocytes, immature 0.02 0.00 - 0.05 K/uL [facility] Blood 03/06/2024 2:20 PM EDT 03/06/2024 2:25 PM EDT us Katya Camacho VENEER SLICING MACHINE OPERATOR LAB BLOOD BKR ORDERABLES F inal Result [facility] [address] [place] [address] documented in this encounter Visit Diagnoses Diagnosis Anemia, unspecified type- Primary documented in this encounter Additional Health Concerns Assessment Noted Time PHQ-2 Depression Total Score: 1 07/21/20 23 3:34 PM EST documented as of this encounter Care Teams Information Security Analyst Relationship Specialty Start Date End Date Carey Mckeon MD [address] [place] [address] PCP - General 08/05/17 Sandra Martínez CNP [address] [place] [address] Historical LMR Provider 05/17/17 Carey Mckeon MD [address] [place] [address] Historical LMR Provider 05/17/17 Carey Mckeon MD [address] [place] [address] Insurance Assigned Provider 11/06/23 Jean Boone MD [address] [place] [address] Medical Oncology 11/15/24 documented as of this encounter Additional Source Comments The information contained in this document represents components of the legal health record. It is not the complete legal health record.[facility]
--- OUTSIDE RECORDS SUMMARY | 2025-06-26 16:45 | XMS_ITS | Encounter Summary ---
Author Organization [facility] Address [address] [place] [address] Phone Care Team Providers Care Evs Attendant Name Role Phone Ed Hunt MD Unavailable Sandra Martínez RELIEF MAN Unavailable [phone] Brodie Multani MD Unavailable Carey Mckeon MD Unavailable Main Sanchez MD Unavailable Unavailable Larry Traylor MD Unavailable Carey Mckeon MD Unavailable Carey Mckeon MD Primary Care Provider [phone] Carey Mckeon MD Unavailable Jean Boone MD Unavailable [phone] Encounter Details Date Type Department Care Team (Late st Contact Info) Description 12/27/2018 Ancillary Orders [facility], X-Ray - [address] [address] Agustin David MD [address] [place] [address] [email or web address] Availigent Sacroiliitis, not elsewhere classified Social History Tobacco Use Types Packs/Day Years [...] 9:40 AM EST Office Visit [facility] Internal Medicine 14 [facility] [address] [place] [address] Carey Mckeon MD 14 [facility] [address] [place] [address] 08/24/2025 7:45 AM EST Appointment [facility] [address] [place] [address] 3[address] [place] [address] Shimon Prince MD [address] [place] [address] [email or web address] 11/26/2025 11:20 AM EDT Office Visit [facility] Internal Medicine [address] [address] Carey Mckeon MD [address] [address] 12/25/2025 11:40 AM EDT Office Visit [facility] at [facility] 30 [place] [address] Jean Boone MD [address] [place] [address] documented as of this encounter Results * XR PELVIS 1 VIEW (12/27/2018 3:42 PM EDT) Anatomical Region Laterality Modality Pelvis Radiographic Elizabeth ging 12/27/2018 3:47 PM EDT Impressions 12/27/2018 3:50 PM EDT Progressive degenerative changes in the lumbar spine. 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 S/S: Sacroiliitis clinically, degenerative lumbar disc disease, lumbar spondylosis POS - [id number] Narrative 12/27/2018 3:50 PM EDT COMPARISON: [facility] 04/19/2007 FINDINGS: A supine film of the pelvis is obtained. There are progressive degenerative changes evident in the lower lumbar spine with disc space narrowing and bony spurring evident. Degenerative changes are evident of mild degree in the left hip and more prominently on the right with acetabular spurring. Mild to moderate sclerosis and possible bony bridging in the mid to upper SI joints bilaterally is noted and is unchanged. The inferior SI joints are unremarkable bilaterally. Procedure Note Berny Garcia MD - 12/27/2018 COMPARISON: [facility] 04/19/2007 FINDINGS: A supine film of the pelvis is obtained. There are progressive degenerative changes evident in the lower lumbarspine with disc space narrowing and bony spurring evident. Degenerative changes are evident of mild degree in the left hip and moreprominently on the right with acetabular spurring. Mild to moderate sclerosis and possible bony bridging in the mid to upperSI joints bilaterally is noted and is unchanged. The inferior SI jointsare unremarkable bilaterally. IMPRESSION: Progressive degenerative changes in the lumbar spine. 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 S/S: Sacroiliitis clinically, degenerative lumbar disc disease, lumbarspondylosis POS - [id number] us Agustin David MD IMG XR PELVIS Final R esult documented in this encounter Visit Diagnoses Diagnosis Sacroiliitis, not elsewhere classified Sacroiliitis, not elsewhere classified documented in this encounter Additional Health Concerns Infection Onset Date Last Indicated Resolved Time CoV-Exposed Comment:Recent close contact documented in the COVID-19 Amb Triage Form 10/14/2021 10/16/2021 10/25/2021 1:22 AM E DT CoV-Risk Comment:Per Ambulatory Triage Form 10/17/2021 10/17/202110/28 1:21 AM EDT CoV-Presumed 12/14/2021 12/14/2021 01/04/2022 1:22 AM EDT documented as of this encounter Care Teams Evs Attendant Relationship Specialty Start Date End Date Carey Mckeon MD [address] [place] [address] [place] [address] PCP - General 08/05/17 Ed Hunt MD [address] [place] [address], [address] [place] [address] Historical LMR Provider 05/17/17 08/09/21 Sandra Martínez CNP [address] [place] [address] [place] [address] Historical LMR Provider 05/17/17 Brodie Multani MD [address] [place] [address], 2[address] [place] [address] Historical LMR Provider 05/17/17 08/09/21 Carey Mckeon MD [address] [place] [address] [place] [address] Historical LMR Provider 05/17/17 Main Sanchez MD Historical LMR Provider 05/17/17 08/09/21 Larry Traylor MD [address] [place] [address] Historical LMR Provider 05/17/17 Carey Mckeon MD [address] [place] [address] [place] [address] [email or web address] Insurance Assigned Provider 07/03/17 02/11/19 Carey Mckeon MD [address] [place] [address] [place] [address] [email or web address] Insurance Assigned Provider 11/06/23 Jean Boone MD [address] [place] [address] [email or web address] Medical Oncology 11/15/24 documented as of this encounter Additional Source Comments The information contained in this document represents components of the legal health record. It is not the complete legal health record.[facility]
--- OUTSIDE RECORDS SUMMARY | 2025-06-26 16:45 | XMS_ITS | Encounter Summary ---
Author Organization [facility] Address [address] [place] [address] Phone Care Team Providers Care Obedience Trainer Name Role Phone Sandra Martínez RECREATION WORKER Unavailable + [phone] Carey Mckeon MD Unavailable [phone] Carey Mckeon MD Primary Care Provider [phone] Carey Mckeon MD Unavailable [phone] Jean Boone MD Unavailable [phone] Encounter Details Date Type Department Care Team (Late st Contact Info) Description 03/12/2022 Procedure Pass [facility], Ct Scan - [address] [address] Social History Tobacco Use Types Packs/Day Years [...] Description 07/04/2025 9:40 AM EST Office Visit [facility] Internal Medicine 14 [facility] [address] [place] [address] Carey Mckeon MD 14 [facility] [address] [place], [place] [address] 08/24/2025 7:45 AM EST Appointment [facility] [place] [address] 3rd [place] [address] Shimon Prince MD [address] [place] [address] [email or web address] 11/26/2025 11:20 AM EDT Office Visit [facility] Internal Medicine [address] [address] Carey Mckeon MD [address] [address] 12/25/2025 11:40 AM EDT Office Visit [facility] [address] [place] [address] Jean Boone MD [address] [place] [address] documented as of this encounter Visit Diagnoses Not on filedocumented in this encounter Care Teams Obedience Trainer Relationship Specialty Start Date End Date Carey Mckeon MD [address] [address] PCP - General 08/05/17 Sandra Martínez, JABARI [address] [address] Historical LMR Provider 05/17/17 Carey Mckeon MD [address] [address] [email or web address] Historical LMR Provider 05/17/17 Carey Mckeon MD [address] [place] [address] [address] [place] [address] [email or web address] Insurance Assigned Provider 11/06/23 Jean Boone MD [address] [place] [address] [email or web address] Medical Oncology 11/15/24 documented as of this encounter Additional Source Comments The information contained in this document represents components of the legal health record. It is not the complete legal health record.[facility]
--- OUTSIDE RECORDS SUMMARY | 2025-06-26 16:45 | XMS_ITS | Encounter Summary ---
Author Organization [facility] Address [address] [place] [address] Phone Care Team Providers Care Bakery Machine Mechanic Name Role Phone Ed Hunt MD Unavailable [phone] Sandra Martínez FUEL ISLAND ATTENDANT Unavailable [phone] Brodie Multani MD Unavailable [phone] Carey Mckeon MD Unavailable [phone] Main Sanchez MD Unavailable Unavailable Larry Traylor MD Unavailable Carey Mckeon MD Unavailable [phone] Carey Mckeon MD Primary Care Provider [phone] Carey Mckeon MD Unavailable [phone] Jean Boone MD Unavailable [phone] Encounter Details Date Type Department Care Team (Latest Contact Info) Description 01/02/2019 Transcribe Orders [facility] 30 [place] [address] Agustin David MD [address] [place] [address] [email or web address] Sacroiliitis, not elsewhere classified (Primary Dx) Social History Tobacco Use Types [...] Description 07/04/2025 9:40 AM EST Office Visit [facility] Internal Medicine 14 [facility] [address] [place] [address] Carey Mckeon MD 14 [facility] [address] [place] [address] 08/24/2025 7:45 AM EST Appointment [facility] [place] [address] [place] [address] 3rd [place] [address] Shimon Prince MD [address] [place] [address] [email or web address] 11/26/2025 11:20 AM EDT Office Visit [facility] Internal Medicine [address] [address] Carey Mckeon MD [address] [address] 12/25/2025 11:40 AM EDT Office Visit [facility] at [address] [address] Jean Boone MD [address] [place] [address] documented as of this encounter Results * HLA-B27, BLOOD (01/02/2019 12:41 PM EDT) HLA-B27 RESULT Negative Not Applicable [facility] DPT OF LAB MED AND PAT+ INTERPRETATION SEE NOTE [facility] DPT OF LAB MED AND PAT+ Comment: (NOTE) HLA-B27 antigen was not detected. ADDITIONAL INFORMATION Method: Flow Cytometry Performing Laboratory CLIA# [id number] Blood 01/02/2019 12:4 1 PM EDT 01/02/2019 12:45 PM EDT us Agustin David MD LAB BLOOD ORDERABLES Fi nal Result [facility] DPT OF LAB MED AND PAT+ [address] [place] [address] * (ABNORMAL) CBC and differential (01/02/2019 12:41 PM EDT) WBC 9.46 3.40 - 11.20 K/uL [facility] RBC 4.43(L) 4.50 - 5.50 M/uL [facility] HGB 14.1 13.0 - 17.0 g/dL [facility] HCT 42.6 40.0 - 51.0 % [facility] PLT 293 130 - 400 K/uL [facility] MCV 96.2 79.0 - 98.0 fL [facility] MCH 31.8 27.0 - 34.8 pg [facility] MCHC 33.1 31.5 - 36.0 g/dL [facility] RDW 12.9 10.8 - 14.6 % [facility] MPV 11.0 9.4 - 12.4 fl [facility] NRBC 0.00 0.00 /100 WBCs [facility] ABSOLUTE NRBC 0.00 0.00 K/uL [facility] DIFF METHOD Auto [facility] NEUTS 78.7(H) 45.30 - 77.70 % [facility] LYMPHS 10.7(L) 12.30 - 39.70 % [facility] MONOS 8.8 4.10 - 12.80 % [facility] EOS 1.2 0 - 7.2 % [facility] BASOS 0.3 0 - 2.80 % [facility] Granulocytes, immature (%) 0.3 0.0 - 0.9 % [facility] ABSOLUTE NEUTS 7.45 1.40 - 7.70 K/uL [facility] ABSOLUTE LYMPHS 1.01 0.60 - 3.20 K/uL [facility] ABSOLUTE MONOS 0.83(H) 0.11 - 0.59 K/uL [facility] ABSOLUTE EOS 0.11 0.01 - 0.50 K/uL [facility] ABSOLUTE BASOS 0.03 0.00 - 0.08 K/uL [facility] Granulocytes, immature 0.03 0.00 - 0.05 K/uL [facility] Blood 01/02/2019 12:4 1 PM EDT 01/02/2019 12:44 PM EDT us Agustin David MD LAB BLOOD BKR ORDERABLE S Final Result Performing Organization Address [facility] [place]/[facility]/ZIP Co de Phone Number [address] [address] * Sedimentation rate (ESR) (01/02/2019 12:41 PM EDT) ESR 3 0 - 20 mm/h [facility] Blood 01/02/2019 12:4 1 PM EDT 01/02/2019 12:44 PM EDT us Agustin David MD LAB BLOOD BKR ORDERABLE S Final Result Performing Organization Address City/[facility]/ZIP Co de Phone Number [address] [address] * C-Reactive Protein (01/02/2019 12:41 PM EDT) C REACTIVE PROTEIN 0.5 0.0 - 4.0 mg/L [facility] Blood 01/02/2019 12:4 1 PM EDT 01/02/2019 12:44 PM EDT us Agustin David MD LAB BLOOD BKR ORDERABLE S Final Result Performing Organization Address City/[facility]/ZIP Co de Phone Number [address] [address] documented in this encounter Visit Diagnoses Diagnosis Sacroiliitis, not elsewhere classified- Primary documented in this encounter Additional Health Concerns Infection Onset Date Last Indicated Resolved Time CoV-Exposed Comment:Recent close contact documented in the COVID-19 Amb Triage Form 10/14/2021 10/16/2021 10/25/2021 1:22 AM E DT CoV-Risk Comment:Per Ambulatory Triage Form 10/17/2021 10/17/202110/28 1:21 AM EDT CoV-Presumed 12/14/2021 12/14/2021 01/04/2022 1:22 AM EDT documented as of this encounter Care Teams Bakery Machine Mechanic Relationship Specialty Start Date End Date Carey Mckeon MD [address] [place] [address] PCP - General 08/05/17 Ed Hunt MD [address] [place] [address], [address] [place] [address] Historical LMR Provider 05/17/17 08/09/21 Sandra Martínez CNP [address] [place] [address] Historical LMR Provider 05/17/17 Brodie Multani MD [address] [place] [address], 2nd [place] [address] Historical LMR Provider 05/17/17 08/09/21 Carey Mckeon MD [address] [place] [address] Historical LMR Provider 05/17/17 Main Sanchez MD Historical LMR Provider 05/17/17 08/09/21 Larry Traylor MD [address] [place] [address] Historical LMR Provider 05/17/17 Carey Mckeon MD [address] [place] [address] [place] [address] [email or web address] Insurance Assigned Provider 07/03/17 02/11/19 Carey Mckeon MD [address] [place] [address] [place] [address] [email or web address] Insurance Assigned Provider 11/06/23 Jean Boone MD [address] [place] [address] [email or web address] Medical Oncology 11/15/24 documented as of this encounter Additional Source Comments The information contained in this document represents components of the legal health record. It is not the complete legal health record.[facility]
--- OUTSIDE RECORDS SUMMARY | 2025-06-26 16:45 | XMS_ITS | Encounter Summary ---
Author Organization [facility] Address [address] [place] [address] Phone Care Team Providers Care Storage Garage Attendant Name Role Phone Ed Hunt MD Unavailable Sandra Martínez ASSEMBLY CLEANER Unavailable [phone] Brodie Multani MD Unavailable Carey Mckeon MD Unavailable [phone] Main Sanchez MD Unavailable Unavailable Larry Traylor MD Unavailable [phone] Carey Mckeon MD Primary Care Provider [phone] Carey Mckeon MD Unavailable [phone] Jean Boone MD Unavailable [phone] Encounter Details Date Type Department Care Team (Late st Contact Info) Description 06/21/2019 Procedure Pass [address] [place] [address] Social History Tobacco Use Types Packs/Day Years [...] - - Weight 72.6 kg (160 lb) 06/22/2019 11:02 AM EST Height 177.8 cm (5' 10 ) 06/22/2019 11:02 AM EST Body Mass Index 22.96 06/22/2019 11:02 AM EST documented in this encounter Plan of Treatment Upcoming Encounters Date Type Department Care Team (Late st Contact Info) Description 07/04/2025 9:40 AM EST Office Visit [facility] Internal Medicine 14 [facility] [address] [place] [address] Carey Mckeon MD 14 [facility] [address] [place] [address] [email or web address] 08/24/2025 7:45 AM EST Appointment [facility] [address] [place] [address] Shimon Prince MD [address] [place] [address] [email or web address] 11/26/2025 11:20 AM EDT Office Visit [facility] Internal Medicine 14 [facility] [address] [place] [address] Carey Mckeon MD [address] [address] 12/25/2025 11:40 AM EDT Office Visit [facility] at [address] [address] Jean Boone MD [address] [place] [address] documented as of this encounter Visit Diagnoses [...] documented as of this encounter Care Teams Storage Garage Attendant Relationship Specialty Start Date End Date Carey Mckeon MD [address] [place] [address] PCP - General 08/05/17 Ed Hunt MD [address] [place] [address], [address] [place] [address] Historical LMR Provider 05/17/17 08/09/21 Sandra Martínez CNP [address] [place] [address] Historical LMR Provider 05/17/17 Brodie Multani MD [address] [place] [address], 2nd [place] [address] Historical LMR Provider 05/17/17 08/09/21 Carey Mckeon MD [address] [place] [address] Historical LMR Provider 05/17/17 Main Sanchez MD Historical LMR Provider 05/17/17 08/09/21 Larry Traylor MD [address] [place] [address] Historical LMR Provider 05/17/17 Carey Mckeon MD [address] [place] [address] [address] [place] [address] [email or web address] Insurance Assigned Provider 11/06/23 Jean Boone MD [address] [place] [address] [email or web address] Medical Oncology 11/15/24 documented as of this encounter Additional Source Comments The information contained in this document represents components of the legal health record. It is not the complete legal health record.[facility]
--- OUTSIDE RECORDS SUMMARY | 2025-06-26 16:45 | XMS_ITS | Encounter Summary ---
Author Organization [facility] Address [address] [place] [address] Phone Care Team Providers Care Insole Channeler Name Role Phone Sandra Martínez TELEPHONE AD TAKER Unavailable + [phone] Carey Mckeon MD Unavailable [phone] Carey Mckeon MD Primary Care Provider [phone] Carey Mckeon MD Unavailable [phone] Jean Boone MD Unavailable [phone] Encounter Details Date Type Department Care Team (Late st Contact Info) Description 06/19/2024 Procedure Pass [facility], Ct Scan - [address] [address] Social History Tobacco Use Types Packs/Day Years [...] Description 07/04/2025 9:40 AM EST Office Visit [facility] Internal Medicine [address] [address] Carey Mckeon MD [address] [place] [address] 08/24/2025 7:45 AM EST Appointment [facility] [place] [address] [place] [address] 3rd [place] [address] Shimon Prince MD [address] [place] [address] [email or web address] 11/26/2025 11:20 AM EDT Office Visit [facility] Internal Medicine [address] [address] Carey Mckeon MD [address] [place] [address] 12/25/2025 11:40 AM EDT Office Visit [facility] 30 [place] [address] Jean Boone MD [address] [place] [address] documented as of this encounter Visit Diagnoses Not on filedocumented in this encounter Additional Health Concerns Assessment Noted Time PHQ-2 Depression Total Score: 1 07/21/20 23 3:34 PM EST documented as of this encounter Care Teams Insole Channeler Relationship Specialty Start Date End Date Carey Mckeon MD [address] [place] [address] [place] [address] PCP - General 08/05/17 Sandra Martínez, TELEPHONE AD TAKER [address] [place] [address] Historical LMR Provider 05/17/17 Carey Mckeon MD [address] [place] [address] Historical LMR Provider 05/17/17 Carey Mckeon MD [address] [place] [address] Insurance Assigned Provider 11/06/23 Jean Boone MD [address] [place] [address] Medical Oncology 11/15/24 documented as of this encounter Additional Source Comments The information contained in this document represents components of the legal health record. It is not the complete legal health record.[facility]
--- OUTSIDE RECORDS SUMMARY | 2025-06-26 16:45 | XMS_ITS | Encounter Summary ---
Author Organization [facility] Address [address] [place] [address] Phone Care Team Providers Care Pipeline Welder Name Role Phone Sandra Martínez RESIDENTIAL FRAMING CARPENTER Unavailable + [phone] Carey Mckeon MD Unavailable [phone] Carey Mckeon MD Primary Care Provider + [phone] Carey Mckeon MD Unavailable [phone] Jean Boone MD Unavailable [phone] Encounter Details Date Type Department Care Team (Late st Contact Info) Description 12/08/2024 Procedure Pass [facility], [address] [address] Social History Tobacco Use Types Packs/Day Years [...] - Inhaled Oxygen Concentration - - Weight 73.5 kg (162 lb) 12/08/2024 7:40 PM EDT Height 175.3 cm (5' 9 ) 12/08/2024 7:40 PM EDT Body Mass Index 23.92 12/08/2024 7:40 PM EDT documented in this encounter Plan of Treatment Upcoming Encounters Date Type Department Care Team (Late st Contact Info) Description 07/04/2025 9:40 AM EST Office Visit [facility] Internal Medicine [address] [address] Carey Mckeon MD [address] [place] [address] 08/24/2025 7:45 AM EST Appointment [facility] [place] [address] [place] [address] 3rd [place] [address] Shimon Prince MD [address] [place] [address] [email or web address] 11/26/2025 11:20 AM EDT Office Visit [facility] Internal Medicine 14 [facility] [address] [place] [address] Carey Mckeon MD [address] [place] [address] 12/25/2025 11:40 AM EDT Office Visit [facility] [place] [facility] 30 [place] [address] Jean Boone MD 30 [place] [address] documented as of this encounter Visit Diagnoses Not on filedocumented in this encounter Additional Health Concerns Assessment Noted Time PHQ-2 Depression Total Score: 2 11/16/19 1:52 PM EDT documented as of this encounter Care Teams Pipeline Welder Relationship Specialty Start Date End Date Carey Mckeon MD [address] [place] [address] PCP - General 08/05/17 Sandra Martínez, RESIDENTIAL FRAMING CARPENTER [address] [place] [address] Historical LMR Provider 05/17/17 Carey Mckeon MD [address] [place] [address] Historical LMR Provider 05/17/17 Carey Mckeon MD [address] [place] [address] Insurance Assigned Provider 11/06/23 Jean Boone MD [address] [place] [address] Medical Oncology 11/15/24 documented as of this encounter Additional Source Comments The information contained in this document represents components of the legal health record. It is not the complete legal health record.[facility]
--- OUTSIDE RECORDS SUMMARY | 2025-06-26 16:45 | XMS_ITS | Encounter Summary ---
Author Organization [facility] Address [address] [place] [address] Phone Care Team Providers Care Grove Superintendent Name Role Phone Sandra Martínez AVP Unavailable [phone] Carey Mckeon MD Unavailable [phone] Carey Mckeon MD Primary Care Provider [phone] Carey Mckeon MD Unavailable [phone] Jean Boone MD Unavailable [phone] Encounter Details Date Type Department Care Team (Late st Contact Info) Description 12/23/2022 Transcribe Orders [facility] 30 [place] [address] Carey Mckeon MD [address] [place] [address] [place] [phone] [email or web address] Social History Tobacco Use Types Packs/Day Years [...] with a working camera? Not on file Sex and Gender Information Value Date Recorded [...] Visit [facility] Internal Medicine 14 [facility] [address] [place] [address] Carey Mckeon MD 14 [facility] [address] [place] [address] [email or web address] 08/24/2025 7:45 AM EST Appointment [facility] [place] [address] [place] [address] [address] [place] [address] Shimon Prince MD [address] [place] [address] [email or web address] 11/26/2025 11:20 AM EDT Office Visit [facility] Internal Medicine 14 [facility] [address] [place] [address] Carey Mckeon MD 14 [facility] [address] [place] [address] 12/25/2025 11:40 AM EDT Office Visit [facility] 30 [place] [address] Jean Boone MD [address] [place] [address] documented as of this encounter Visit Diagnoses Not on filedocumented in this encounter Additional Health Concerns Assessment Noted Time PHQ-2 Depression Total Score: 0 07/20/20 22 2:08 PM EST documented as of this encounter Care Teams Grove Superintendent Relationship Specialty Start Date End Date Carey Mckeon MD 14 [facility] [address] [place] [address] [email or web address] PCP - General 08/05/17 Sandra Martínez, JABARI [address] [place] [address] [email or web address] Historical LMR Provider 05/17/17 Carey Mckeon MD [address] [place] [address] Historical LMR Provider 05/17/17 Carey Mckeon MD [address] [place] [address] Insurance Assigned Provider 11/06/23 Jean Boone MD [address] [place] [address] [email or web address] Medical Oncology 11/15/24 documented as of this encounter Additional Source Comments The information contained in this document represents components of the legal health record. It is not the complete legal health record.[facility]
--- OUTSIDE RECORDS SUMMARY | 2025-06-26 16:45 | XMS_ITS | Clinical Summary ---
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
--- OUTSIDE RECORDS SUMMARY | 2025-06-26 16:45 | XMS_ITS | Encounter Summary ---
Author Organization [facility] Address [address] [place] [address] Phone Care Team Providers Care Account Information Clerk Name Role Phone Sandra Martínez ASSEMBLER METAL BUILDING Unavailable [phone] Carey Mckeon MD Unavailable [phone] Carey Mckeon MD Primary Care Provider [phone] Carey Mckeon MD Unavailable [phone] Jean Boone MD Unavailable [phone] Encounter Details Date Type Department Care Team (Late st Contact Info) Description 07/17/2022 Prep for Surgery [facility] Orthopedics & Sports Medicine [address] [place] [address] Hilda Krueger MD [address] [place] [address] Orthopedics & Sports Medicine, [facility] [place] [address] [email or web address] Social History Tobacco Use Types Packs/Day Years [...] Description 07/04/2025 9:40 AM EST Office Visit [facility] Internal Medicine [address] [address] Carey Mckeon MD [address] [place] [address] 08/24/2025 7:45 AM EST Appointment [facility] [address] 3rd [place] [address] Shimon Prince MD [address] [place] [address] [email or web address] 11/26/2025 11:20 AM EDT Office Visit [facility] Internal Medicine [address] [address] Carey Mckeon MD [address] [place] [address] 12/25/2025 11:40 AM EDT Office Visit [facility] at [address] [address] Jean Boone MD [address] [place] [address] documented as of this encounter Visit Diagnoses Not on filedocumented in this encounter Care Teams Account Information Clerk Relationship Specialty Start Date End Date Carey Mckeon MD [address] [address] PCP - General 08/05/17 Sandra Martínez, ASSEMBLER METAL BUILDING [address] [place] [address] Historical LMR Provider 05/17/17 Carey Mckeon MD [address] [place] [address] [place] [address] [email or web address] Historical LMR Provider 05/17/17 Carey Mckeon MD [address] [place] [address] [place] [address] [email or web address] Insurance Assigned Provider 11/06/23 Jean Boone MD [address] [place] [address] [email or web address] Medical Oncology 11/15/24 documented as of this encounter Additional Source Comments The information contained in this document represents components of the legal health record. It is not the complete legal health record.[facility]
--- OUTSIDE RECORDS SUMMARY | 2025-06-26 16:46 | XMS_ITS | Encounter Summary ---
Author Organization [facility] Address [address] [place] [address] Phone Care Team Providers Care Channel Cementer Insole Machine Name Role Phone Sandra Martínez TWITCHELL OPERATOR Unavailable + [phone] Carey Mckeon MD Unavailable [phone] Carey Mckeon MD Primary Care Provider [phone] Carey Mckeon MD Unavailable [phone] Jean Boone MD Unavailable [phone] Encounter Details Date Type Department Care Team (Late st Contact Info) Description 05/01/2025 Procedure Pass [facility], [address] [address] Social History Tobacco Use Types Packs/Day Years [...] - - Weight 70.3 kg (155 lb) 05/04/2025 4:32 PM EDT Height 175.3 cm (5' 9 ) 05/04/2025 4:32 PM EDT Body Mass Index 22.89 05/04/2025 4:32 PM EDT documented in this encounter Plan of Treatment Upcoming Encounters Date Type Department Care Team (Late st Contact Info) Description 07/04/2025 9:40 AM EST Office Visit [facility] Internal Medicine [address] [address] Carey Mckeon MD [address] [place] [phone] 08/24/2025 7:45 AM EST Appointment [facility] [address]rd [place] [address] Shimon Prince MD [address] [place] [phone] [email or web address] 11/26/2025 11:20 AM EDT Office Visit [facility] Internal Medicine 14 [facility] [address] [place] [address] Carey Mckeon MD [address] [place] [address] 12/25/2025 11:40 AM EDT Office Visit [facility] [address] [place] [address] Jean Boone MD 30 [place] [address] documented as of this encounter Visit Diagnoses Not on filedocumented in this encounter Additional Health Concerns Assessment Noted Time PHQ-2 Depression Total Score: 2 11/16/19 1:52 PM EDT documented as of this encounter Care Teams Channel Cementer Insole Machine Relationship Specialty Start Date End Date Carey Mckeon MD [address] [place] [address] PCP - General 08/05/17 Sandra Martínez, TWITCHELL OPERATOR [address] [place] [address] Historical LMR Provider 05/17/17 Carey Mckeon MD [address] [place] [address] Historical LMR Provider 05/17/17 Carey Mckeon MD [address] [place] [address] Insurance Assigned Provider 11/06/23 Jean Boone MD [address] [place] [address] Medical Oncology 11/15/24 documented as of this encounter Additional Source Comments The information contained in this document represents components of the legal health record. It is not the complete legal health record.[facility]
--- OUTSIDE RECORDS SUMMARY | 2025-06-26 16:46 | XMS_ITS | Encounter Summary ---
Author Organization [facility] Address [address] [place], [place] [phone] Phone Care Team Providers Care Boom Cat Operator Name Role Phone Mauricio Sandra Nelli CLOUD SUBJECT MATTER EXPERT Unavailable + [phone] Carey Mckeon MD Unavailable [phone] Carey Mckeon MD Primary Care Provider [phone] Carey Mckeon MD Unavailable [phone] Jean Boone MD Unavailable [phone] Reason for Referral * MRI/CAT Scan - Closed Specialty Diagnoses / Procedures Referred By Contaleksandar t Referred To Contact Radiology Diagnoses Spinal stenosis, lumbar region with neurogenic claudication Procedures MRI Lumbar Spine Conrado Ramirez PA [address] [place] [address] Phone: tel: fax: Referral ID Status Reason Start Date Expiration Date Visits Re quested Visits Authorized [id number] Closed 05/01/2025 05/01/2026 1 1 Encounter Details Date Type Department Care Team (Late st Contact Info) Description 05/01/2025 Transcribe Orders Virtual Department 30 [place] [address] Conrado Ramirez PA [address] [place] [phone] Spinal stenosis, lumbar region with neurogenic claudication (Primary Dx) Social History Tobacco Use Types Packs/Day Years Used Date Smoking Tobacco: Former Cigarettes Q uit: 1992 Smokeless Tobacco: Former Alcohol Use Standard Drinks/Week [...] Description 07/04/2025 9:40 AM EST Office Visit [facility] Internal Medicine [address] [address] Carey Mckeon MD 14 [facility] [address] [place] [address] 08/24/2025 7:45 AM EST Appointment [facility] [address] [facility] 3rd [place] [address] Shimon Prince MD [address] [place] [phone] [email or web address] 11/26/2025 11:20 AM EDT Office Visit [facility] Internal Medicine 14 [facility] [address] [place] [address] Carey Mckeon MD 14 [facility] [address] [place] [address] 12/25/2025 11:40 AM EDT Office Visit [facility] 30 [place] [address] Jean Boone MD 30 [place] [address] [email or web address] documented as of this encounter Results * MRI LUMBAR SPINE (NEURO) WITH AND [...] January 15, 2024 lumbar spineMRI. Conrado ECHOLS G MR XSPECIALTY Final Result documented in this encounter Visit Diagnoses Diagnosis Spinal stenosis, lumbar region with neurogenic claudication- Primary Spinal stenosis, lumbar region with neurogenic claudication documented in this encounter Additional Health Concerns Assessment Noted Time PHQ-2 Depression Total Score: 2 11/16/19 25 1:52 PM EDT documented as of this encounter Care Teams Boom Cat Operator Relationship Specialty Start Date End Date Carey Mckeon MD [address] [place] [address] PCP - General 1/4/18 Sandra Martínez CNP [address] [place] [address] [place] [address] [email or web address] Historical LMR Provider 05/17/17 Carey Mckeon MD [address] [place] [address] [place] [address] [email or web address] Historical LMR Provider 05/17/17 Carey Mckeon MD [address] [place] [address] [email or web address] Insurance Assigned Provider 11/06/23 Jean Boone MD [address] [place] [address] [email or web address] Medical Oncology 11/15/24 documented as of this encounter Additional Source Comments The information contained in this document represents components of the legal health record. It is not the complete legal health record.[facility]
[2025-07-11 10:29] VITALS: BMI 22.9
--- NOTE | 2025-07-11 10:48 | HO.ANESPROP2 ---
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 followed by [facility] vascular surgery stable PMFSH Active Problems Active Problems: All Active Problems Neuroforaminal stenosis of lumbosacral spine (Acute) Lumbar stenosis with neurogenic claudication (Acute) Lumbar spinal stenosis (Acute) Past Medical History Medical History BPH (benign prostatic hyperplasia) Stage 3 chronic kidney disease Iliac artery aneurysm, 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 Spinal stenosis of lumbosacral region Back pain Hx-TIA (transient ischemic attack) (~2021) HLD (hyperlipidemia) HTN (hypertension) Hypothyroidism GERD (gastroesophageal reflux disease) 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 History of urinary retention Hx of diverticulitis of colon Family History Family history of problems with anesthesia: No Surgical History Surgical History History of back surgery History of carpal tunnel release History of skin surgery Hx of nasal septoplasty Hx of colonoscopy History of colon surgery (~2005) History of Problems with Anesthesia: No Social History Social History Household Members: Spouse Household Members Other:: ex- Housing: House Are you a primary healthcare management to a significant other at home: No Do you presently have visiting nurse or other home services: No Patient Tobacco Use Status: Former Tobacco user Tobacco use type: Cigarette Years Smoked: 30 Use of substances other than those prescribed or required for medical reasons: Yes Substance Use Type: Marijuana Substance Use Type Other:: vapes daily-advised to hold 3 days pre-op Substance Use Frequency: Daily Have you been hit, kicked, punched, or otherwise hurt by someone within the past year? If so, by whom?: No Spiritual Healthcare Practices: no Buddhist Healthcare Practices: no Cultural Healthcare Practices: no Are you DNR?: No Advance Directives Information Provided: Yes (asa roshan noted) Advance Directives on File: No Meds Allergies Allergy/AdvReac Type Severity Reaction Status Date / Time No Known Allergies Allergy Verified 05/25/25 13:23 Home Medications ?Medication ?Instructions ?Recorded ?Confirmed ?Last Taken ?Type alfuzosin 10 mg tablet,extended 10 mg PO BEDTIME 05/17/24 07/10/25 Unknown History release 24 hr atorvastatin 40 mg tablet 40 mg PO BEDTIME 05/17/24 07/11/25 Unknown History famotidine 20 mg tablet 20 mg PO BID 05/17/24 07/18/25 07/18/25 History levothyroxine 137 mcg tablet 137 mcg PO QAM 05/17/24 07/18/25 07/18/25 History losartan 100 mg tablet 100 mg PO BEDTIME 05/17/24 07/11/25 11/22/24 History sucralfate 1 gram tablet 1 g PO BID 05/17/24 07/10/25 Unknown History aspirin 81 mg tablet,delayed 81 mg PO QAM 09/22/24 07/11/25 11/16/24 History release Held on 11/23/24. Instructions: Resume on 11/30/24. You may resume aspirin 1 week after surgery cholecalciferol (vitamin D3) 25 25 mcg PO QAM 09/22/24 07/11/25 Unknown History mcg (1,000 unit) capsule (Vitamin D3) cyanocobalamin (vitamin B-12) 3,000 mcg PO QAM 09/22/24 07/11/25 Unknown History 1,000 mcg tablet (Vitamin B-12) ferrous sulfate 325 mg (65 mg 325 mg PO QAM 09/22/24 07/11/25 11/22/24 History iron) tablet (iron) hyoscyamine sulfate 0.125 mg 0.125 mg PO QID PRN 09/22/24 07/10/25 Unknown History tablet (Levsin) Gastrointestinal Spasms Or Cramping naproxen sodium 220 mg capsule 440 mg PO BID 07/10/25 07/10/25 Unknown History (Aleve) docusate sodium 100 mg capsule 100 mg PO BID PRN Constipation 07/11/25 07/10/25 Unknown History (Colace) metoprolol succinate 25 mg 25 mg PO BEDTIME 07/11/25 07/11/25 Unknown History tablet,extended release 24 hr Exam Height,Weight and Vital Signs: Height 5 ft 9 in Weight 70.307 kg Pertinent Lab Results Pertinent Lab Results: CBC 07/05/25 H&H slight decrease 12.7 and 38.8 CMP 07/05/25 BUN/Creat slight increase 32 % 1.7 Protein slight decrease 6.1 Narrative Narrative: EKG 07/2025 SB @ 55 Assessment and Plan Assessment Anesthesia Assessment: Chart Reviewed Final Anesthetic Review Family History of Problems with Anesthesia: No History of Problems with Anesthesia: No Documented by User: Elizabeth Arguello MD 07/18/25 08:40 PMF Past Medical History Medical History BPH (benign prostatic hyperplasia) Stage 3 chronic kidney disease Iliac artery aneurysm, 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 Spinal stenosis of lumbosacral region Back pain Hx-TIA (transient ischemic attack) (~2021) HLD (hyperlipidemia) HTN (hypertension) Hypothyroidism GERD (gastroesophageal reflux disease) 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 History of urinary retention Hx of diverticulitis of colon Surgical History Surgical History History of back surgery History of carpal tunnel release History of skin surgery Hx of nasal septoplasty Hx of colonoscopy History of colon surgery (~2005) Social History Social History Household Members: Spouse Household Members Other:: ex- Housing: House Are you a primary healthcare management to a significant other at home: No Do you presently have visiting nurse or other home services: No Patient Tobacco Use Status: Former Tobacco user Tobacco use type: Cigarette Years Smoked: 30 Use of substances other than those prescribed or required for medical reasons: Yes Substance Use Type: Marijuana Substance Use Type Other:: vapes daily-advised to hold 3 days pre-op Substance Use Frequency: Daily Have you been hit, kicked, punched, or otherwise hurt by someone within the past year? If so, by whom?: No Spiritual Healthcare Practices: no Buddhist Healthcare Practices: no Cultural Healthcare Practices: no Are you DNR?: No Advance Directives Information Provided: Yes (charles islas noted) Advance Directives on File: No Meds Allergies Allergy/AdvReac Type Severity Reaction Status Date / Time No Known Allergies Allergy Verified 05/25/25 13:23 Home Medications ?Medication ?Instructions ?Recorded ?Confirmed ?Last Taken ?Type alfuzosin 10 mg tablet,extended 10 mg PO BEDTIME 05/17/24 07/10/25 Unknown History release 24 hr atorvastatin 40 mg tablet 40 mg PO BEDTIME 05/17/24 07/11/25 Unknown History famotidine 20 mg tablet 20 mg PO BID 05/17/24 07/18/25 07/18/25 History levothyroxine 137 mcg tablet 137 mcg PO QAM 05/17/24 07/18/25 07/18/25 History losartan 100 mg tablet 100 mg PO BEDTIME 05/17/24 07/11/25 11/22/24 History sucralfate 1 gram tablet 1 g PO BID 05/17/24 07/10/25 Unknown History aspirin 81 mg tablet,delayed 81 mg PO QAM 09/22/24 07/11/25 11/16/24 History release Held on 11/23/24. Instructions: Resume on 11/30/24. You may resume aspirin 1 week after surgery cholecalciferol (vitamin D3) 25 25 mcg PO QAM 09/22/24 07/11/25 Unknown History mcg (1,000 unit) capsule (Vitamin D3) cyanocobalamin (vitamin B-12) 3,000 mcg PO QAM 09/22/24 07/11/25 Unknown History 1,000 mcg tablet (Vitamin B-12) ferrous sulfate 325 mg (65 mg 325 mg PO QAM 09/22/24 07/11/25 11/22/24 History iron) tablet (iron) hyoscyamine sulfate 0.125 mg 0.125 mg PO QID PRN 09/22/24 07/10/25 Unknown History tablet (Levsin) Gastrointestinal Spasms Or Cramping naproxen sodium 220 mg capsule 440 mg PO BID 07/10/25 07/10/25 Unknown History (Aleve) docusate sodium 100 mg capsule 100 mg PO BID PRN Constipation 07/11/25 07/10/25 Unknown History (Colace) metoprolol succinate 25 mg 25 mg PO BEDTIME 07/11/25 07/11/25 Unknown History tablet,extended release 24 hr Exam Airway Mallampati Class: II TM Dist: >3cm Neck ROM: Limited Heart: rrr Lungs: cta Assessment and Plan Assessment Anesthesia Assessment: Anesthesia Plan Discussed Final Anesthetic Review NPO: Yes ASA Class: II Final Preanesthetic Review: No Changes in Pt Med Stat, Meds/Allgs Chart Reviewed, Consent Obtained/Reviewed and Anes Risks/Benef Reviewed Patient Risk: Intermediate Procedure Risk: Intermediate Anesthetic Plan Anesthetic Plan: GA and Agree w/ Assess. and Plan Disposition: Standard PACU
[2025-07-18] VITALS (12 sets, daily range): BP systolic 132–209; BP diastolic 66–91; PULSE 42–70; RESP 12–16; TEMP 36.1–36.3; O2SAT 95–100
--- NOTE | ~2025-07-18 | FL_ITS ---
EXAMINATION: XR FLUOROSCOPY WITH IMAGES CLINICAL INFORMATION: Left L4-5 foraminotomy COMPARISON: X-ray 01/24/2025 TECHNIQUE: Fluoroscopy time: 3.5 seconds DAP: 0.7 mGy Images: 1 FINDINGS: Fluoroscopy provided for surgery. On the spot view, there are surgical instrument projected posterior to the lower lumbar spine. No radiologist present. FL/FL guidance in OR IMPRESSION: Fluoroscopy provided for surgery. See surgical report for details. Electronically signed by: Andres Earl MD 07/19/2025 07:55 AM EST
--- NOTE | 2025-07-18 06:56 | MHC.SHP ---
Pre-Procedural Eval Section A - 24 Hr Update-Section A only Date of Service: 07/18/25 Section B - Complete if H&P > 30 days Chief Complaint: Spinal stenosis, lumbosacral region Allergies: Allergies Allergy/AdvReac Type Severity Reaction Status Date / Time No Known Allergies Allergy Verified 05/25/25 13:23 Review of Systems Sugical H&P ROS: Negative: Constitution, Cardiovascular, Respiratory, Neurological, Psychiatric, Hem-Onc, Allergic/Immunologic, Gastrointestinal, Genitourinary, Musculoskeletal, Integumentary, Endocrine and Eyes/Ears/Nose/Throat Exam Surgical H&P Exam: Not Evaluated: HEENT, Not Evaluated: Heart, Not Evaluated: Lungs, Not Evaluated: Extremities, Not Evaluated: Abdomen, Not Evaluated: Skin and Not Evaluated: Neurological Exam Comment: The patient is awake, alert, in no acute distress. Proposed surgical incision site is clean, dry, with no signs of recent trauma. Plan Diagnosis/Plan: Unchanged I have reviewed the history and physical and performed a pertinent physical examination on my patient. No changes have occurred unless specified. Plan remains the same, left L5 foraminotomy. Time Spent With Patient Time: Total time managing care of this patient today __7__ minutes.
[2025-07-18] MEDS: Lactated Ringers 1,000 ML 100 ML IVCONT (07:21)
--- NOTE | 2025-07-18 11:14 | P.OP_ITS ---
Operative Note Operative Note Date of Service: 07/18/25 Narrative: Preoperative Diagnosis: Spinal stenosis/lateral recess stenosis/neural foraminal stenosis Operation: L5 Laminotomy, Partial facetectomy and foraminotomy with use of microscope Consent Informed Consent was obtained for this operation. I have explained the nature, purpose and benefits of the operation. I have discussed the risks and benefit of the operation including possible complications or adverse events with baljeet ent/family. Alternative(s) were discussed with the patient with their relative benefits and risks as well as the consequences of not accepting the operation were included in obtaining consent. Surgeon: LAURI FRASER MD, PHD Procedure Assisted By: Conrado Ramirez PA-C Description of Procedure This patient previously underwent an L4-5 decompression. MRI shows an excellent duration of the central canal. He continues to complain of left lumbar radiculopathy with the MRI showing residual L5 foraminal stenosis. The patient was offered a left L5 foraminotomy.. The procedure complications were explained. The patient was consented. The patient was brought to the operating room and endotracheally intubated. The patient was turned in prone position on the Domenic frame. Prep and drape was done followed by timeout. Physician assistant professor of anthropology provided access. A mid lumbar incision was made followed by release of the paravertebral muscle on the left side to expose the L5 lamina and facet joint. An intraoperative x-ray was obtained to confirm the correct level. The microscope was brought in. I took over the procedure. The high-speed drill was used to do a L5 laminotomy. #2 Kerrison was used to further remove the lamina towards the L5 foramen. With a nerve hook the medial wall of the L5 pedicle was palpated as well as the beginning of the L5 foramen. The facet joint was partially drilled down after which with a #2 Kerrison a foraminotomy was done. Finally a foraminotomy Kerrison was used to complete the foraminotomy. A long nerve hook could be easily passed lateral and dorsally from the nerve root, a sign of relief of the neuroforaminal stenosis and decompression of the nerve root . The microscope was removed. Hemostasis was done. Incision was closed in 2 layers. Steri-Strips were used to approximate incision. An OpSite with Tegaderm was used to cover the incision. All sponge needle counts were correct. Patient was extubated and transported in stable is to recovery room. Anesthesia: General Estimated Blood Loss (ml): Minimal Duration of Surgery: Under 60 Minutes Postoperative Plan: Discharge to home
--- NOTE | 2025-07-18 11:24 | P.DS_ITS ---
DS: Providers Provider Date of discharge: 07/18/25 Primary care physician: Carey Mckeon MD DS: Summary Time Attestation Discharge Coordination Time (in mins): 12 Quality: Safe Use of Opioids Does Pt have an Active Cancer Diagnosis on the Problem List?: No Quality: Stroke Does the patient have a stroke diagnosis?: No Physical Exam Vital Signs: Vital Signs: Last Vital Signs Temp 97.4 F 07/18/25 07:22 Pulse 69 07/18/25 07:22 Resp 16 07/18/25 07:22 BP 185/71 H 07/18/25 07:47 Pulse Ox 100 07/18/25 07:22 O2 Del Method Room Air 07/18/25 07:22 BMI result Body Mass Index 22.9 Discharge Plan Discharge Patient Disposition: Home, Self-Care Referrals: Carey Mckeon MD [Primary Care Provider, Internal Medicine] - 1 Week Discharge Medications: Continued cyanocobalamin (vitamin B-12) [Vitamin B-12] 1,000 mcg Tablet 3,000 mcg PO QAM hyoscyamine sulfate [Levsin] 0.125 mg Tablet 0.125 mg PO QID PRN (Reason: Gastrointestinal Spasms Or Cramping) ferrous sulfate [iron] 325 mg (65 mg iron) Tablet 325 mg PO QAM cholecalciferol (vitamin D3) [Vitamin D3] 25 mcg (1,000 unit) Capsule 25 mcg PO QAM docusate sodium [Colace] 100 mg capsule 100 mg PO BID PRN (Reason: Constipation) metoprolol succinate 25 mg tablet extended release 24 hr 25 mg PO BEDTIME alfuzosin 10 mg tablet extended release 24 hr 10 mg PO BEDTIME sucralfate 1 gram tablet 1 g PO BID losartan 100 mg tablet 100 mg PO BEDTIME atorvastatin 40 mg tablet 40 mg PO BEDTIME famotidine 20 mg tablet 20 mg PO BID levothyroxine 137 mcg tablet 137 mcg PO QAM Held aspirin 81 mg Tablet,Delayed Release (Dr/Ec) 81 mg PO QAM Hold Instructions: Resume on 07/22/25. naproxen sodium [Aleve] 220 mg Capsule 440 mg PO BID Hold Instructions: Resume on 07/19/25. Discharge Orders: Discharge Order (Routine); Ordered 07/18/25 Ordered By: Conrado Ramirez Diet: Advance to usual diet Activity on Discharge: As tolerated Activity Restrictions/Additional Instructions: After your spinal surgery we ask you to observe the following restrictions/gu idelines: Activity: It is normal to feel some discomfort as you increase your activity, but that will improve with time. We ask you avoid heavy lifting or acitivities that cause pain. As a general rule, 8lbs is a safe limit for lifting right after surgery. Walk as much as you feel comfortable but not to exhaustion. You will feel extra tired the first few days after surgery. Stay well hydrated. It is OK to walk up and down stairs You may return to driving when you are off narcotics (such as vicodin, oxycodone, dilaudid, etc), and you are back to normal functional capacity. If you have any concerns please check with office before driving. Return to work is specific to each patient and each surgery, so please speak with your doctor/PA at first follow up. Please bring paperwork such as FMLA at that time if you need it filled out. Medications: We recommend you take 500mg Tylenol every 4 hours for the first week after jaxson adilia, if you do not have any liver issues and can tolerate this medication. Do not exceed 4,000mg daily. We also recommend you take Ibuprofen 600mg every 8 hours for the first week after surgery starting on post op day 1, ?if you do not have any kidney or sugar control issues and can tolerate this medication. Do not exceed 2,000mg daily. If you are on a narcotic, it is a good idea to take a stool softener such as colace or senna to avoid constipation If you take blood thinner such as aspirin, Plavix, Coumadin, Effient, Eliquis etc for conditions such as Afib, DVT, Pulmonary embolus, coronary disease, stents etc please speak with your surgeon about specific details as to when you can resume these medications. You can resume NSAIDs on post op day 1 (eg: Motrin, Naproxen, etc). Follow up: Please call the office, , after surgery to arrange a 3 week follow up for wound check. Wound Care: You may remove your dressing on the first day after surgery. ?You may ?leave open to air. Please do not remove the steri strips underneath. they will fall off on their own in one week. IT IS NORMAL FOR THE WOUND TO OOZE OR BE BLOODY FOR A FEW DAYS AFTER SURGERY. ?IF THIS HAPPENS JUST PLACE NEW DRESSING OVER IT TO AVOID STAINING CLOTHES. You may shower on post op day # 1 We ask that you do not let the water soak the wound. If it does get wet, just towel dry lightly. Please do not scrub your incision or place any type of chemical/ointment on the wound. No tub baths, pools or jacuzzis for one month. If you have any leaking or redness from your wound, or fevers, please call the office. Print Language: Dutch
== END 2025-07-18 13:11 | disposition home or self-care (01) ==
PROVIDERS: PCP Internal Medicine; Visit Provider Neurological Surgery
PROC: (CPT 63047; principal; 2025-07-18 09:30)
DX: M48.07 Spinal stenosis, lumbosacral region (principal); M54.16 Radiculopathy, lumbar region; M54.30 Sciatica, unspecified side; I12.9 Hypertensive chronic kidney disease with stage 1 through stage 4 chronic kidney disease, or unspecified chronic kidney disease; N18.30 Chronic kidney disease, stage 3 unspecified; I71.43 Infrarenal abdominal aortic aneurysm, without rupture; E78.5 Hyperlipidemia, unspecified; E03.9 Hypothyroidism, unspecified; H91.93 Unspecified hearing loss, bilateral; Z85.828 Personal history of other malignant neoplasm of skin; Z92.3 Personal history of irradiation; Z79.899 Other long term (current) drug therapy; Z98.890 Other specified postprocedural states; Z87.891 Personal history of nicotine dependence
CPT/HCPCS: 63047; J0131; J0690; J1100; J2003; J2405; J2704; J3010

== ENCOUNTER → 2025-07-18 06:51 | Outpatient (BNV) | payer MEDICARE, SELFPAY | PROVIDERS: PCP Internal Medicine; Visit Provider Neurological Surgery | DX: M54.16 Radiculopathy, lumbar region (principal) | CPT/HCPCS: 63047; 99499 ==